=== PATIENT | male | born 1960 | race Caucasian/White ===

== ENCOUNTER 2018-09-05 00:58 | Emergency (ER) | payer OTHER ==
[~2018-09-05] VITALS: Ht 170.2 cm; Wt 59.0 kg
--- OUTSIDE RECORDS SUMMARY | 2018-09-05 01:02 | XMS REPORT | Continuity of Care Document ---
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 Chronic abdominal pain Problems Medical Problem Onset Date Status Abdominal pain Unknown Acute Tenesmus (rectal) Unknown Acute Constipation Unknown Chronic Nausea Unknown Acute Obstipation Unknown Acute Back pain Unknown Acute Anxiety about health Unknown Acute Chronic abdominal pain Unknown Chronic Left against medical advice Unknown Acute Retention of urine Unknown Acute Encounter for medical screening examination Unknown Acute Rectal pain Unknown Acute Hemorrhoid Unknown Acute Altered mental status Unknown Acute UTI (urinary tract infection) Unknown Bowel obstruction Unknown Acute Spina bifida Unknown Chronic Neuropathy Unknown Chronic Botello catheter in place on admission Unknown Chronic Anxiety Unknown Chronic Depression Unknown Chronic HTN (hypertension) Unknown Chronic Tobacco abuse Unknown Chronic Esophagitis Unknown Chronic Leukocytosis Unknown Chronic Leukocytosis (leucocytosis) Unknown Rectal bleeding Unknown Syncope Unknown Bradycardia Unknown Urinary retention Unknown Acute Ileus Unknown Past Problems Medical Problem Onset Date Status Chronic rectal pain Unknown Acute Prostatitis Unknown Acute History of chronic myeloid leukemia Unknown Acute Hypokalemia Unknown Acute Urinary retention Unknown Acute Hematuria Unknown Acute Dislodged Botello catheter Unknown Acute Chronic back pain Unknown Acute Left sided abdominal pain Unknown Acute Bacteria in urine Unknown Acute Therapeutic opioid-induced constipation (OIC) Unknown Acute Chronic pain Unknown Acute Acute constipation Unknown Acute Dehydration Unknown Acute Insomnia Unknown Acute Chronic constipation Unknown Acute Chronic rectal pain Unknown Acute Chronic rectal pain Unknown Acute Prostatitis Unknown Acute Chronic rectal pain Unknown Acute Chronic rectal pain Unknown Acute Chronic rectal pain Unknown Acute Medications Current Home Medications Medication Dose Units Route Directions Days Qty Instructions Start Date Acetaminophen/Hydrocodone Bitart (Keller 10/325) 1 Tab Tab 1 Tab Oral Every 4 Hours Alprazolam (Xanax) 1 Mg Tab 1 Mg Oral Three Times A Day as needed for Anxiety Amlodipine Besylate (Norvasc) 10 Mg Tab 10 Mg Oral Every Morning Benazepril Hcl (Lotensin) 20 Mg Tab 20 Mg Oral Daily Dicyclomine Hcl (Bentyl) 10 Mg Cap 10 Mg Oral Four Times Daily as needed for Pain 20 Capsule Take 1 capsule by mouth 4 times a day. 08/19/18 Docusate Sodium (Colace) 100 Mg Tablet 100 Mg Oral Twice A Day 7 Days 14 Tablet 06/18/17 Docusate Sodium (Colace) 100 Mg Cap 100 Mg Oral Twice A Day 10 Days 20 Capsule 06/28/18 Imatinib Mesylate (Gleevec) 400 Mg Tab 400 Mg Oral Daily Take with breakfast. Lactulose (Lactulose Liq,Constulose Liq, Enulose Liq) 10 Gm/15 Ml Syrp 10 Gm Oral Three Times A Day 7 Days 315 Milliliter 06/28/18 Ondansetron Hcl (Zofran Odt) 4 Mg Tab.rapdis 4 Mg Oral Every 4 Hours as needed for Nausea / Vomiting 5 Days 30 Tablet 01/15/18 Polyethylene Glycol 3350 (Miralax) 17 Gm Powd.pack 1 Pkg Oral Twice A Day 1 Bottle 06/29/17 Polyethylene Glycol 3350 (Miralax) 17 Gm Powd.pack 1 Pkg Oral Daily 30 Days 30 Packet 06/28/18 Zolpidem Tartrate (Ambien) 10 Mg Tablet 10 Mg Oral Bedtime as needed for Insomnia Past Home Medications Medication Directions Ordered Status Acetaminophen (Tylenol) 500 Mg Tab, 1000 Mg Oral Every 8 Hours 11/26/17 Discontinued Acetaminophen/Codeine Phosphate (Tylenol #3) 1 Tab Tab, 1 Tab Oral Every 6 Hours as needed for Pain 05/04/17 Discontinued Alprazolam (Xanax) 1 Mg Tab, 1 Mg Oral Three Times A Day as needed for Anxiety/Agitation Discontinued Cephalexin (Keflex) 500 Mg Cap, 500 Mg Oral Three Times A Day 08/07/18 Discontinued Cephalexin (Keflex) 500 Mg Cap, 500 Mg Oral Twice A Day 07/02/17 Discontinued Clindamycin Hcl (Cleocin) 300 Mg Cap, 300 Mg Oral Every 6 Hours 01/15/18 Discontinued Dicyclomine Hcl (Bentyl) 20 Mg Tab, 20 Mg Oral Four Times Daily 03/01/17 Discontinued Dicyclomine Hcl (Bentyl) 20 Mg Tab, 20 Mg Oral Four Times Daily 04/13/17 Discontinued Dicyclomine Hcl (Bentyl) 10 Mg Cap, 10 Mg Oral Four Times Daily 03/19/13 Discontinued Docusate Sodium (Colace) 100 Mg Cap, 100 Mg Oral Every 8 Hours as needed for Constipation 01/15/18 Discontinued Docusate Sodium (Colace) 100 Mg Tablet, 100 Mg Oral Three Times A Day 06/29/17 Discontinued Docusate Sodium (Colace) 100 Mg Cap, 100 Mg Oral Twice A Day 10/22/17 Discontinued Docusate Sodium (Colace) 100 Mg Cap, 100 Mg Oral Three Times A Day 04/13/17 Discontinued Docusate Sodium (Colace) 100 Mg Cap, 100 Mg Oral Three Times A Day 03/19/13 Discontinued Eszopiclone (Lunesta) 2 Mg Tablet, 2 Mg Oral Bedtime 01/19/18 Discontinued Hydrocortisone/Pramoxine (Analpram Hc 1% Cream) 28.4 Gm Cream.appl, 1 Applic Rectal Twice A Day Discontinued Hydroxyurea (Hydrea) 500 Mg Cap, 1000 Mg Oral Twice A Day Discontinued Hyoscyamine (Levsin) 0.125 Mg Subl, 0.25 Mg Sublingual Every 6 Hours as needed for Abdominal Cramps 01/15/18 Discontinued Lactulose (Lactulose Liq,Constulose Liq, Enulose Liq) 10 Gm/15 Ml Syrp, 20 Gm Oral Daily 10/22/17 Discontinued Lactulose (Lactulose Liq,Constulose Liq, Enulose Liq) 10 Gm/15 Ml Syrp, 10 Gm Oral Three Times A Day 11/17/17 Discontinued Lactulose (Lactulose Liq,Constulose Liq, Enulose Liq) 10 Gm/15 Ml Syrp, 10 Gm Oral Three Times A Day 04/21/18 Discontinued Levetiracetam (Keppra) 500 Mg Tab, 500 Mg Oral Twice A Day Discontinued Levofloxacin (Levaquin) 500 Mg Tab, 500 Mg Oral Daily Discontinued Levofloxacin (Levaquin) 500 Mg Tab, 500 Mg Oral Daily 08/11/17 Discontinued Levofloxacin (Levaquin) 750 Mg Tab, 750 Mg Oral Daily 04/29/18 Discontinued Levofloxacin (Levaquin) 750 Mg Tab, 750 Mg Oral Daily 01/15/18 Discontinued Magnesium Citrate (Magnesium Citrate Liq) 300 Ml Soln, 300 Ml Oral Once as needed for Constipation 01/15/18 Discontinued Mineral Oil (Fleet Oil Enema) 133 Ml Enem, 133 Ml Rectal Daily 07/18/17 Discontinued Mineral Oil (Fleet Oil Enema) 133 Ml Enem, 133 Ml Rectal Daily 10/22/17 Discontinued Miscellaneous Information (Home Med List- Unable To Obtain) Misc, 0 See Label Comments Xx For Order Sets Discontinued Polyethylene Glycol (Miralax (Bulk Bottle)) 1 Gm Powd, 17 Gm Oral Daily 10/24/15 Discontinued Polyethylene Glycol 3350 (Miralax) 17 Gm Powd.pack, 1 Pkg Oral Daily 01/29/18 Discontinued Polyethylene Glycol 3350 (Miralax) 17 Gm Powd.pack, 1 Pkg Oral Daily 10/22/17 Discontinued Polyethylene Glycol 3350 (Miralax) 17 Gm Powd.pack, 1 Pkg Oral Daily 04/15/17 Discontinued Polyethylene Glycol 3350 (Miralax) 17 Gm Powd.pack, 1 Pkg Oral Twice A Day 05/31/17 Discontinued Polyethylene Glycol/Electrolytes (Golytely Liq) 4,000 Ml Soln, 240 Ml Oral Once as needed for Constipation 11/10/17 Discontinued Polyethylene Glycol/Electrolytes (Golytely Liq) 4,000 Ml Soln, 240 Ml Oral Every 2 Hours 06/23/17 Discontinued Polyethylene Glycol/Electrolytes (Golytely Liq) 4,000 Ml Soln, 240 Ml Oral Once 11/03/17 Discontinued Psyllium Hydrophilic Mucilloid (Metamucil Original) Powd, 1 Gm Oral Daily Discontinued Sertraline Hcl (Zoloft) 100 Mg Tab, 100 Mg Oral Bedtime Discontinued Tramadol Hcl (Ultram) 50 Mg Tab, 50 Mg Oral Every 6 Hours 05/26/17 Discontinued Trazodone Hcl (Desyrel) 100 Mg Tab, 100 Mg Oral Bedtime Discontinued Trimethoprim/Sulfamethoxazole (Bactrim Ds, Septra Ds, Sulfatrim Ds) 1 Tab Tab, 1 Tab Oral Twice A Day 05/26/17 Discontinued Zolpidem Tartrate (Ambien) 10 Mg Tablet, 10 Mg Oral Bedtime as needed for Sle Discontinued Social History Social History Problem Response Recorded Date/Time Onset Date Status Hx Tobacco Use Y - 1 PPD 08/19/2018 7:01pm Not Applicable Not Applicable Smoking Status Start Date Stop Date Current Every Day Smoker Hospital Discharge Instructions No hospital discharge instruction information available. Plan of Care Discharge Date 08/19/18 8:37pm Disposition HOME, SELF-CARE 01 Condition at Discharge Stable Instructions/Education Provided Chronic Pain Prescriptions See Medication Section Referrals BEAU WALTERS DO Address: [address] [place], [place] [address] Note: JAELYN PEREZ MD Address: [facility] [address] [address] DELANO NDIAYE MD Address: [address] [address] DEMETRIO LYMAN DO Address: [address] [place] [id number] Additional Instructions/Education The urinalysis did not show any evidence of urinary tract infection The examination, your urine was noted to be clear yellow urine and there is no evidence of blood You have been recently seen at [facility] with a copy of your CT report You need to take this your primary care physician, and you may need to follow-up with a maintenance mechanic technician Names and contact numbers of several gastroenterologists have been given Functional Status Query Response Date Recorded Onset Within the Last 7 Days No Problem Identified August 19, 2018 7:01pm Allergies, Adverse Reactions, Alerts Allergen Type Severity Reaction Status Last Updated No Known Drug Allergies Allergy Unknown Active 04/29/18 Immunizations Query Response on File Recorded Date/Time HX of Pneumococcal Vaccine No 08/19/18 7:01pm HX of Influenza Vaccine Unknown 08/19/18 7:01pm Date Influenza Given 02/201708/19/18 7:01pm Tetanus Status 5 - 10 Years 08/19/18 7:01pm Hx Hepatitis B Vaccination Unknown 09/16/12 3:11am Vital Signs Acute Vital Signs Vital Response Date/Time Temperature (Fahrenheit) 98.3 degrees F (97.6 - 99.5) 08/19/2018 8:37pm Pulse Rate (adult) 60 bpm (60 - 100) 08/19/2018 7:02pm Pulse Rate 60 bpm 08/19/2018 8:37pm Respiratory Rate 20 breaths per minute (12 - 24) 08/19/2018 7:02pm Respiratory Rate 20 breaths per minute 08/19/2018 8:37pm Blood Pressure Systolic 128 mm Hg (100 - 140) 08/19/2018 7:02pm Blood Pressure Systolic 128 mm Hg 08/19/2018 8:37pm Blood Pressure Diastolic 83 mm Hg (60 - 90) 08/19/2018 7:02pm Blood Pressure Diastolic 83 mm Hg 08/19/2018 8:37pm Height 5 ft 7 in 08/19/2018 7:01pm Weight 130 lb 08/19/2018 7:01pm Body Mass Index 20.4 kg/m^2 08/19/2018 7:01pm Results Laboratory Results Test Name Result Units Flags Reference Collection Date/Time Result Date/Time Comments White Blood Count 8.8 10*3/uL 4.5-11.5 08/07/2018 7:38pm 08/07/2018 8:01pm Red Blood Count 4.31 10*6/uL L 4.4-6.2 08/07/2018 7:38pm 08/07/2018 8:01pm Hemoglobin 11.8 g/dL L 13.0-17.5 08/07/2018 7:38pm 08/07/2018 8:01pm Hematocrit 36.2 % L 39.0-52.5 08/07/2018 7:38pm 08/07/2018 8:01pm Mean Corpuscular Volume 84 fL 80-94 08/07/2018 7:38pm 08/07/2018 8:01pm Mean Corpuscular Hemoglobin 27.4 pg 27.0-33.0 08/07/2018 7:38pm 08/07/2018 8:01pm Mean Corpuscular Hemoglobin Concent 32.6 g/dL L 33.0-37.0 08/07/2018 7:38pm 08/07/2018 8:01pm Red Cell Distribution Width 17.8 % H 10.7-14.5 08/07/2018 7:38pm 08/07/2018 8:01pm Platelet Count 291 10*3/uL 150-450 08/07/2018 7:38pm 08/07/2018 8:01pm Mean Platelet Volume 9.5 fl 5.7-10.7 08/07/2018 7:38pm 08/07/2018 8:01pm Manual Differential ----- 08/07/2018 7:38pm 08/07/2018 8:01pm Neutrophils % (Manual) 70 % 42-75 08/07/2018 7:38pm 08/07/2018 8:27pm Lymphocytes % (Manual) 15 % L 21-51 08/07/2018 7:38pm 08/07/2018 8:27pm Monocytes % (Manual) 6 % 1-9 08/07/2018 7:38pm 08/07/2018 8:27pm Eosinophils % (Manual) 3 % 0-7 08/07/2018 7:38pm 08/07/2018 8:27pm Basophils % (Manual) 6 % H 0-2 08/07/2018 7:38pm 08/07/2018 8:27pm Platelet Estimate Adequate 08/07/2018 7:38pm 08/07/2018 8:27pm Anisocytosis 1+ 08/07/2018 7:38pm 08/07/2018 8:27pm Microcytosis 1+ 08/07/2018 7:38pm 08/07/2018 8:27pm Hypochromasia 1+ 08/07/2018 7:38pm 08/07/2018 8:27pm Urine Culture Indicated To follow A 08/07/2018 7:55pm 08/07/2018 8:20pm Sodium Level 133 mmol/L L 136-145 08/07/2018 7:38pm 08/07/2018 8:00pm Potassium Level 3.7 mmol/L 3.5-5.1 08/07/2018 7:38pm 08/07/2018 8:00pm Chloride Level 96 mmol/L L 98-107 08/07/2018 7:38pm 08/07/2018 8:00pm Carbon Dioxide Level 24 mmol/L 24-33 08/07/2018 7:38pm 08/07/2018 8:00pm Anion Gap 17 8-18 08/07/2018 7:38pm 08/07/2018 8:00pm Blood Urea Nitrogen 6 mg/dL 6-20 08/07/2018 7:38pm 08/07/2018 8:00pm Creatinine 0.6 mg/dL L 0.9-1.5 08/07/2018 7:38pm 08/07/2018 8:00pm Note: Acetaminophen and N-acetylcysteine can cause falsely low measurements of creatinine. Correlation with patient's medication history is recommended. Estimat Glomerular Filtration Rate 147 H 67-119 08/07/2018 7:38pm 08/07/2018 8:00pm Stages of Patients with Estimated GFR Known Kidney Disease (ml/min/1.73 sq.meters) Stage 1 - Kidney damage w/normal 90 mL/min or greater or increased GFR Stage 2 - Kidney disease w/mildly 60-89 mL/min decreased GFR Stage 3 - Moderately decreased GFR 30-59 mL/min Stage 4 - Severely decreased GFR 15-29 mL/min Stage 5 - Kidney failure 14 mL/min or less To estimate the GFR for Americans, multiply the result provided by 1.21. Glucose Level 89 mg/dL 60-100 08/07/2018 7:38pm 08/07/2018 8:00pm Calcium Level 9.1 mg/dL 9.1-10.9 08/07/2018 7:38pm 08/07/2018 8:00pm Total Bilirubin 0.8 mg/dL 0.0-1.0 08/07/2018 7:38pm 08/07/2018 8:00pm Aspartate Amino Transf (AST/SGOT) 17 U/L 0-40 08/07/2018 7:38pm 08/07/2018 8:00pm Alanine Aminotransferase (ALT/SGPT) 15 U/L 0-41 08/07/2018 7:38pm 08/07/2018 8:00pm Total Protein 7.4 g/dL 6.4-8.3 08/07/2018 7:38pm 08/07/2018 8:00pm Albumin 4.4 g/dL 3.5-5.0 08/07/2018 7:38pm 08/07/2018 8:00pm Alkaline Phosphatase 58 U/L 53-128 08/07/2018 7:38pm 08/07/2018 8:00pm Urine Source URINE 08/19/2018 7:45pm 08/19/2018 7:57pm Urine Color Colorless Yel-Jennifer * 08/19/2018 7:45pm 08/19/2018 8:01pm Urine Appearance Clear Clear * 08/19/2018 7:45pm 08/19/2018 8:01pm Urine pH 7.0 5.0-8.0 08/19/2018 7:45pm 08/19/2018 8:01pm Urine Specific [place] 1.005 1.005-1.030 08/19/2018 7:45pm 08/19/2018 8:01pm Urine Protein Negative mg/dL Negative * 08/19/2018 7:45pm 08/19/2018 8:01pm Urine Glucose (UA) Negative mg/dL Negative * 08/19/2018 7:45pm 08/19/2018 8:01pm Urine Ketones Negative mg/dL Negative * 08/19/2018 7:45pm 08/19/2018 8:01pm Urine Occult Blood Trace H Negative * 08/19/2018 7:45pm 08/19/2018 8:01pm Urine Nitrite Negative Negative 08/19/2018 7:45pm 08/19/2018 8:01pm Urine Bilirubin Negative mg/dL Negative 08/19/2018 7:45pm 08/19/2018 8:01pm Urine Urobilinogen Negative mg/dL 0.0-1.0 08/19/2018 7:45pm 08/19/2018 8:01pm Urine Leukocyte Esterase Negative Kary/uL Negative 08/19/2018 7:45pm 08/19/2018 8:01pm Microscopic Urinalysis (T) ----- 08/19/2018 7:45pm 08/19/2018 8:01pm Urine RBC 3-10 /HPF H 0-2 08/19/2018 7:45pm 08/19/2018 8:03pm Urine WBC 0-5 /HPF 0-5 08/19/2018 7:45pm 08/19/2018 8:03pm Urine Epithelial Cells None Seen /HPF Few 08/19/2018 7:45pm 08/19/2018 8:03pm Urine Crystals None Seen /HPF None * 08/19/2018 7:45pm 08/19/2018 8:03pm Urine Bacteria Few /HPF A None 08/19/2018 7:45pm 08/19/2018 8:03pm Urine Casts Present /LPF A None * 08/19/2018 7:45pm 08/19/2018 8:03pm Urine Hyaline Casts 0-1 /LPF 0-1 08/19/2018 7:45pm 08/19/2018 8:03pm Urine Yeast None Seen /HPF None 08/19/2018 7:45pm 08/19/2018 8:03pm Urinalysis Comment * * 08/19/2018 7:45pm 08/19/2018 8:01pm Ref Range=* Clinical evaluation required. Microbiology Results Procedure Source Organism/Result Collection Date/Time Result Date/Time Result Status Urine Culture Urine Stenotrophomonas maltophilia 08/07/2018 7:55pm 08/10/2018 7:18am Final Procedures Procedure Status Date Provider(s) ROUTINE VENIPUNCTURE Completed 08/07/18 INSERT TEMP BLADDER CATH Completed 08/07/18 SOM ADAMS DO X-RAY EXAM ABDOMEN 1 VIEW Completed 08/07/18 COMPREHEN METABOLIC PANEL Completed 08/07/18 URINALYSIS AUTO W/O SCOPE Completed 08/07/18 COMPLETE CBC W/AUTO DIFF WBC Completed 08/07/18 CULTURE AEROBIC IDENTIFY Completed 08/07/18 URINE CULTURE/COLONY COUNT Completed 08/07/18 MICROBE SUSCEPTIBLE MELANIE Completed 08/07/18 EMERGENCY DEPT VISIT Completed 08/07/18 X-ray of abdomen, single view Completed 08/07/18 ELLEN FRANCIS APN Encounters Encounter Location Arrival/Admit Date Discharge/Depart Date Attending Provider Departed Emergency Room [facility] 08/19/18 7:19pm 08/19/18 8:37pm SOM ADAMS DO Departed Emergency Room [facility] 08/07/18 7:15pm 08/07/18 9:28pm SOM ADAMS DO Recent Diagnosis
--- OUTSIDE RECORDS SUMMARY | 2018-09-05 01:02 | XMS REPORT | Continuity of Care Document ---
Author Author [facility] Organization [facility] Address Unknown Phone Unavailable Care Team Providers Care Supervisor Beam Department Name Role Phone Beau Walters DO PCP Insurance Providers Guarantor OrlandoMikhail Address [address] [place] [address] Email N Payer [employer] [facility] Policy Number [id number] Subscriber's Name Mikhail Lyons Relationship Self / Same As Patient Group Number [id number] Group Name MEDICAID Effective Date 11 Advance Directives Directive Response Recorded Date/Time Does the Patient have an Advance Directive? 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 Plan of Care Discharge Date 08/27/18 11:23am Disposition HOME, SELF-CARE 01 Condition at Discharge Stable Prescriptions See Medication Section Referrals BEAU WALTERS DO Address: [id number] [place] [address] Note: KELLY MARTÍNEZ MD Address: [address] [place] [address] [address] [place] [address] Additional Instructions/Education You were seen in the emergency department for clogged up Botello catheter. We are glad that you are able to pass urine without the catheter now. Please come back to see us for any new or worsening symptoms. Given your need for a Botello catheter for almost a month, I still recommend that you see and follow up with urology. 1. Thank you for allowing us to provide emergent medical care to you or your family member. We consider it a privilege to have served you during your illness or injury. 2. The examination and treatment that you have received has been on an emergency basis only and is not intended as an effort to provide complete medical care. It is impossible to recognize and treat all elements of an illness or injury in a single ER visit. 3. If you have received a prescription, please fill it TODAY and follow the instructions carefully. If you need a 24 hour pharmacy, the one closest available is [address], [place] [address]. 4. Follow up immediately with your regular doctor (within the next 48 hours). Please follow up with any specialists we may have discussed and provided you information or referrals on. Also, there may be some results we have found which are non-emergent but need to be followed up. When you see your primary doctor, have them call and obtain a full copy of the results from our Emergency Department. [facility] phone # [phone]. Please obtain a copy of the results immediately to follow up with your PCP. Ask for medical records. This must be done immediately within 24-48 hours. This is important for continuity of care and if not done, may lead to further issues in your medical care. 5. If you do NOT have a primary care doctor, please call and make an appointment with one of the following options: Sonya Find a Physician Line: [place] [address] [place] [id number] . [address] [address] [address]. [facility] [address] Jim[address] Higgins [facility] [address]. They may provide you with an alternate address for followup. Please make appointment immediately. Failure to do so could lead to issues in your medical care. This is important for continuity of care. 6. Return to the immediately ER for any new, worsening, or concerning symptoms. We are open 24 hours a day and you may return any time. We are happy to see you again to make sure everything is okay. 7. As part of your discharge instructions, we are including the following list of resources to help you obtain follow up treatment. 1. SON[facility] Find a Physician Referral Line.................................................[phone] 2. [place] [address] [place] [address] ....[phone] .. 4. [facility] [address] [place], [place] ...[phone] 5. [facility].......................[phone] 6. [facility] [place] [place], [place]..............[phone] 7. [facility] [place] [address] ....[phone] 8. [facility] [address], [place] .....[phone] 9. [facility], [address],[place], [place] [phone] 10. [facility] [place], [place] .................................[phone] 11. [facility] ([facility]), ............[phone] [address] [place], [place] 12. [facility] ................................................[phone] 13. [facility] ......................................................[phone] 14. Intake and Crisis/[facility] ..............[phone] [address] [facility] 15. [facility], [address] [place] [address] .................[phone] Substance Abuse [facility] ([facility]) [address] [place], [place] [phone] PRIVATE/PUBLIC SERVICES *Assists with Medication (if the client is an established patient) [facility]: [facility] ........................[phone] [facility]: *[employer] ...........................................[phone] *[facility] [place] ...........................[phone] *[facility] [place] ........................[phone] [facility] Dept. ................................[phone] [facility] ...................................[phone] [facility] Clinic ......................................[phone] [facility]: *[facility] (Open M,W,F 9:00am-12:00pm) ..........[phone] *[facility] (Open M,W,F 10:00am-2:00pm) ..........[phone] [facility] ......................................[phone] [facility] ........................................[phone] *[facility]Pct.1&2) [phone] *[facility]Pct.1&2) ..[phone] [facility] .........[phone] [facility] .......[phone] [facility]...... [phone] [facility] ...................................[phone] [facility]: *[facility] (Assist time 1 year) ......................[phone] *[facility] (Assist time 1 year) ............[phone] *JAVID Peralta (only [address] zip code) .........................[phone] *[facility] .......................[phone] [facility] .................................[phone] [facility] .....................................[phone] [facility] ........................[phone] [facility] ......................................[phone] [facility] (Referrals Only) ..........[phone] [facility]: *[facility] .................................[phone] *[facility] ..................................[phone] [facility] ..............[phone] [facility]: [facility] ..............................................[phone] [facility] .................................[phone] [facility] .............................................[phone] [facility] .................................[phone] [facility]: *[facility] ...................................[phone] *[facility] (pct 1&2) [phone] [facility] .......................................[phone] [facility]: *[facility] ............................[phone] *[facility] .....................................[phone] *[facility] ..........................[phone] *[facility] ....................................[phone] [facility] .......................................[phone] [facility]: [facility] .......................................[phone] [facility] ........................................[phone] ADDITIONAL SUGGESTIONS FOR MEDICATION ASSISTANCE: The Medicine Program INTERNET: http://www.Vizerra.Wikirin [address] email: help@[place] [place] [phone] Phone: Helps people apply for enrollment in one or more of the many patient assistance programs available through the iPling. There is a $5.00 processing fee which is refundable if there is no program available. If the patient is approved the medications are sent to a physician's office to be dispensed. The patient should inquire at their physicians office before enrolling in this program. VOL[employer]ERS IN HEALTH CARE: INTERNET: http://www.volunteersinhealthcare.org Web site that provides information and eligibility on medication assistance programs through pharmaceutical companies. The web site is information only--the patient along with their physician can pursue eligibility with the applicable pharmaceutical company. Consider talking to you physician about office sample or comparable medication which may be less costly. If on Medicaid, consider talking with you physician about writing your prescription for a 90-day supply. Medicaid will allow 3 prescriptions per month for a 90 day supply. Up to 9 medicaitons could be alternately filled without a lapse in coverage. If on Medicare and currently being prescribed medication for respiratoy treatment administered through a nebulizer, Medicare Part B will cover medication. Consider using a pharmacy that will flie Medicare for the medication. Also, on your smart phone, there is an application called WeOwe. This rakesh assists with finding the cheapest prescription in the area. Functional Status Query Response Date Recorded Onset Within the Last 7 Days No Problem Identified August 27, 2018 8:20am Allergies, Adverse Reactions, Alerts Allergen Type Severity Reaction Status Last Updated No Known Drug Allergies Allergy Unknown Active 04/29/18 Immunizations Query Response on File Recorded Date/Time HX of Pneumococcal Vaccine No 08/27/18 8:20am HX of Influenza Vaccine Unknown 08/27/18 8:20am Date Influenza Given 02/201708/27/18 8:20am Tetanus Status 5 - 10 Years 08/27/18 8:20am Hx Hepatitis B Vaccination Unknown 09/16/12 3:11am Vital Signs Acute Vital Signs Vital Response Date/Time Temperature (Fahrenheit) 98.2 degrees F (97.6 - 99.5) 08/27/2018 11:01am Pulse Rate (adult) 60 bpm (60 - 100) 08/27/2018 11:00am Pulse Rate 60 bpm 08/27/2018 11:01am Respiratory Rate 17 breaths per minute (12 - 24) 08/27/2018 11:00am Respiratory Rate 17 breaths per minute 08/27/2018 11:01am Blood Pressure Systolic 147 mm Hg (100 - 140) 08/27/2018 11:00am Blood Pressure Systolic 147 mm Hg 08/27/2018 11:01am Blood Pressure Diastolic 87 mm Hg (60 - 90) 08/27/2018 11:00am Blood Pressure Diastolic 87 mm Hg 08/27/2018 11:01am Height 5 ft 7 in 08/27/2018 8:10am Weight 140 lb 08/27/2018 8:10am Body Mass Index 21.9 kg/m^2 08/27/2018 8:10am Results Laboratory Results Test Name Result Units [...] To follow A 08/07/2018 7:55pm 08/07/2018 8:20pm Total Bilirubin 0.8 mg/dL 0.0-1.0 08/07/2018 7:38pm 08/07/2018 8:00pm Aspartate Amino Transf (AST/SGOT) 17 U/L 0-40 08/07/2018 7:38pm 08/07/2018 8:00pm Alanine Aminotransferase (ALT/SGPT) 15 U/L 0-41 08/07/2018 7:38pm 08/07/2018 8:00pm Total Protein 7.4 g/dL 6.4-8.3 08/07/2018 7:38pm 08/07/2018 8:00pm Albumin 4.4 g/dL 3.5-5.0 08/07/2018 7:38pm 08/07/2018 8:00pm Alkaline Phosphatase 58 U/L 53-128 08/07/2018 7:38pm 08/07/2018 8:00pm Urine RBC 3-10 /HPF H 0-2 08/19/2018 [...] Seen /HPF None 08/19/2018 7:45pm 08/19/2018 8:03pm Urine Source URINE 08/27/2018 10:11am 08/27/2018 10:18am Urine Color Lt Yellow Yel-Jennifer * 08/27/2018 10:11am 08/27/2018 10:20am Urine Appearance Clear Clear * 08/27/2018 10:11am 08/27/2018 10:20am Urine pH 7.0 5.0-8.0 08/27/2018 10:11am 08/27/2018 10:20am Urine Specific [place] 1.009 1.005-1.030 08/27/2018 10:11am 08/27/2018 10:20am Urine Protein Negative mg/dL Negative * 08/27/2018 10:11am 08/27/2018 10:20am Urine Glucose (UA) Negative mg/dL Negative * 08/27/2018 10:11am 08/27/2018 10:20am Urine Ketones Negative mg/dL Negative * 08/27/2018 10:11am 08/27/2018 10:20am Urine Occult Blood Negative Negative * 08/27/2018 10:11am 08/27/2018 10:20am Urine Nitrite Negative Negative 08/27/2018 10:11am 08/27/2018 10:20am Urine Bilirubin Negative mg/dL Negative 08/27/2018 10:11am 08/27/2018 10:20am Urine Urobilinogen Negative mg/dL 0.0-1.0 08/27/2018 10:11am 08/27/2018 10:20am Urine Leukocyte Esterase Negative Kary/uL Negative 08/27/2018 10:11am 08/27/2018 10:20am Microscopic Urinalysis (T) Not Ind 08/27/2018 10:11am 08/27/2018 10:20am Urinalysis Comment * * 08/27/2018 10:11am 08/27/2018 10:20am Ref Range=* Clinical evaluation required. Sodium Level 134 mmol/L L 136-145 08/27/2018 9:02am 08/27/2018 9:27am Potassium Level 3.8 mmol/L 3.5-5.1 08/27/2018 9:02am 08/27/2018 9:27am Chloride Level 97 mmol/L L 98-107 08/27/2018 9:02am 08/27/2018 9:27am Carbon Dioxide Level 30 mmol/L 24-33 08/27/2018 9:02am 08/27/2018 9:27am Anion Gap 11 8-18 08/27/2018 9:02am 08/27/2018 9:27am Blood Urea Nitrogen 4 mg/dL L 6-20 08/27/2018 9:02am 08/27/2018 9:27am Creatinine 0.7 mg/dL L 0.9-1.5 08/27/2018 9:02am 08/27/2018 9:27am Note: Acetaminophen and N-acetylcysteine can cause falsely low measurements of creatinine. Correlation with patient's medication history is recommended. Estimat Glomerular Filtration Rate 123 H 67-119 08/27/2018 9:02am 08/27/2018 9:27am Stages of Patients with Estimated GFR Known [...] the result provided by 1.21. Glucose Level 90 mg/dL 60-100 08/27/2018 9:02am 08/27/2018 9:27am Calcium Level 8.1 mg/dL L 9.1-10.9 08/27/2018 9:02am 08/27/2018 9:27am Bedside Sodium 134 mmol/L L 136-145 08/27/2018 8:47am 08/27/2018 8:52am Bedside Potassium 4.2 mmol/L 3.5-5.1 08/27/2018 8:47am 08/27/2018 8:52am Bedside Chloride 94 mmol/L L 100-112 08/27/2018 8:47am 08/27/2018 8:52am Bedside Total CO2 30.0 mmol/L 24.0-33.0 08/27/2018 8:47am 08/27/2018 8:52am Bedside Blood Urea Nitrogen < 3 mg/dL L 6-20 08/27/2018 8:47am 08/27/2018 8:52am Bedside Creatinine 0.7 mg/dL L 0.9-1.5 08/27/2018 8:47am 08/27/2018 8:52am Bedside Glucose 87 mg/dL 60-100 08/27/2018 8:47am 08/27/2018 8:52am Bedside Whole Blood Ionized Calcium 1.13 mmol/L 1.12-1.32 08/27/2018 8:47am 08/27/2018 8:52am Bedside Anion Gap 15 8-18 08/27/2018 8:47am 08/27/2018 8:52am Estimat Glomerular Filtration Rate 123 H 67-119 08/27/2018 8:47am 08/27/2018 8:52am Stages of Patients with Estimated GFR Known [...] Americans, multiply the result provided by 1.21. Bedside Hemoglobin 9.9 g/dL L 13.0-17.5 08/27/2018 8:47am 08/27/2018 8:52am Bedside Hematocrit 29.0 % L 40.0-53.0 08/27/2018 8:47am 08/27/2018 8:52am Microbiology Results Procedure Source Organism/Result Collection Date/Time [...] Completed 08/07/18 EMERGENCY DEPT VISIT Completed 08/07/18 URINALYSIS AUTO W/O SCOPE Completed 08/19/18 EMERGENCY DEPT VISIT Completed 08/19/18 X-ray of abdomen, single view Completed 08/07/18 ELLEN FRANCIS APN Encounters Encounter Location Arrival/Admit Date Discharge/Depart Date Attending Provider Registered Emergency Room [facility] 08/27/18 8:17am TRIPP MANCUSO MD Departed Emergency Room [facility] 08/19/18 7:19pm 08/19/18 8:37pm SOM ADAMS DO Departed Emergency Room [facility] 08/07/18 7:15pm 08/07/18 9:28pm SOM ADAMS DO Recent Diagnosis
--- OUTSIDE RECORDS SUMMARY | 2018-09-05 01:02 | XMS REPORT | Clinical Summary ---
Author Author [facility] Organization [facility] Address Unknown Phone Unavailable Care Team Providers Care Solar Field Service Technician Name Role Phone System, Provider Not In MD PCP Unavailable Allergies No Known Allergies Medications End Date Status Medication Sig Dispensed Refills Start Date Active benazepril (LOTENSIN) 20 Take 20 mg by 0 MG tablet mouth every morning. Active amLODIPine (NORVASC) 10 Take 10 mg by 0 mg tablet mouth every morning. Active imatinib (GLEEVEC) 400 MG Take 400 mg 0 chemo tablet by mouth every morning. Pt own meds Active mirtazapine (REMERON) 30 Take 30 mg by 0 MG tablet mouth nightly. Active ALPRAZolam (XANAX) 1 MG Take 1 mg by 0 tablet mouth 3 (three) times a day as needed for anxiety. Active sodium phosphates (ENEMA) Insert 133 mL 6 Bottle 0 19-7 gram/118 mL enema (1 Bottle 9 total) into the rectum once as needed (constipation ) for up to 1 dose. 10/05/2017 Discontinued ALPRAZolam (XANAX) 1 MG Take 1 mg by 0 tablet mouth 3 (three) times a day as needed for anxiety. 10/05/2017 Discontinued oxyCODone (OxyCONTIN) 20 Take 20 mg by 0 MG 12 hr tablet mouth every 12 (twelve) hours. 12/11/2017 Discontinued mirtazapine (REMERON Take 30 mg by 0 LUIS A-TAB) 30 MG mouth disintegrating tablet nightly. 10/05/2017 Discontinued zolpidem (AMBIEN) 10 mg Take 10 mg by 0 tablet mouth nightly as needed for sleep. 09/09/2017 Discontinued lactulose 20 gram/30 mL Take 15 mL 450 mL 0 solution (10 g total) 8 by mouth daily as needed (Constipation ). 09/09/2017 Discontinued metroNIDAZOLE (FLAGYL) Take 1 tablet 20 tablet 0 500 MG tablet (500 mg 8 total) by mouth 2 (two) times a day for 10 days. 09/09/2017 Discontinued ciprofloxacin (CIPRO) 500 Take 1 tablet 14 tablet 0 09/01/201 MG tablet (500 mg 8 total) by mouth 2 (two) times a day for 7 days. 09/09/2017 Discontinued metroNIDAZOLE (FLAGYL) Take 1 tablet 21 tablet 0 500 MG tablet (500 mg 8 total) by mouth 3 (three) times a day for 7 days. 09/09/2017 Discontinued acetaminophen-codeine Take 1-2 15 tablet 0 (TYLENOL WITH CODEINE #3) tablets by 8 300-30 mg per tablet mouth every 6 (six) hours as needed for moderate pain for up to 10 days. 09/13/2017 metroNIDAZOLE (FLAGYL) Take 1 tablet 10 tablet 0 500 MG tablet (500 mg 8 total) by mouth 3 (three) times a day for 4 days. 10/10/2017 tamsulosin (FLOMAX) 0.4 Take 1 30 capsule 1 mg capsule,extended capsule (0.4 8 release 24hr mg total) by mouth daily for 30 days. 09/20/2017 docusate (COLACE) 50 mg/5 Take 5 mL (50 50 mL 0 mL liquid mg total) by 8 mouth daily for 10 days. 10/05/2017 Discontinued lactulose 20 gram/30 mL Take 15 mL 450 mL 0 solution (10 g total) 8 by mouth daily as needed (Constipation ) for up to 30 days. 10/05/2017 Discontinued magnesium hydroxide 400 Take 30 mL by 1 Bottle 1 mg/5 mL suspension mouth 2 (two) 8 times a day as needed (constipation ) for up to 30 days. 10/05/2017 Discontinued polyethylene glycol Take 17 g by 10 packet 1 (MIRALAX) 17 gram packet mouth daily 8 as needed for constipation for up to 30 days. 09/19/2017 acetaminophen-codeine Take 1 tablet 20 tablet 0 (TYLENOL WITH CODEINE #3) by mouth 8 300-30 mg per tablet every 6 (six) hours as needed for moderate pain for up to 10 days. 09/12/2017 ciprofloxacin (CIPRO) 500 Take 1 tablet 7 tablet 0 MG tablet (500 mg 8 total) by mouth 2 (two) times a day for 3 days. 09/25/2017 Discontinued hydrocortisone 1 % Apply 28 g 0 ointment topically 2 8 (two) times a day for 30 days. Don't use more than 5 days. 09/29/2017 Discontinued ciprofloxacin (CIPRO) 500 Take 1 tablet 14 tablet 0 MG tablet (500 mg 8 total) by mouth 2 (two) times a day for 7 days. 09/29/2017 Discontinued metroNIDAZOLE (FLAGYL) Take 1 tablet 21 tablet 0 500 MG tablet (500 mg 8 total) by mouth 3 (three) times a day for 7 days. 10/08/2017 metroNIDAZOLE (FLAGYL) Take 1 tablet 18 tablet 0 500 MG tablet (500 mg 8 total) by mouth 2 (two) times a day for 9 days. 10/13/2017 Discontinued sennosides-docusate Take 1 tablet 60 tablet 0 sodium (SENOKOT-S) 8.6-50 by mouth 2 8 mg per tablet (two) times a day for 30 days. 09/29/2017 Discontinued HYDROcodone-acetaminophen Take 1 tablet 40 tablet 0 (NORCO) 5-325 mg per by mouth 8 tablet every 6 (six) hours as needed for moderate pain for up to 10 days. Max Daily Amount: 4 tablets 10/08/2017 ciprofloxacin (CIPRO) 500 Take 1.5 18 tablet 0 MG tablet tablets (750 8 mg total) by mouth 2 (two) times a day for 9 days. 09/29/2017 Discontinued ondansetron (ZOFRAN) 4 MG Take 1 tablet 20 tablet 0 tablet (4 mg total) 8 by mouth every 8 (eight) hours as needed for nausea or vomiting for up to 30 days. 10/29/2017 ondansetron (ZOFRAN) 4 MG Take 1 tablet 20 tablet 0 tablet (4 mg total) 8 by mouth every 8 (eight) hours as needed for nausea or vomiting for up to 30 days. 10/05/2017 Discontinued acetaminophen-codeine Take 1 tablet 48 tablet 0 (TYLENOL WITH CODEINE #3) by mouth 8 300-30 mg per tablet every 6 (six) hours as needed for moderate pain for up to 12 days. 10/31/2017 dicyclomine (BENTYL) 10 Take 1 90 capsule 0 MG capsule capsule (10 8 mg total) by mouth 3 (three) times a day for 30 days. 10/12/2017 oxyCODone (OxyCONTIN) 20 Take 1 tablet 10 tablet 0 mg tablet,oral (20 mg total) 8 only,ext.rel.12 hr ER by mouth tablet every 12 (twelve) hours for 7 days. Max Daily Amount: 40 mg 11/12/2017 polyethylene glycol Take 17 g by 30 packet 0 (MIRALAX) 17 gram packet mouth daily 8 for 30 days. 11/12/2017 sennosides-docusate Take 1 tablet 30 tablet 0 sodium (SENOKOT-S) 8.6-50 by mouth 8 mg per tablet daily for 30 days. 12/01/2017 Discontinued oxybutynin (DITROPAN) 5 Take 1 tablet 90 tablet 0 MG tablet (5 mg total) 8 by mouth 3 (three) times a day for 30 days. 12/07/2017 Discontinued lactulose (CHRONULAC) 10 Take 30 mL 2700 mL 0 gram/15 mL solution (20 g total) 8 by mouth 3 (three) times a day for 30 days. 12/09/2017 ciprofloxacin (CIPRO) 500 Take 1 tablet 28 tablet 0 MG tablet (500 mg 8 total) by mouth 2 (two) times a day for 14 days. 12/07/2017 Discontinued metroNIDAZOLE (FLAGYL) Take 1 tablet 30 tablet 0 500 MG tablet (500 mg 8 total) by mouth 3 (three) times a day for 10 days. 01/29/2018 Discontinued ALPRAZolam (XANAX) 2 MG Take 1 mg by 0 tablet mouth every evening. 12/11/2017 Discontinued hydromorPHONE (DILAUDID) Take 1 tablet 10 tablet 0 2 MG tablet (2 mg total) 8 by mouth every 6 (six) hours as needed for severe pain (score 7-10) for up to 7 days. Max Daily Amount: 8 mg 12/20/2017 Discontinued sennosides-docusate Take 1 tablet 30 tablet 0 sodium (SENOKOT-S) 8.6-50 by mouth 2 8 mg per tablet (two) times a day as needed for constipation for up to 30 days. 12/11/2017 Discontinued oxybutynin (DITROPAN) 5 Take 1 tablet 90 tablet 0 MG tablet (5 mg total) 8 by mouth 3 (three) times a day for 30 days. 12/11/2017 Discontinued hydromorPHONE (DILAUDID) Take 1 tablet 0 2 MG tablet (2 mg total) 8 by mouth every 6 (six) hours as needed for moderate pain (score 4-6) for up to 10 days. Max Daily Amount: 8 mg 01/29/2018 Discontinued morPHINE (MSIR) 30 MG Take 30 mg by 0 tablet mouth 3 (three) times a day as needed for severe pain. 01/29/2018 Discontinued tamsulosin (FLOMAX) 0.4 Take 0.4 mg 0 mg capsule by mouth daily. 12/18/2017 sulfamethoxazole-trimetho Take 1 tablet 14 tablet 0 prim (BACTRIM DS) 800-160 by mouth 2 8 mg per tablet (two) times a day for 7 days. smx-tmp DS (BACTRIM) 800-160 mg tabs (1tab q12 D10) 12/15/2017 Discontinued sulfamethoxazole-trimetho Take 1 tablet 14 tablet 0 prim (BACTRIM DS) 800-160 by mouth 2 8 mg per tablet (two) times a day for 7 days. smx-tmp DS (BACTRIM) 800-160 mg tabs (1tab q12 D10) 12/28/2017 Discontinued sulfamethoxazole-trimetho Take 1 tablet 20 tablet 0 prim (BACTRIM DS) 800-160 by mouth 2 8 mg per tablet (two) times a day for 10 days. smx-tmp DS (BACTRIM) 800-160 mg tabs (1tab q12 D10) 01/19/2018 docusate sodium (COLACE) Take 1 60 capsule 0 100 MG capsule capsule (100 8 mg total) by mouth every 12 (twelve) hours for 30 days. 01/19/2018 sennosides-docusate Take 1 tablet 30 tablet 0 sodium (SENOKOT-S) 8.6-50 by mouth 8 mg per tablet daily for 30 days. 01/04/2018 ciprofloxacin (CIPRO) 500 Take 1 tablet 14 tablet 0 MG tablet (500 mg 8 total) by mouth 2 (two) times a day for 7 days. 01/17/2018 Discontinued polyethylene glycol Take 17 g by 30 packet 0 (MIRALAX) 17 gram packet mouth daily 8 for 30 days. 01/14/2018 glycerin, adult, Insert 1 24 0 suppository rectal suppository suppository 8 suppository into the rectum 2 (two) times a day as needed (constipation ) for up to 7 days. 01/09/2018 bisacodyl (DULCOLAX, Take 1 tablet 30 tablet 0 BISACODYL,) 5 mg EC (5 mg total) 8 tablet by mouth daily as needed for constipation for up to 2 days. 01/19/2018 dicyclomine (BENTYL) 20 Take 1 tablet 10 tablet 0 mg tablet (20 mg total) 8 by mouth daily for 10 days. 02/16/2018 polyethylene glycol Take 17 g by 30 packet 0 (MIRALAX) 17 gram packet mouth daily 8 for 30 days. 01/29/2018 Discontinued polyethylene glycol Take 17 g by 30 packet 0 (MIRALAX) 17 gram packet mouth daily 8 for 30 days. 02/04/2018 levoFLOXacin (LEVAQUIN) Take 1 tablet 5 tablet 0 500 MG tablet (500 mg 8 total) by mouth daily for 5 days. 03/04/2018 Discontinued tamsulosin (FLOMAX) 0.4 Take 1 30 capsule 0 mg capsule capsule (0.4 8 mg total) by mouth daily for 30 days. 03/04/2018 Discontinued acetaminophen-codeine Take 1-2 15 tablet 0 (TYLENOL WITH CODEINE #3) tablets by 8 300-30 mg per tablet mouth every 6 (six) hours as needed for moderate pain for up to 15 days. 03/04/2018 Discontinued ciprofloxacin (CIPRO) 500 Take 1 tablet 14 tablet 0 MG tablet (500 mg 8 total) by mouth 2 (two) times a day for 7 days. 03/04/2018 Discontinued oxyCODone (OxyCONTIN) 20 Take 20 mg by 0 MG 12 hr tablet mouth every 12 (twelve) hours. 04/04/2018 tamsulosin (FLOMAX) 0.4 Take 1 30 capsule 0 mg capsule capsule (0.4 8 mg total) by mouth daily for 30 days. 03/18/2018 lactulose (CEPHULAC) 10 Take 2 40 packet 1 gram packet packets (20 g 8 total) by mouth 2 (two) times a day as needed (constipation ) for up to 14 days. 04/03/2018 polyethylene glycol Take 17 g by 30 packet 0 (MIRALAX) 17 gram packet mouth daily 8 for 30 days. 03/09/2018 traMADol-acetaminophen Take 1 tablet 20 tablet 0 (ULTRACET) 37.5-325 mg by mouth 8 per tablet every 8 (eight) hours as needed for moderate pain for up to 5 days. 04/14/2018 metoclopramide (REGLAN) 5 Take 1 tablet 16 tablet 0 MG tablet (5 mg total) 8 by mouth 3 (three) times a day as needed (nausea or vomiting) for up to 5 days. 04/24/2018 glycerin, adult, Insert 1 10 each 0 suppository rectal suppository 8 suppository into the rectum once as needed (constipation ) for up to 5 days. 04/26/2018 metroNIDAZOLE (FLAGYL) Take 1 tablet 21 tablet 0 500 MG tablet (500 mg 8 total) by mouth 3 (three) times a day for 7 days. 05/21/2018 magnesium hydroxide Take 30 mL by 118 mL 0 (magnesium hydroxide) 400 mouth nightly 8 mg/5 mL suspension as needed (constipation ) for up to 30 days. 04/21/2018 milk and molasses enema Insert 100 mL 100 mL 0 into the 8 rectum once for 1 dose. 05/25/2018 sucralfate (CARAFATE) 1 Take 1 tablet 120 tablet 0 gram tablet (1 g total) 8 by mouth 4 (four) times a day for 30 days. 05/25/2018 dicyclomine (BENTYL) 20 Take 1 tablet 60 tablet 0 mg tablet (20 mg total) 8 by mouth 2 (two) times a day for 30 days. 05/27/2018 hydrocortisone-pramoxine Insert 1 10 g 0 (PROCTOFOAM HC) 1-1 % applicator 8 rectal foam into the rectum 2 (two) times a day for 30 days. 05/27/2018 sennosides-docusate Take 1 tablet 30 tablet 0 sodium (SENOKOT-S) 8.6-50 by mouth 8 mg per tablet daily for 30 days. 05/30/2018 simethicone (GAS-X) 80 MG Chew 1 tablet 20 tablet 0 chewable tablet (80 mg total) 8 every 6 (six) hours as needed for flatulence for up to 30 days. 06/13/2018 ciprofloxacin (CIPRO) 500 Take 1 tablet 14 tablet 0 MG tablet (500 mg 9 total) by mouth 2 (two) times a day for 7 days. 07/06/2018 dicyclomine (BENTYL) 20 Take 1 tablet 60 tablet 0 mg tablet (20 mg total) 9 by mouth 2 (two) times a day for 30 days. 06/20/2018 sucralfate (CARAFATE) 1 Take 1 tablet 42 tablet 0 gram tablet (1 g total) 9 by mouth 3 (three) times a day for 14 days. 06/24/2018 ciprofloxacin (CIPRO) 500 Take 1 tablet 14 tablet 0 MG tablet (500 mg 9 total) by mouth 2 (two) times a day for 7 days. 06/24/2018 metroNIDAZOLE (FLAGYL) Take 1 tablet 21 tablet 0 500 MG tablet (500 mg 9 total) by mouth 3 (three) times a day for 7 days. 07/12/2018 lactulose 10 gram/15 mL Take 15 mL 300 mL 0 (15 mL) solution (10 g total) 9 by mouth daily as needed (constipaiton ) for up to 15 days. 07/27/2018 famotidine (PEPCID) 20 MG Take 1 tablet 60 tablet 0 tablet (20 mg total) 9 by mouth 2 (two) times a day for 30 days. 07/02/2018 polyethylene glycol Take 4,000 mL 4000 mL 0 (GOLYTELY) 236-22.74-6.74 by mouth once 9 -5.86 gram solution for 1 dose. 08/15/2018 polyethylene glycol Take 17 g by 30 packet 0 (MIRALAX) 17 gram packet mouth daily 9 for 30 days. Status Hospital, Clinic, or Ordered Dose Route Frequency Start End Date Other Facility Date Administered Medication Discontinued cefTRIAXone (ROCEPHIN) 1 g IV once 12/13/19 injection 1 g 18 8 Active Problems Problem Noted Date Acute pancreatitis 06/26/2018 [facility] 05/24/2018 Urinary retention 12/14/2017 Urinary tract infection associated with indwelling urethral catheter 12/12/2017 Malnutrition 12/12/2017 Benign prostatic hyperplasia with lower urinary tract symptoms 12/04/2017 Systemic infection 12/03/2017 Sepsis 12/01/2017 Anasarca 12/01/2017 Leukocytosis 12/01/2017 Chronic pain syndrome 10/04/2017 Chronic bilateral low back pain without sciatica 10/04/2017 Colitis 09/25/2017 Abdominal pain 09/04/2017 Essential hypertension 09/04/2017 Drug-induced constipation 09/04/2017 CML (chronic myelocytic leukemia) 09/04/2017 Nausea and vomiting 09/04/2017 Generalized abdominal pain 09/03/2017 Syncope 08/28/2017 Encounters Care Team Description Date Type Specialty Estefania Gavlan DO [facility] (Primary Dx); Urinary retention 09/02/2018 Emergency Emergency Medicine 09/02/2018 Travel Marisol Muro MD Rectal pain (Primary Dx) 07/18/2018 Emergency Emergency Medicine Lavon Ferrari MD Rectal pain (Primary Dx) 07/16/2018 Emergency Emergency Medicine 07/16/2018 Travel Estefania Galvan DO Rectal spasm (Primary Dx) 07/02/2018 Emergency Emergency Medicine Alex Carrasco MD Joglekar, Swati, MD Yerramadha, Muralidhar Reddy, MD Acute pancreatitis, unspecified complication status, unspecified pancreatitis type (Primary Dx) 06/25/2018 Emergency General Internal Medicine - 06/27/2018 Lavon Ferrari MD Bavare, Arusha Amod, MD Colitis (Primary Dx); Enteritis; Urinary tract infection without hematuria, site unspecified 06/17/2018 Emergency General Internal Medicine Real Cantrell MD Constipation, unspecified constipation type (Primary Dx); Gross hematuria 06/09/2018 Emergency Emergency Medicine Alex Andrews MD Urinary tract infection in male (Primary Dx); Abdominal spasms 06/06/2018 Emergency Emergency Medicine - 2018 06/06/2018 Travel Estefania Galvan DO [facility] (Primary Dx); Urinary retention 05/24/2018 Emergency Emergency Medicine - 05/25/2018 Yash Da Silva, [facility] (Primary Dx) 05/07/2018 Emergency Emergency Medicine Alex Carrasco MD Norinsky, Alexander B., [facility] (Primary Dx) 05/05/2018 Emergency Emergency Medicine Terry Molina Jr., MD Abdominal pain, unspecified abdominal location (Primary Dx) 04/30/2018 Emergency Emergency Medicine Yash Da Silva, DO [facility] (Primary Dx) 04/27/2018 Emergency Emergency Medicine Alex Andrews MD Constipation, unspecified constipation type (Primary Dx); Colitis; Abdominal pain, unspecified abdominal location 04/25/2018 Emergency Emergency Medicine Yunior Mireles MD Constipation, unspecified constipation type (Primary Dx) 04/21/2018 Emergency Emergency Medicine Estefania Galvan DO Colitis (Primary Dx); Constipation, unspecified constipation type 04/19/2018 Emergency Emergency Medicine Tunde Krishnan MD Rectal pain (Primary Dx); [facility] (rectal); Acute generalized abdominal pain 04/12/2018 Emergency Emergency Medicine Liu Gamboa MD Generalized abdominal pain (Primary Dx) 04/09/2018 Emergency Emergency Medicine Alex Andrews MD Generalized abdominal pain (Primary Dx) 04/05/2018 Emergency Emergency Medicine Alex Carrasco MD Abdominal pain, unspecified abdominal location (Primary Dx) 03/21/2018 Emergency Emergency Medicine Gerardo Ochoa MD Joglekar, Swati, MD Li, Xiao Hong, MD Abdominal pain, unspecified abdominal location (Primary Dx); Generalized abdominal pain 03/02/2018 Emergency General Internal Medicine - 03/04/2018 Yunior Mireles MD Gastroenteritis (Primary Dx) 02/23/2018 Emergency Emergency Medicine - 02/24/2018 Nathaniel Jose MD Abdominal pain, unspecified abdominal location (Primary Dx); Constipation, unspecified constipation type 02/13/2018 Emergency Emergency Medicine Tunde Krishnan MD Abouelseoud, Tanseem Hamad Mohamed A, MD Sepsis, due to unspecified organism (Primary Dx); Acute UTI; Acute prostatitis 01/29/2018 [facility] General Surgery - Encounter 01/30/2018 Alex Andrews MD Chronic abdominal pain (Primary Dx); Constipation, unspecified constipation type 01/26/2018 Emergency Emergency Medicine Lavon Ferrari MD Constipation, unspecified constipation type (Primary Dx) 01/17/2018 Emergency Emergency Medicine Emanuel Jesus DO Constipation, unspecified constipation type (Primary Dx) 01/09/2018 Emergency Emergency Medicine Ezra Feldman Jr., MD Constipation, unspecified constipation type (Primary Dx); Presence of indwelling Botello catheter; Abdominal cramping 01/07/2018 Emergency Emergency Medicine Justin Alves MD Rectal pain, chronic (Primary Dx) 01/03/2018 Emergency Emergency Medicine - 01/04/2018 Alex Andrews MD Constipation, unspecified constipation type (Primary Dx); Urinary tract infection in male 12/28/2017 Emergency Emergency Medicine Real Cantrell MD Therapeutic opioid-induced constipation (OIC) (Primary Dx) 12/23/2017 Emergency Emergency Medicine - 12/24/2017 Alex Carrasco MD Constipation due to opioid therapy (Primary Dx); Abdominal pain, unspecified abdominal location; Anxiety about health 12/19/2017 Emergency Emergency Medicine - 12/20/2017 Justin Alves MD Urinary retention (Primary Dx) 12/15/2017 Emergency Emergency Medicine Yunior Mireles MD Bavare, Arusha Amod, MD Urinary tract infection associated with indwelling urethral catheter, initial encounter (Primary Dx); Dehydration; Rectal pain 12/12/2017 Emergency General Internal Medicine - 12/14/2017 Yunior Mireles MD Generalized weakness (Primary Dx); Blurred vision; Acute cystitis without hematuria 12/11/2017 Emergency Emergency Medicine Lavon Ferrari MD Urinary retention (Primary Dx) 12/10/2017 Emergency Emergency Medicine Mir Henry MD 12/03/2017 Anesthesia General Surgery Event Jackson Cloud MD Cystoscopy, With Turp 12/03/2017 Surgery General Surgery Alex Carrasco MD Bavare, Arusha Amod, MD Li, Xiao Hong, MD Sepsis, due to unspecified organism (Primary Dx); Abdominal pain, unspecified abdominal location; Anasarca; Leukocytosis, unspecified type; Elevated lactic acid level; Benign prostatic hyperplasia with urinary obstruction; Benign prostatic hyperplasia with urinary frequency 12/01/2017 [facility] General Internal Medicine - Encounter 12/07/2017 Tunde Greer II MATERIAL SPREADERAlex Sun MD Colitis (Primary Dx) 11/25/2017 Emergency Emergency Medicine Estefania Galvan DO Urinary urgency (Primary Dx) 11/21/2017 Emergency Emergency Medicine Nathaniel Jose MD Abdominal pain, unspecified abdominal location (Primary Dx); Constipation, unspecified constipation type 11/18/2017 Emergency Emergency Medicine 10/18/2017 Emergency Emergency Medicine Yash Bronson MD Drug-induced constipation (Primary Dx) 10/13/2017 Emergency Emergency Medicine Gerardo Ochoa MD Abdominal pain, unspecified abdominal location (Primary Dx); Constipation, unspecified constipation type 10/09/2017 Emergency Emergency Medicine Lavon Ferrari MD Joglekar, Swati, MD Li, Xiao Hong, MD Colitis (Primary Dx); Dehydration; Chronic pain syndrome 10/04/2017 Emergency General Internal Medicine - 10/05/2017 Raquel Zarate MA 10/01/2017 Telephone Gastroenterology Raquel Zarate MA 09/29/2017 Telephone Gastroenterology Delphine Cassidy MD COLONOSCOPY 09/28/2017 Surgery Gastroenterology Carlos Buck MD 09/28/2017 Anesthesia Gastroenterology Event Alex Carrasco MD Bavare, Arusha Amod, MD Colitis (Primary Dx); Sepsis, due to unspecified organism 09/25/2017 Hospital General Surgery - Encounter 09/29/2017 Marisol Muro MD Colitis (Primary Dx) 09/17/2017 Emergency Emergency Medicine Nathaniel Jose MD Generalized abdominal pain (Primary Dx) 09/09/2017 Emergency Emergency Medicine Alex Andrews MD Joglekar, Swati, MD Morris, David, DO Bavare, Arusha Amod, MD Generalized abdominal pain (Primary Dx); Intractable pain; Drug-induced constipation 09/03/2017 [facility] General Internal Medicine - Encounter 09/09/2017 after 09/04/2017 Family History Medical History Relation Name Comments Diabetes Father Hypertension Father Relation Name Status Comments Father Social History Date Tobacco Use Types Packs/Day Years Used Current Some Day Smoker Cigarettes 1 Smokeless Tobacco: Never Used Alcohol Use Drinks/Week oz/Week Comments No Sex Assigned at Date Recorded Not on file Industry Job Start Date Occupation Not on file Not on file Not on file Travel End Travel History Travel Start No recent travel history available. Last Filed Vital Signs Time Taken Vital Sign Reading 09/02/2018 10:54 AM CDT Blood Pressure 154/74 09/02/2018 10:54 AM CDT Pulse 57 09/02/2018 10:54 AM CDT Temperature 36.6 C (97.9 F) 09/02/2018 10:54 AM CDT Respiratory Rate 16 09/02/2018 10:54 AM CDT Oxygen Saturation 100% - Inhaled Oxygen - Concentration 09/02/2018 9:05 AM CDT Weight 63.5 kg (140 lb) 09/02/2018 9:05 AM CDT Height 170.2 cm (5' 7") 09/02/2018 9:05 AM CDT Body Mass Index 21.93 Plan of Treatment Health Maintenance Due Date Last Done Comments SHINGLES VACCINES (#1) 2010 INFLUENZA VACCINE 12/09/2018 02/08/2017 COLON CANCER SCREENING 06/06/2028 06/06/2018, 01/29/2018 Procedures Comments Procedure Name Priority Date/Time Associated Diagnosis URINALYSIS SCREEN AND STAT 09/02/2018 MICROSCOPY, WITH REFLEX 10:26 AM CDT TO CULTURE URINE CULTURE STAT 09/02/2018 10:26 AM CDT XR ABDOMEN 2 VW AP W STAT 09/02/2018 UPRIGHT AND/OR DECUBITUS 10:06 AM CDT GRAM STAIN STAT 07/18/2018 4:06 AM CDT URINE CULTURE STAT 07/18/2018 4:06 AM CDT URINALYSIS SCREEN AND STAT 07/18/2018 MICROSCOPY, WITH REFLEX 3:43 AM CDT TO CULTURE ESTIMATED GFR STAT 07/18/2018 3:35 AM CDT HEPATIC FUNCTION PANEL STAT 07/18/2018 3:35 AM CDT LIPASE LEVEL STAT 07/18/2018 3:35 AM CDT BASIC METABOLIC PANEL STAT 07/18/2018 3:35 AM CDT HC COMPLETE BLD COUNT STAT 07/18/2018 W/AUTO DIFF 3:35 AM CDT URINALYSIS SCREEN AND STAT 07/16/2018 MICROSCOPY, WITH REFLEX 4:50 AM DELIVERY ANALYST TO CULTURE BASIC METABOLIC PANEL Routine 06/27/2018 8:31 AM DELIVERY ANALYST ESTIMATED GFR Routine 06/27/2018 8:31 AM DELIVERY ANALYST LIPASE LEVEL Routine 06/27/2018 8:31 AM DELIVERY ANALYST PROTHROMBIN TIME WITH INR Routine 06/27/2018 8:31 AM DELIVERY ANALYST HC COMPLETE BLD COUNT Routine 06/27/2018 W/AUTO DIFF 8:31 AM DELIVERY ANALYST XR ABDOMEN 1 VW PORTABLE STAT 06/27/2018 7:01 AM DELIVERY ANALYST POC GLUCOSE Routine 06/26/2018 3:32 PM DELIVERY ANALYST MAGNESIUM LEVEL Routine 06/26/2018 2:39 PM DELIVERY ANALYST ESTIMATED GFR STAT 06/26/2018 2:39 PM DELIVERY ANALYST LIPASE LEVEL STAT 06/26/2018 2:39 PM DELIVERY ANALYST BASIC METABOLIC PANEL STAT 06/26/2018 2:39 PM DELIVERY ANALYST POC GLUCOSE Routine 06/26/2018 11:02 AM DELIVERY ANALYST LACTIC ACID LEVEL Timed 06/26/2018 10:14 AM DELIVERY ANALYST LACTIC ACID LEVEL, SEPSIS Timed 06/26/2018 - NOW AND REPEAT 2X EVERY 5:18 AM DELIVERY ANALYST 3 HOURS LACTIC ACID LEVEL, SEPSIS Timed 06/26/2018 - NOW AND REPEAT 2X EVERY 3:06 AM DELIVERY ANALYST 3 HOURS ESTIMATED GFR STAT 06/25/2018 11:30 PM DELIVERY ANALYST LIPASE LEVEL STAT 06/25/2018 11:30 PM DELIVERY ANALYST LACTIC ACID LEVEL, SEPSIS STAT 06/25/2018 - NOW AND REPEAT 2X EVERY 11:30 PM DELIVERY ANALYST 3 HOURS HEPATIC FUNCTION PANEL STAT 06/25/2018 11:30 PM DELIVERY ANALYST BASIC METABOLIC PANEL STAT 06/25/2018 11:30 PM DELIVERY ANALYST HC COMPLETE BLD COUNT STAT 06/25/2018 W/AUTO DIFF 11:30 PM DELIVERY ANALYST ESTIMATED GFR Timed 06/17/2018 2:24 PM DELIVERY ANALYST BASIC METABOLIC PANEL Timed 06/17/2018 2:24 PM DELIVERY ANALYST HC COMPLETE BLD COUNT Timed 06/17/2018 W/AUTO DIFF 2:24 PM DELIVERY ANALYST BLOOD CULTURE, AEROBIC & Routine 06/17/2018 ANAEROBIC 5:52 AM DELIVERY ANALYST BLOOD CULTURE, AEROBIC & Routine 06/17/2018 ANAEROBIC 5:[address] ABDOMEN PELVIS W STAT 06/17/2018 CONTRAST 5:17 AM DELIVERY ANALYST GRAM STAIN STAT 06/17/2018 4:09 AM DELIVERY ANALYST URINE CULTURE STAT 06/17/2018 4:09 AM DELIVERY ANALYST ESTIMATED GFR STAT 06/17/2018 3:36 AM DELIVERY ANALYST LIPASE LEVEL STAT 06/17/2018 3:36 AM DELIVERY ANALYST HC COMPLETE BLD COUNT STAT 06/17/2018 W/AUTO DIFF 3:36 AM DELIVERY ANALYST COMPREHENSIVE METABOLIC STAT 06/17/2018 PANEL 3:36 AM DELIVERY ANALYST XR ABDOMEN 2 VW AP W STAT 06/17/2018 UPRIGHT AND/OR DECUBITUS 3:30 AM DELIVERY ANALYST URINALYSIS SCREEN AND STAT 06/17/2018 MICROSCOPY, WITH REFLEX 3:23 AM DELIVERY ANALYST TO CULTURE GRAM STAIN STAT 06/09/2018 9:53 PM DELIVERY ANALYST URINE CULTURE STAT 06/09/2018 9:53 PM DELIVERY ANALYST ESTIMATED GFR STAT 06/09/2018 9:45 PM DELIVERY ANALYST LIPASE LEVEL STAT 06/09/2018 9:45 PM DELIVERY ANALYST COMPREHENSIVE METABOLIC STAT 06/09/2018 PANEL 9:45 PM DELIVERY ANALYST HC COMPLETE BLD COUNT STAT 06/09/2018 W/AUTO DIFF 9:45 PM DELIVERY ANALYST XR ABDOMEN ACUTE INC STAT 06/09/2018 CHEST 9:42 PM DELIVERY ANALYST URINALYSIS SCREEN AND STAT 06/09/2018 MICROSCOPY, WITH REFLEX 9:06 PM DELIVERY ANALYST TO CULTURE CT ABDOMEN PELVIS W STAT 06/06/2018 CONTRAST 8:53 PM DELIVERY ANALYST GRAM STAIN STAT 06/06/2018 8:18 PM DELIVERY ANALYST URINE CULTURE STAT 06/06/2018 8:18 PM DELIVERY ANALYST OCCULT BLOOD, STOOL Routine 06/06/2018 7:52 PM DELIVERY ANALYST ESTIMATED GFR STAT 06/06/2018 7:50 PM DELIVERY ANALYST LIPASE LEVEL STAT 06/06/2018 7:50 PM DELIVERY ANALYST HEPATIC FUNCTION PANEL STAT 06/06/2018 7:50 PM DELIVERY ANALYST BASIC METABOLIC PANEL STAT 06/06/2018 7:50 PM DELIVERY ANALYST HC COMPLETE BLD COUNT STAT 06/06/2018 W/AUTO DIFF 7:50 PM DELIVERY ANALYST URINALYSIS SCREEN AND STAT 06/06/2018 MICROSCOPY, WITH REFLEX 7:36 PM DELIVERY ANALYST TO CULTURE GRAM STAIN STAT 05/25/2018 1:15 AM DELIVERY ANALYST URINE CULTURE STAT 05/25/2018 1:15 AM DELIVERY ANALYST URINALYSIS SCREEN AND STAT 05/25/2018 MICROSCOPY, WITH REFLEX 12:58 AM DELIVERY ANALYST TO CULTURE XR ABDOMEN ACUTE INC STAT 05/24/2018 CHEST 9:13 PM DELIVERY ANALYST ESTIMATED GFR STAT 05/24/2018 7:20 PM DELIVERY ANALYST LIPASE LEVEL STAT 05/24/2018 7:20 PM DELIVERY ANALYST COMPREHENSIVE METABOLIC STAT 05/24/2018 PANEL 7:20 PM DELIVERY ANALYST HC COMPLETE BLD COUNT STAT 05/24/2018 W/AUTO DIFF 7:20 PM DELIVERY ANALYST URINALYSIS SCREEN AND STAT 04/30/2018 MICROSCOPY, WITH REFLEX 8:52 PM DELIVERY ANALYST TO CULTURE GRAM STAIN STAT 04/30/2018 8:52 PM DELIVERY ANALYST URINE CULTURE STAT 04/30/2018 8:[address] ABDOMEN PELVIS W STAT 04/30/2018 CONTRAST 8:47 PM DELIVERY ANALYST ESTIMATED GFR STAT 04/30/2018 4:47 PM DELIVERY ANALYST LIPASE LEVEL STAT 04/30/2018 4:47 PM DELIVERY ANALYST COMPREHENSIVE METABOLIC STAT 04/30/2018 PANEL 4:47 PM DELIVERY ANALYST HC COMPLETE BLD COUNT STAT 04/30/2018 W/AUTO DIFF 4:47 PM DELIVERY ANALYST XR ABDOMEN ACUTE INC STAT 04/27/2018 CHEST 7:28 AM DELIVERY ANALYST ESTIMATED GFR STAT 04/27/2018 7:02 AM DELIVERY ANALYST BASIC METABOLIC PANEL STAT 04/27/2018 7:02 AM DELIVERY ANALYST HC COMPLETE BLD COUNT STAT 04/27/2018 W/AUTO DIFF 7:02 AM DELIVERY ANALYST LACTIC ACID LEVEL, SEPSIS Timed 04/25/2018 - NOW AND REPEAT 2X EVERY 10:17 AM DELIVERY ANALYST [address] ABDOMEN PELVIS W STAT 04/25/2018 CONTRAST 9:50 AM DELIVERY ANALYST ESTIMATED GFR STAT 04/25/2018 7:26 AM DELIVERY ANALYST LACTIC ACID LEVEL, SEPSIS STAT 04/25/2018 - NOW AND REPEAT 2X EVERY 7:26 AM DELIVERY ANALYST 3 HOURS LIPASE LEVEL STAT 04/25/2018 7:26 AM DELIVERY ANALYST HEPATIC FUNCTION PANEL STAT 04/25/2018 7:26 AM DELIVERY ANALYST BASIC METABOLIC PANEL STAT 04/25/2018 7:26 AM DELIVERY ANALYST HC COMPLETE BLD COUNT STAT 04/25/2018 W/AUTO DIFF 7:[address] ABDOMEN PELVIS W STAT 04/19/2018 CONTRAST 5:[address] HEAD WO CONTRAST STAT 04/19/2018 5:35 AM DELIVERY ANALYST URINALYSIS SCREEN AND Routine 04/19/2018 MICROSCOPY, WITH REFLEX 4:40 AM DELIVERY ANALYST TO CULTURE URINE CULTURE Routine 04/19/2018 4:40 AM DELIVERY ANALYST ESTIMATED GFR STAT 04/19/2018 4:18 AM DELIVERY ANALYST B NATRIURETIC PEPTIDE STAT 04/19/2018 4:18 AM DELIVERY ANALYST TROPONIN Timed 04/19/2018 4:18 AM DELIVERY ANALYST LACTIC ACID LEVEL, SEPSIS STAT 04/19/2018 - NOW AND REPEAT 2X EVERY 4:18 AM DELIVERY ANALYST 3 HOURS LIPASE LEVEL STAT 04/19/2018 4:18 AM DELIVERY ANALYST COMPREHENSIVE METABOLIC STAT 04/19/2018 PANEL 4:18 AM DELIVERY ANALYST HC COMPLETE BLD COUNT STAT 04/19/2018 W/AUTO DIFF 4:18 AM DELIVERY ANALYST ECG 12-LEAD STAT 04/19/2018 4:[address] ABDOMEN PELVIS WO STAT 04/12/2018 CONTRAST 9:46 AM DELIVERY ANALYST ESTIMATED GFR STAT 04/12/2018 9:44 AM DELIVERY ANALYST LIPASE LEVEL STAT 04/12/2018 9:44 AM DELIVERY ANALYST COMPREHENSIVE METABOLIC STAT 04/12/2018 PANEL 9:44 AM DELIVERY ANALYST HC COMPLETE BLD COUNT STAT 04/12/2018 W/AUTO DIFF 9:[address] ABDOMEN PELVIS WO STAT 04/09/2018 CONTRAST 4:17 AM DELIVERY ANALYST ESTIMATED GFR STAT 04/09/2018 2:32 AM DELIVERY ANALYST LIPASE LEVEL STAT 04/09/2018 2:32 AM DELIVERY ANALYST COMPREHENSIVE METABOLIC STAT 04/09/2018 PANEL 2:32 AM DELIVERY ANALYST HC COMPLETE BLD COUNT STAT 04/09/2018 W/AUTO DIFF 2:32 AM DELIVERY ANALYST URINALYSIS SCREEN AND STAT 04/09/2018 MICROSCOPY, WITH REFLEX 1:57 AM DELIVERY ANALYST TO CULTURE URINE CULTURE STAT 04/09/2018 1:57 AM DELIVERY ANALYST URINALYSIS SCREEN AND Routine 04/05/2018 MICROSCOPY, WITH REFLEX 9:29 PM DELIVERY ANALYST TO CULTURE URINE CULTURE Routine 04/05/2018 9:[address] ABDOMEN PELVIS WO STAT 04/05/2018 CONTRAST 7:44 PM DELIVERY ANALYST ESTIMATED GFR STAT 04/05/2018 6:36 PM DELIVERY ANALYST LIPASE LEVEL STAT 04/05/2018 6:36 PM DELIVERY ANALYST HEPATIC FUNCTION PANEL STAT 04/05/2018 6:36 PM DELIVERY ANALYST BASIC METABOLIC PANEL STAT 04/05/2018 6:36 PM DELIVERY ANALYST HC COMPLETE BLD COUNT STAT 04/05/2018 W/AUTO DIFF 6:[address] ABDOMEN PELVIS W STAT 03/21/2018 CONTRAST 7:28 AM DELIVERY ANALYST URINALYSIS SCREEN AND STAT 03/21/2018 MICROSCOPY, WITH REFLEX 5:39 AM DELIVERY ANALYST TO CULTURE URINE CULTURE STAT 03/21/2018 5:39 AM DELIVERY ANALYST ESTIMATED GFR STAT 03/21/2018 5:25 AM DELIVERY ANALYST LACTIC ACID LEVEL, SEPSIS STAT 03/21/2018 - NOW AND REPEAT 2X EVERY 5:25 AM DELIVERY ANALYST 3 HOURS LIPASE LEVEL STAT 03/21/2018 5:25 AM DELIVERY ANALYST COMPREHENSIVE METABOLIC STAT 03/21/2018 PANEL 5:25 AM DELIVERY ANALYST PARTIAL THROMBOPLASTIN STAT 03/21/2018 TIME (PTT) 5:25 AM DELIVERY ANALYST PROTHROMBIN TIME WITH INR STAT 03/21/2018 5:25 AM DELIVERY ANALYST HC COMPLETE BLD COUNT STAT 03/21/2018 W/AUTO DIFF 5:25 AM DELIVERY ANALYST ESTIMATED GFR Routine 03/04/2018 6:40 AM CDT COMPREHENSIVE METABOLIC Routine 03/04/2018 PANEL 6:40 AM CDT HC COMPLETE BLD COUNT Routine 03/04/2018 W/AUTO DIFF 6:[address] ANGIOGRAM ABDOMEN STAT 03/02/2018 PELVIS W AND OR WO 9:48 PM CDT CONTRAST LACTIC ACID LEVEL, SEPSIS Timed 03/02/2018 - NOW AND REPEAT 2X EVERY 8:45 PM CDT 3 HOURS BLOOD CULTURE, AEROBIC & Routine 03/02/2018 ANAEROBIC 8:45 PM CDT ESTIMATED GFR STAT 03/02/2018 7:50 PM CDT LACTIC ACID LEVEL, SEPSIS STAT 03/02/2018 - NOW AND REPEAT 2X EVERY 7:50 PM CDT 3 HOURS LIPASE LEVEL STAT 03/02/2018 7:50 PM CDT COMPREHENSIVE METABOLIC STAT 03/02/2018 PANEL 7:50 PM CDT HC COMPLETE BLD COUNT STAT 03/02/2018 W/AUTO DIFF 7:50 PM CDT BLOOD CULTURE, AEROBIC & Routine 03/02/2018 ANAEROBIC 7:50 PM CDT URINALYSIS SCREEN AND STAT 03/02/2018 MICROSCOPY, WITH REFLEX 6:25 PM CDT TO CULTURE URINE CULTURE STAT 03/02/2018 6:[address] ABDOMEN PELVIS W STAT 02/24/2018 CONTRAST 12:16 AM CDT LIPASE LEVEL STAT 02/23/2018 9:40 PM CDT ESTIMATED GFR Routine 02/23/2018 9:40 PM CDT COMPREHENSIVE METABOLIC Routine 02/23/2018 PANEL 9:40 PM CDT HC COMPLETE BLD COUNT Routine 02/23/2018 W/AUTO DIFF 9:[address] ABDOMEN PELVIS WO STAT 02/13/2018 CONTRAST 10:10 PM CDT ESTIMATED GFR STAT 02/13/2018 9:34 PM CDT LIPASE LEVEL STAT 02/13/2018 9:34 PM CDT COMPREHENSIVE METABOLIC STAT 02/13/2018 PANEL 9:34 PM CDT HC COMPLETE BLD COUNT STAT 02/13/2018 W/AUTO DIFF 9:34 PM CDT XR ABDOMEN 2 VW AP W STAT 02/13/2018 UPRIGHT AND/OR DECUBITUS 8:09 PM CDT ESTIMATED GFR Routine 01/30/2018 5:11 AM CDT HC COMPLETE BLD COUNT Routine 01/30/2018 W/AUTO DIFF 5:11 AM CDT HEMOGLOBIN A1C Routine 01/30/2018 5:11 AM CDT LIPID PANEL Routine 01/30/2018 5:11 AM CDT BASIC METABOLIC PANEL Routine 01/30/2018 5:11 AM CDT LACTIC ACID LEVEL Timed 01/29/2018 6:56 PM CDT CONSULT TO SEPSIS Routine 01/29/2018 Sepsis, due to RESPONSE TEAM 2:56 PM CDT unspecified organism LACTIC ACID LEVEL, SEPSIS Timed 01/29/2018 - NOW AND REPEAT 2X EVERY 1:48 PM CDT 3 HOURS LACTIC ACID LEVEL, SEPSIS Timed 01/29/2018 - NOW AND REPEAT 2X EVERY 10:30 AM CDT [address] ABDOMEN PELVIS W STAT 01/29/2018 CONTRAST 9:42 AM CDT OCCULT BLOOD, STOOL Routine 01/29/2018 8:33 AM CDT LACTIC ACID LEVEL, SEPSIS Timed 01/29/2018 - NOW AND REPEAT 2X EVERY 7:57 AM CDT 3 HOURS BLOOD CULTURE, AEROBIC & Routine 01/29/2018 ANAEROBIC 7:57 AM CDT BLOOD CULTURE, AEROBIC & Routine 01/29/2018 ANAEROBIC 7:50 AM CDT URINALYSIS SCREEN AND STAT 01/29/2018 MICROSCOPY, WITH REFLEX 6:41 AM CDT TO CULTURE GRAM STAIN STAT 01/29/2018 6:41 AM CDT URINE CULTURE STAT 01/29/2018 6:41 AM CDT ESTIMATED GFR STAT 01/29/2018 6:29 AM CDT LIPASE LEVEL STAT 01/29/2018 6:29 AM CDT COMPREHENSIVE METABOLIC STAT 01/29/2018 PANEL 6:29 AM CDT PROTHROMBIN TIME WITH INR STAT 01/29/2018 6:29 AM CDT HC COMPLETE BLD COUNT STAT 01/29/2018 W/AUTO DIFF 6:29 AM CDT ECG 12-LEAD STAT 01/29/2018 6:19 AM CDT ECG ED PRELIMINARY Routine 01/29/2018 INTERPRETATION 6:00 AM CDT [place] CRITICAL CARE, E/M Routine 01/29/2018 30-74 MINUTES 6:[address] ABDOMEN PELVIS WO STAT 01/26/2018 CONTRAST 1:22 AM CDT CHG US, ABDOMEN LIMITED Routine 01/26/2018 12:21 AM CDT ESTIMATED GFR STAT 01/25/2018 8:14 PM CDT LIPASE LEVEL STAT 01/25/2018 8:14 PM CDT COMPREHENSIVE METABOLIC STAT 01/25/2018 PANEL 8:14 PM CDT HC COMPLETE BLD COUNT STAT 01/25/2018 W/AUTO DIFF 8:14 PM CDT URINALYSIS SCREEN AND STAT 01/07/2018 MICROSCOPY, WITH REFLEX 11:46 AM CDT TO CULTURE URINE CULTURE STAT 01/07/2018 11:46 AM CDT XR ABDOMEN 1 VW STAT 01/07/2018 10:49 AM CDT ZZESTIMATED GFR STAT 01/07/2018 10:23 AM CDT HC COMPLETE BLD COUNT STAT 01/07/2018 W/AUTO DIFF 10:23 AM CDT MAGNESIUM LEVEL STAT 01/07/2018 10:23 AM CDT COMPREHENSIVE METABOLIC STAT 01/07/2018 PANEL 10:23 AM CDT URINALYSIS SCREEN AND Routine 01/04/2018 MICROSCOPY, WITH REFLEX 12:43 AM CDT TO CULTURE GRAM STAIN Routine 01/04/2018 12:43 AM CDT URINE CULTURE Routine 01/04/2018 12:43 AM CDT XR ABDOMEN 1 VW STAT 01/04/2018 12:[address] ABDOMEN PELVIS W STAT 12/28/2017 CONTRAST 8:01 AM CDT URINALYSIS SCREEN AND Routine 12/28/2017 MICROSCOPY, WITH REFLEX 7:10 AM CDT TO CULTURE GRAM STAIN Routine 12/28/2017 7:10 AM CDT URINE CULTURE Routine 12/28/2017 7:10 AM CDT ZZESTIMATED GFR STAT 12/28/2017 6:25 AM CDT LIPASE LEVEL STAT 12/28/2017 6:25 AM CDT HEPATIC FUNCTION PANEL STAT 12/28/2017 6:25 AM CDT BASIC METABOLIC PANEL STAT 12/28/2017 6:25 AM CDT HC COMPLETE BLD COUNT STAT 12/28/2017 W/AUTO DIFF 6:25 AM CDT URINALYSIS SCREEN AND STAT 12/24/2017 MICROSCOPY, WITH REFLEX 12:24 AM CDT TO CULTURE GRAM STAIN STAT 12/24/2017 12:24 AM CDT URINE CULTURE STAT 12/24/2017 12:24 AM CDT XR ABDOMEN ACUTE INC STAT 12/23/2017 CHEST 11:37 PM CDT ZZESTIMATED GFR STAT 12/23/2017 11:34 PM CDT LIPASE LEVEL STAT 12/23/2017 11:34 PM CDT COMPREHENSIVE METABOLIC STAT 12/23/2017 PANEL 11:34 PM CDT HC COMPLETE BLD COUNT STAT 12/23/2017 W/AUTO DIFF 11:[address] ABDOMEN PELVIS W STAT 12/20/2017 CONTRAST 2:44 AM CDT ZZESTIMATED GFR STAT 12/20/2017 12:55 AM CDT LIPASE LEVEL STAT 12/20/2017 12:55 AM CDT COMPREHENSIVE METABOLIC STAT 12/20/2017 PANEL 12:55 AM CDT HC COMPLETE BLD COUNT STAT 12/20/2017 W/AUTO DIFF 12:55 AM CDT URINALYSIS SCREEN AND STAT 12/20/2017 MICROSCOPY, WITH REFLEX 12:30 AM CDT TO CULTURE URINE CULTURE STAT 12/20/2017 12:30 AM CDT ZZESTIMATED GFR Routine 12/13/2017 4:35 AM CDT BASIC METABOLIC PANEL Routine 12/13/2017 4:35 AM CDT HC COMPLETE BLD COUNT Routine 12/13/2017 W/AUTO DIFF 4:35 AM CDT ZZESTIMATED GFR STAT 12/12/2017 12:50 PM CDT COMPREHENSIVE METABOLIC STAT 12/12/2017 PANEL 12:50 PM CDT HC COMPLETE BLD COUNT STAT 12/12/2017 W/AUTO DIFF 12:50 PM CDT URINALYSIS SCREEN AND STAT 12/12/2017 MICROSCOPY, WITH REFLEX 12:31 PM CDT TO CULTURE GRAM STAIN STAT 12/12/2017 12:31 PM CDT URINE CULTURE STAT 12/12/2017 12:[address] ABDOMEN PELVIS W STAT 12/11/2017 CONTRAST 3:[address] HEAD WO CONTRAST STAT 12/11/2017 2:41 PM CDT URINALYSIS SCREEN AND Routine 12/11/2017 MICROSCOPY, WITH REFLEX 12:51 PM CDT TO CULTURE GRAM STAIN Routine 12/11/2017 12:45 PM CDT URINE CULTURE Routine 12/11/2017 12:45 PM CDT ZZESTIMATED GFR STAT 12/11/2017 12:05 PM CDT HC COMPLETE BLD COUNT STAT 12/11/2017 W/AUTO DIFF 12:05 PM CDT COMPREHENSIVE METABOLIC STAT 12/11/2017 PANEL 12:05 PM CDT POC GLUCOSE Routine 12/11/2017 11:20 AM CDT ZZESTIMATED GFR Routine 12/07/2017 5:12 AM CDT BASIC METABOLIC PANEL Routine 12/07/2017 5:12 AM CDT HC COMPLETE BLD COUNT Routine 12/07/2017 W/AUTO DIFF 5:12 AM CDT HC COMPLETE BLD COUNT Routine 12/06/2017 W/AUTO DIFF 7:17 AM CDT SURGICAL PATHOLOGY Routine 12/03/2017 REQUEST 2:14 PM CDT WI AN ELECTIVE Routine 12/03/2017 SUPRAGLOTTIC AIRWAY 12:50 PM CDT Procedure Note - Jodie Herrera, MACHINE PRECISION ETCHER - 12/03/2017 12:50 PM CDT Airway Date/Time: 12/03/2017 12:43 PM Performed by: JODIE HERRERA Authorized by: MIR HENRY Location: OR Urgency: Elective Difficult Airway: No Resident/C RNA/AA: JODIE HERRERA Preoxygena bharat with 100% O2: Yes C-spine Precaution s Maintained Throughout : Yes Final Airway Type: Supraglott ic airway Final LMA: Unique LMA Size: 4 Number of Attempts at Approach: 1 PROSTATE SPECIFIC ANTIGEN STAT 12/02/2017 6:37 AM CDT ZZESTIMATED GFR Routine 12/02/2017 6:37 AM CDT BASIC METABOLIC PANEL Routine 12/02/2017 6:37 AM CDT HC COMPLETE BLD COUNT Routine 12/02/2017 W/AUTO DIFF 6:37 AM CDT MRI ABDOMEN W WO CONTRAST STAT 12/01/2017 8:46 PM CDT HC COMPLETE BLD COUNT STAT 12/01/2017 W/AUTO DIFF 2:00 PM CDT BLOOD CULTURE, AEROBIC & Routine 12/01/2017 ANAEROBIC 5:29 AM CDT LACTIC ACID LEVEL, SEPSIS Timed 12/01/2017 - NOW AND REPEAT 2X EVERY 5:20 AM CDT 3 HOURS BLOOD CULTURE, AEROBIC & Routine 12/01/2017 ANAEROBIC 5:20 AM CDT URINALYSIS SCREEN AND Routine 12/01/2017 MICROSCOPY, WITH REFLEX 5:10 [address]T TO CULTURE [address] ABDOMEN PELVIS W STAT 12/01/2017 CONTRAST 4:03 AM CDT WI CRITICAL CARE, E/M Routine 12/01/2017 30-74 MINUTES 2:55 AM CDT ZZESTIMATED GFR STAT 12/01/2017 2:08 AM CDT LACTIC ACID LEVEL, SEPSIS STAT 12/01/2017 - NOW AND REPEAT 2X EVERY 2:08 AM CDT 3 HOURS LIPASE LEVEL STAT 12/01/2017 2:08 AM CDT COMPREHENSIVE METABOLIC STAT 12/01/2017 PANEL 2:08 AM CDT HC COMPLETE BLD COUNT STAT 12/01/2017 W/AUTO DIFF 2:08 AM CDT URINALYSIS SCREEN AND STAT 11/25/2017 MICROSCOPY, WITH REFLEX 5:38 AM CDT TO CULTURE GRAM STAIN STAT 11/25/2017 5:38 AM CDT URINE CULTURE STAT 11/25/2017 5:[address] ABDOMEN PELVIS W STAT 11/25/2017 CONTRAST 5:13 AM CDT ZZESTIMATED GFR STAT 11/25/2017 3:44 AM CDT COMPREHENSIVE METABOLIC STAT 11/25/2017 PANEL 3:44 AM CDT HC COMPLETE BLD COUNT STAT 11/25/2017 W/AUTO DIFF 3:44 AM CDT URINALYSIS SCREEN AND Routine 11/21/2017 MICROSCOPY, WITH REFLEX 6:20 AM CDT TO CULTURE URINE CULTURE Routine 11/21/2017 6:[address] ABDOMEN PELVIS WO STAT 11/18/2017 CONTRAST 1:41 AM CDT ZZESTIMATED GFR STAT 11/18/2017 1:40 AM CDT LIPASE LEVEL STAT 11/18/2017 1:40 AM CDT COMPREHENSIVE METABOLIC STAT 11/18/2017 PANEL 1:40 AM CDT HC COMPLETE BLD COUNT STAT 11/18/2017 W/AUTO DIFF 1:40 AM CDT URINALYSIS SCREEN AND STAT 11/18/2017 MICROSCOPY, WITH REFLEX 1:10 AM CDT TO CULTURE ZZESTIMATED GFR STAT 10/13/2017 1:57 PM CDT HC COMPLETE BLD COUNT STAT 10/13/2017 W/AUTO DIFF 1:57 PM CDT BASIC METABOLIC PANEL STAT 10/13/2017 1:[address] ABDOMEN PELVIS WO STAT 10/13/2017 CONTRAST 1:27 PM CDT ECG 12-LEAD STAT 10/13/2017 1:05 PM CDT XR ABDOMEN 1 VW STAT 10/13/2017 12:[address] ABDOMEN PELVIS W STAT 10/09/2017 CONTRAST 5:09 AM CDT URINALYSIS SCREEN AND STAT 10/09/2017 MICROSCOPY, WITH REFLEX 3:05 AM CDT TO CULTURE URINE CULTURE STAT 10/09/2017 3:05 AM CDT ZZESTIMATED GFR STAT 10/09/2017 1:39 AM CDT LIPASE LEVEL STAT 10/09/2017 1:39 AM CDT COMPREHENSIVE METABOLIC STAT 10/09/2017 PANEL 1:39 AM CDT HC COMPLETE BLD COUNT STAT 10/09/2017 W/AUTO DIFF 1:39 AM CDT HC COMPLETE BLD COUNT Routine 10/05/2017 W/AUTO DIFF 4:26 AM CDT XR LUMBAR SPINE 2 OR 3 VW Routine 10/04/2017 3:[address] ABDOMEN PELVIS W STAT 10/04/2017 CONTRAST 6:27 AM CDT URINALYSIS SCREEN AND STAT 10/04/2017 MICROSCOPY, WITH REFLEX 5:43 AM CDT TO CULTURE URINE CULTURE STAT 10/04/2017 5:30 AM CDT ZZESTIMATED GFR STAT 10/04/2017 4:30 AM CDT LIPASE LEVEL STAT 10/04/2017 4:30 AM CDT HEPATIC FUNCTION PANEL STAT 10/04/2017 4:30 AM CDT LACTIC ACID LEVEL, SEPSIS STAT 10/04/2017 - NOW AND REPEAT 2X EVERY 4:30 AM CDT 3 HOURS BASIC METABOLIC PANEL STAT 10/04/2017 4:30 AM CDT HC COMPLETE BLD COUNT STAT 10/04/2017 W/AUTO DIFF 4:30 AM CDT XR ABDOMEN 1 VW PORTABLE STAT 09/29/2017 10:01 AM CDT ZZESTIMATED GFR Routine 09/29/2017 4:48 AM CDT BASIC METABOLIC PANEL Routine 09/29/2017 4:48 AM CDT HC COMPLETE BLD COUNT Routine 09/29/2017 W/AUTO DIFF 4:48 AM CDT SURGICAL PATHOLOGY Routine 09/28/2017 REQUEST 12:57 PM CDT COLONOSCOPY 09/28/2017 Colitis 12:30 PM CDT ZZESTIMATED GFR Routine 09/28/2017 7:19 AM CDT HC COMPLETE BLD COUNT Routine 09/28/2017 W/AUTO DIFF 7:19 AM CDT BASIC METABOLIC PANEL Routine 09/28/2017 7:19 AM CDT ZZESTIMATED GFR Routine 09/27/2017 5:17 AM CDT PHOSPHORUS LEVEL Routine 09/27/2017 5:17 AM CDT MAGNESIUM LEVEL Routine 09/27/2017 5:17 AM CDT HC COMPLETE BLD COUNT Routine 09/27/2017 W/AUTO DIFF 5:17 AM CDT BASIC METABOLIC PANEL Routine 09/27/2017 5:17 AM CDT ZZESTIMATED GFR Routine 09/26/2017 5:13 AM CDT HC COMPLETE BLD COUNT Routine 09/26/2017 W/AUTO DIFF 5:13 AM CDT BASIC METABOLIC PANEL Routine 09/26/2017 5:13 AM CDT BLOOD CULTURE, AEROBIC & Routine 09/25/2017 ANAEROBIC 6:18 AM CDT BLOOD CULTURE, AEROBIC & Routine 09/25/2017 ANAEROBIC 6:[address] ABDOMEN PELVIS W STAT 09/25/2017 CONTRAST 3:47 AM CDT URINALYSIS SCREEN AND STAT 09/25/2017 MICROSCOPY, WITH REFLEX 3:12 AM CDT TO CULTURE URINE CULTURE STAT 09/25/2017 3:10 AM CDT WI CRITICAL CARE, E/M Routine 09/25/2017 30-74 MINUTES 1:23 AM CDT ZZESTIMATED GFR STAT 09/24/2017 10:52 PM CDT LIPASE LEVEL STAT 09/24/2017 10:52 PM CDT COMPREHENSIVE METABOLIC STAT 09/24/2017 PANEL 10:52 PM CDT HC COMPLETE BLD COUNT STAT 09/24/2017 W/AUTO DIFF 10:[address] ABDOMEN PELVIS W STAT 09/17/2017 CONTRAST 2:20 AM CDT URINALYSIS SCREEN AND STAT 09/17/2017 MICROSCOPY, WITH REFLEX 2:00 AM CDT TO CULTURE URINE CULTURE STAT 09/17/2017 2:00 AM CDT MANUAL DIFFERENTIAL STAT 09/17/2017 1:20 AM CDT ZZESTIMATED GFR STAT 09/17/2017 1:20 AM CDT LIPASE LEVEL STAT 09/17/2017 1:20 AM CDT COMPREHENSIVE METABOLIC STAT 09/17/2017 PANEL 1:20 AM CDT CBC WITH PLATELET AND STAT 09/17/2017 DIFFERENTIAL 1:20 AM CDT MANUAL DIFFERENTIAL Routine 09/09/2017 6:21 AM CDT ZZESTIMATED GFR Routine 09/09/2017 6:21 AM CDT BASIC METABOLIC PANEL Routine 09/09/2017 6:21 AM CDT CBC WITH PLATELET AND Routine 09/09/2017 DIFFERENTIAL 6:21 AM CDT FL UGI W AIR HD BA AND Routine 09/08/2017 SMALL BOWEL 2:54 PM CDT LDH Routine 09/08/2017 4:26 AM CDT MANUAL DIFFERENTIAL Timed 09/08/2017 4:26 AM CDT ZZESTIMATED GFR Timed 09/08/2017 4:26 AM CDT BASIC METABOLIC PANEL Timed 09/08/2017 4:26 AM CDT CBC WITH PLATELET AND Timed 09/08/2017 DIFFERENTIAL 4:26 AM CDT POC GLUCOSE Routine 09/07/2017 3:27 PM CDT NM HEPATOBILIARY W PHARM STAT 09/07/2017 1:45 PM CDT ZZESTIMATED GFR Routine 09/07/2017 5:06 AM CDT BASIC METABOLIC PANEL Routine 09/07/2017 5:06 AM CDT HC COMPLETE BLD COUNT Routine 09/07/2017 W/AUTO DIFF 5:[address] ABDOMEN PELVIS WO STAT 09/06/2017 CONTRAST 11:08 PM CDT XR ABDOMEN 1 VW PORTABLE STAT 09/06/2017 8:11 PM CDT XR CHEST 1 VW PORTABLE Routine 09/06/2017 11:33 AM CDT MANUAL DIFFERENTIAL Routine 09/06/2017 6:21 AM CDT ZZESTIMATED GFR Routine 09/06/2017 6:21 AM CDT BASIC METABOLIC PANEL Routine 09/06/2017 6:21 AM CDT CBC WITH PLATELET AND Routine 09/06/2017 DIFFERENTIAL 6:21 AM CDT XR ABDOMEN 1 VW PORTABLE Routine 09/05/2017 5:11 PM CDT VANCOMYCIN LEVEL, TROUGH Timed 09/05/2017 12:20 PM CDT MANUAL DIFFERENTIAL Routine 09/05/2017 6:58 AM CDT ZZESTIMATED GFR Routine 09/05/2017 6:58 AM CDT BASIC METABOLIC PANEL Routine 09/05/2017 6:58 AM CDT CBC WITH PLATELET AND Routine 09/05/2017 DIFFERENTIAL 6:58 AM CDT BLOOD CULTURE, AEROBIC & Routine 09/04/2017 ANAEROBIC 12:30 AM CDT BLOOD CULTURE, AEROBIC & Routine 09/04/2017 ANAEROBIC 12:30 AM CDT after 09/04/2017 Results * Urinalysis screen and microscopy, with reflex to culture (09/02/2018 10:26 AM CDT) Only the most recent of 29 results within the time period is included. Specimen site Catheterized [facility] Color, UA Straw [facility] Appearance, UA Clear [facility] Specific gravity, UA 1.005 1.001 - 1.035 [facility] pH, UA 7.0 5.0 - 8.5 [facility] Protein, UA Negative Negative [facility] Glucose, UA Negative Negative [facility] Ketones, UA Negative Negative [facility] Bilirubin, UA Negative Negative [facility] Blood, UA Negative Negative [facility] Nitrite, UA Negative Negative [facility] Urobilinogen, UA Negative <2.0 [facility] Leukocyte esterase, UA Negative Negative [facility] Epithelial cells, UA Few /HPF [facility] WBC, UA 1 0 - 1 /HPF [facility] RBC, UA 1 0 - 5 /HPF [facility] Bacteria, UA None seen None seen [facility] Yeast, UA None seen [facility] Yeast with pseudohyphae, None seen [facility] Specimen Urine Performing Organization Address City/State/Zipcode Phone Number [facility] [place] [address] PATHOLOGY AND GENOMIC MEDICINE [place] [id number] [place], [place] [id number] [place] [address] * Urine culture (09/02/2018 10:26 AM CDT) Only the most recent of 26 results within the time period is included. Urine culture SEE COMMENTComment: [facility] Bacteriuria screen negative. [facility] Specimen Urine Performing Organization Address City/State/Zipcode Phone Number [facility] [address] [place] [phone] PATHOLOGY AND GENOMIC MEDICINE [facility] [address] * XR Abdomen 2 Vw Ap W Upright And/Or Decubitus (09/02/2018 10:06 AM CDT) Only the most recent of 3 results within the time period is included. Narrative Performed At EXAMINATION:XR ABDOMEN 2 VW AP W UPRIGHT AND OR DECUBITUS [facility] CLINICAL HISTORY:constipation COMPARISON:KUB from 06/27/2018 IMPRESSION: No dilated gas filled loops of large or small bowel are noted. No intraperitoneal free air or free fluid. Nonspecific gas-filled loops of small bowel are seen to overlie the left-sided the abdomen which are not particularly dilated. A minimal amount of stool is seen within the colon. Degenerative changes are seen within the lower lumbar spine. The lung bases are clear. [facility]-[id number] Procedure Note Hm Interface, Radiology Results Incoming - 09/02/2018 10:14 AM CDT EXAMINATION: XR ABDOMEN 2 VW AP W UPRIGHT AND OR DECUBITUS CLINICAL HISTORY: constipation COMPARISON: KUB from 06/27/2018 IMPRESSION: No dilated gas filled loops of large or small bowel are noted. No intraperitoneal free air or free fluid. Nonspecific gas-filled loops of small bowel are seen to overlie the left-sided the abdomen which are not particularly dilated. A minimal amount of stool is seen within the colon. Degenerative changes are seen within the lower lumbar spine. The lung bases are clear. [facility]-[id number] Performing Organization Address City/State/Zipcode Phone Number [facility] [address] [place] [address] * Gram stain (07/18/2018 4:06 AM CDT) Only the most recent of 13 results within the time period is included. Gram stain result No WBC's or organisms seen. [facility] Comment: [facility] Specimen Information Specimen Source: Urine Specimen Site: Clean catch Specimen Urine Performing Organization Address City/State/Zipcode Phone Number [facility] [address] [place] [address] PATHOLOGY AND GENOMIC MEDICINE [facility] [address] * Estimated GFR (07/18/2018 3:35 AM CDT) Only the most recent of 24 results within the time period is included. Estimated GFR >=90 mL/min/1.73 m2 [facility] Comment: [facility] CatergoryUnitsInte rpretation G1 >=90 Normal or high G2 60-89Mildly decreased L0t59-16 Mildly to moderately decreased U3b09-93 Moderately to severely decreased G4 15-29Severely decreased G5 <15Kidney failure The eGFR was calculated using the Chronic Kidney Disease Epidemiology Collaboration (CKD-EPI) equation. Interpretation is based on recommendations of the National Kidney Foundation-Kidney Disease Outcomes Quality Initiative (NKF-KDOQI) published in 2014. Specimen Plasma specimen Performing Organization Address City/State/Zipcode Phone Number [facility] [address] [place] [phone] PATHOLOGY AND GENOMIC MEDICINE [facility] [address] * CBC with platelet and differential (07/18/2018 3:35 AM CDT) Only the most recent of 52 results within the time period is included. WBC 9.4 4.2 - 11.0 k/uL [facility] RBC 4.41 4.04 - 5.86 m/uL [facility] HGB 12.1 (L) 13.0 - 17.3 g/dL [facility] HCT 36.5 34.0 - 45.0 % [facility] MCV 82.8 80.0 - 98.0 fL [facility] MCH 27.4 27.0 - 34.0 pg [facility] MCHC 33.2 31.5 - 36.5 g/dL [facility] RDW - SD 55.8 (H) 37.0 - 51.0 fL [facility] MPV 10.4 7.4 - 10.4 fL [facility] Platelet count 265 150 - 400 k/uL [facility] Nucleated RBC 0.00 /100 WBC [facility] Neutrophils 86.7 (H) 36.0 - 66.0 % [facility] Lymphocytes 6.1 (L) 24.0 - 44.0 % [facility] Monocytes 4.8 0.0 - 6.0 % [facility] Eosinophils 0.1 0.0 - 6.0 % [facility] Basophils 2.0 (H) 0.0 - 1.2 % [facility] Immature granulocytes 0.3 0.0 - 1.0 % [facility] Specimen Blood Performing Organization Address [facility] [place] [address] PATHOLOGY AND [facility] MEDICINE [address] * Lipase level (07/18/2018 3:35 AM CDT) Only the most recent of 29 results within the time period is included. Lipase 15 13 - 60 U/L [facility] Specimen Plasma specimen Performing Organization Address [facility] [place] [address] PATHOLOGY AND [facility]IC[facility] [address] * Hepatic function panel (07/18/2018 3:35 AM CDT) Only the most recent of 7 results within the time period is included. Albumin 4.9 3.5 - 5.0 g/dL [facility] Total bilirubin 1.0 0.2 - 1.2 mg/dL [facility] Bilirubin direct <0.2 0.0 - 0.4 mg/dL [facility] Alkaline phosphatase 58 0 - 129 U/L [facility] Protein 8.3 6.3 - 8.3 g/dL [facility] ALT 28 5 - 50 U/L [facility] AST 29 10 - 50 U/L [facility] Specimen Plasma specimen Performing Organization Address City/[facility] Phone Number [facility] [address] [place] [address] PATHOLOGY AND [facility] MEDICINE [place] [phone] [facility] [address] * Basic metabolic panel (07/18/2018 3:35 AM CDT) Only the most recent of 25 results within the time period is included. Sodium 133 (L) 135 - 150 mEq/L [facility] Potassium 3.9 3.5 - 5.0 mEq/L [facility] Chloride 94 (L) 98 - 112 mEq/L [facility] CO2 24 24 - 31 mmol/L [facility] Anion gap 15@ANIO 7 - 15 mEq/L [facility] BUN 4 (L) 7 - 18 mg/dL [facility] Creatinine 0.70 0.70 - 1.20 mg/dL [facility] Glucose 108 (H) 65 - 100 mg/dL [facility] Calcium 9.1 8.3 - 10.2 mg/dL [facility] Specimen Plasma specimen Performing Organization Address City/[facility] Phone Number [facility] [address] [place] [phone] PATHOLOGY AND GENOMIC MEDICINE [address] * Prothrombin time with INR (06/27/2018 8:31 AM DELIVERY ANALYST) Only the most recent of 3 results within the time period is included. Prothrombin time 14.3 11.5 - 14.5 sec [facility] INR 1.14 [facility] Comment: [facility] For patients on anticoagulant therapy, reference ranges below: Indication: INR Value Treatment of Venous Thrombosis, 2.0-3.0 pulmonary emboli, or prophylaxis of a venous thrombosis, or systemic emboli. High dose, high risk patients 3.0-4.5 with mechanical valves. NOTE:INR values over 3.0 are sometimes associated with gastrointestinal hemorrhage, especially values over 4.0. Specimen Blood Performing Organization Address City/State/Zipcode Phone Number [facility] [address] [place] [address] PATHOLOGY AND GENOMIC MEDICINE [facility] [address] * XR Abdomen 1 Vw Portable (06/27/2018 7:01 AM DELIVERY ANALYST) Only the most recent of 4 results within the time period is included. Narrative Performed At EXAMINATION:XR ABDOMEN 1 VW PORTABLE [facility] CLINICAL HISTORY:constipation COMPARISON:June 17, 2018 FINDINGS: Scattered air throughout colon to the level of the rectum. No obstruction or gross free air evident. No abnormal calcifications. Mild changes in the lumbar spine and hips Lung bases clear IMPRESSION: Nonobstructive bowel gas pattern. Mild degenerative changes lumbar spine and hips [id number] Procedure Note Hm Interface, Radiology Results Incoming - 06/27/2018 7:11 AM DELIVERY ANALYST EXAMINATION: XR ABDOMEN 1 VW PORTABLE CLINICAL HISTORY: constipation COMPARISON: June 17, 2018 FINDINGS: Scattered air throughout colon to the level of the rectum. No obstruction or gross free air evident. No abnormal calcifications. Mild changes in the lumbar spine and hips Lung bases clear IMPRESSION: Nonobstructive bowel gas pattern. Mild degenerative changes lumbar spine and hips [id number] Performing Organization Address City/[facility]/Zipcode Phone Number [facility] [address] [place] [address] * POC glucose (06/26/2018 3:32 PM DELIVERY ANALYST) Only the most recent of 4 results within the time period is included. POC glucose 101 (H) 65 - 100 mg/dL [facility] Comment: [facility] Meter ID: [id number] [employer]cutter [employer]led Glass: Shivani Frank Performing Organization Address City/State/Zipcode Phone Number [facility] [address] [place] [address] PATHOLOGY AND GENOMIC MEDICINE [facility] [address] * Magnesium level (06/26/2018 2:39 PM DELIVERY ANALYST) Only the most recent of 3 results within the time period is included. Magnesium 1.80 1.60 - 2.60 mg/dL [facility] Specimen Plasma specimen Performing Organization Address City/[facility]/Zipcode Phone Number [facility] [address] [place] [phone] PATHOLOGY AND GENOMIC MEDICINE [facility] [address] * Lactic acid level (06/26/2018 10:14 AM DELIVERY ANALYST) Only the most recent of 2 results within the time period is included. Lactic acid 0.6 0.5 - 2.2 mmol/L [facility] Specimen Blood Performing Organization Address City/[facility]/Zipcode Phone Number [facility] [address] [place] [phone] PATHOLOGY AND GENOMIC MEDICINE [address] * Lactic acid level, SEPSIS - Now and repeat 2x every 3 hours (06/26/2018 5:18 AM DELIVERY ANALYST) Only the most recent of 15 results within the time period is included. Lactic acid 1.3 0.5 - 2.2 mmol/L [facility] Specimen Blood Performing Organization Address [facility] Phone Number [place] [phone] PATHOLOGY AND GENOMIC MEDICINE [address] * Blood culture, aerobic & anaerobic (06/17/2018 5:52 AM DELIVERY ANALYST) Only the most recent of 12 results within the time period is included. Blood culture isolate No growth after 5 days of [facility] incubation. HOSPITAL Comment: Specimen Information Specimen Source: Blood Specimen Site: LEFT HAND Specimen Blood Performing Organization Address City/[facility]/Zipcode Phone Number [facility] [place] [place] [address] PATHOLOGY AND GENOMIC MEDICINE [address] * CT Abdomen Pelvis W Contrast (06/17/2018 5:17 AM DELIVERY ANALYST) Only the most recent of 17 results within the time period is included. Narrative Performed At EXAMINATION:CT ABDOMEN PELVIS W CONTRAST [facility] CLINICAL HISTORY:Abd painunspecified TECHNIQUE: Multiple axial images of the abdomen and pelvis were obtained following intravenous administration of iodinated contrast. Sagittal and coronal computerized reformatted images were also obtained. CT imaging was performed with iterative reconstruction technique and/or automated exposure control to reduce radiation dose. COMPARISON:06/06/2018 IMPRESSION: Liver, gallbladder, spleen, pancreas, adrenal glands are normal. Kidneys, ureters are normal. Bladder is decompressed with Botello catheter in the lumen. Small ascites. No free intraperitoneal air. Atherosclerotic vascular calcifications are seen. A few diverticula are seen without diverticulitis. Air-fluid levels are seen throughout nondilated loops of large bowel and small bowel. In addition, some mild wall thickening of the distal sigmoid colon is seen, and these findings suggest colitis/enteritis. The appendix is normal. No gastrointestinal tract obstruction. No acute osseous abnormalities. Postoperative appearance of the lower lumbar spine. There is 1.2 cm anterolisthesis of L5 on S1. CONCLUSION: Findings are most suggestive of colitis/enteritis. [facility]-[id number] Procedure Note [facility], Radiology Results Incoming - 06/17/2018 5:28 AM DELIVERY ANALYST EXAMINATION: CT ABDOMEN PELVIS W CONTRAST CLINICAL HISTORY: Abd pain unspecified TECHNIQUE: Multiple axial images of the abdomen and pelvis were obtained following intravenous administration of iodinated contrast. Sagittal and coronal computerized reformatted images were also obtained. CT imaging was performed with iterative reconstruction technique and/or automated exposure control to reduce radiation dose. COMPARISON: 06/06/2018 IMPRESSION: Liver, gallbladder, spleen, pancreas, adrenal glands are normal. Kidneys, ureters are normal. Bladder is decompressed with Botello catheter in the lumen. Small ascites. No free intraperitoneal air. Atherosclerotic vascular calcifications are seen. A few diverticula are seen without diverticulitis. Air-fluid levels are seen throughout nondilated loops of large bowel and small bowel. In addition, some mild wall thickening of the distal sigmoid colon is seen, and these findings suggest colitis/enteritis. The appendix is normal. No gastrointestinal tract obstruction. No acute osseous abnormalities. Postoperative appearance of the lower lumbar spine. There is 1.2 cm anterolisthesis of L5 on S1. CONCLUSION: Findings are most suggestive of colitis/enteritis. [facility]-[id number] Performing Organization Address City/State/Zipcode Phone Number [facility] [address] [place] [address] * Comprehensive metabolic panel (06/17/2018 3:36 AM DELIVERY ANALYST) Only the most recent of 25 results within the time period is included. Sodium 133 (L) 135 - 150 mEq/L [facility] Potassium 3.8 3.5 - 5.0 mEq/L [facility] Chloride 94 (L) 98 - 112 mEq/L [facility] CO2 26 24 - 31 mmol/L [facility] Anion gap 13@ANIO 7 - 15 mEq/L [facility] BUN 4 (L) 7 - 18 mg/dL [facility] Creatinine 0.70 0.70 - 1.20 mg/dL [facility] Glucose 100 65 - 100 mg/dL [facility] Calcium 9.2 8.3 - 10.2 mg/dL [facility] Protein 7.8 6.3 - 8.3 g/dL [facility] Albumin 4.3 3.5 - 5.0 g/dL [facility] A/G ratio 1.2 0.7 - 3.8 [facility] Alkaline phosphatase 51 0 - 129 U/L [facility] AST 26 10 - 50 U/L [facility] ALT 30 5 - 50 U/L [facility] Total bilirubin 0.8 0.2 - 1.2 mg/dL [facility] Specimen Plasma specimen Performing Organization Address City/State/Zipcode Phone Number [facility] [address] [place] [address] PATHOLOGY AND GENOMIC MEDICINE [facility] [address] * XR Abdomen Acute Inc Chest (06/09/2018 9:42 PM DELIVERY ANALYST) Only the most recent of 4 results within the time period is included. Narrative Performed At Examination:XR ABDOMEN ACUTE INC CHEST [facility] Clinical History: Abd paingastroenteritis or colitis suspected, Abd painunspecified, Shortness of breath Comparison: None. Technique: Single frontal view of the chest and 2 views of the abdomen are obtained. Findings: On the chest film, the lungs are free of infiltrate. The heart size normal. No pleural effusion is seen. On the abdominal films, the bowel gas pattern is nonspecific with moderate fecal material throughout the colon. No free air is seen. No bowel dilatation is seen. Impression: Nonspecific but nonobstructive bowel gas pattern with moderate fecal material throughout the colon. [facility]-[id number] Procedure Note Hm Interface, Radiology Results Incoming - 06/09/2018 9:56 PM DELIVERY ANALYST Examination: XR ABDOMEN ACUTE INC CHEST Clinical History: Abd pain gastroenteritis or colitis suspected, Abd pain unspecified, Shortness of breath Comparison: None. Technique: Single frontal view of the chest and 2 views of the abdomen are obtained. Findings: On the chest film, the lungs are free of infiltrate. The heart size normal. No pleural effusion is seen. On the abdominal films, the bowel gas pattern is nonspecific with moderate fecal material throughout the colon. No free air is seen. No bowel dilatation is seen. Impression: Nonspecific but nonobstructive bowel gas pattern with moderate fecal material throughout the colon. [facility]-[id number] Performing Organization Address City/State/Zipcode Phone Number [facility] [address] [place] [address] * Occult blood, stool (06/06/2018 7:52 PM DELIVERY ANALYST) Only the most recent of 2 results within the time period is included. Occult blood, stool Negative for occult blood. [facility] Comment: [facility] Specimen Information Specimen Source: Stool Specimen Site: Nonpreserved Specimen Stool - Nonpreserved Performing Organization Address City/State/Zipcode Phone Number [facility] [place] [address] [place] [address] PATHOLOGY AND GENOMIC MEDICINE [place] [address] [address] [place] [phone] [place] [address] * CT Head Wo Contrast (04/19/2018 5:35 AM DELIVERY ANALYST) Only the most recent of 2 results within the time period is included. Narrative Performed At EXAMINATION: CT HEAD WO CONTRAST [facility] CLINICAL HISTORY: dizzy COMPARISON:12/11/2017 TECHNIQUE: Noncontrast enhanced images of the brain were obtained from the skull base to the vertex. Both soft tissue and bone reconstruction algorithms were performed. CT imaging was performed with iterative reconstruction technique and/or automated exposure control to reduce radiation dose. IMPRESSION: No intracranial hemorrhage, mass, mass effect, or herniation. Age-related volume loss is seen as characterized by prominence of cerebral sulci and ventricular systems. Periventricular and subcortical white matter hypodensities are seen, compatible with sequelae of chronic small vessel ischemic disease. No acute osseous abnormalities. Minimal mucosal thickening of left maxillary sinus. Partial opacification of some ethmoid air cells. CONCLUSION: No acute intracranial abnormality. Chronic age-related changes and sequelae of chronic small vessel ischemic disease. [id number] Procedure Note Interface, Radiology Results Incoming - 04/19/2018 5:43 AM DELIVERY ANALYST EXAMINATION: CT HEAD WO CONTRAST CLINICAL HISTORY: dizzy COMPARISON: 12/11/2017 TECHNIQUE: Noncontrast enhanced images of the brain were obtained from the skull base to the vertex. Both soft tissue and bone reconstruction algorithms were performed. CT imaging was performed with iterative reconstruction technique and/or automated exposure control to reduce radiation dose. IMPRESSION: No intracranial hemorrhage, mass, mass effect, or herniation. Age-related volume loss is seen as characterized by prominence of cerebral sulci and ventricular systems. Periventricular and subcortical white matter hypodensities are seen, compatible with sequelae of chronic small vessel ischemic disease. No acute osseous abnormalities. Minimal mucosal thickening of left maxillary sinus. Partial opacification of some ethmoid air cells. CONCLUSION: No acute intracranial abnormality. Chronic age-related changes and sequelae of chronic small vessel ischemic disease. [id number] Performing Organization Address City/State/Zipcode Phone Number [facility] [address] [place] [address] * Troponin (04/19/2018 4:18 AM DELIVERY ANALYST) Troponin <0.30 0.00 - 0.30 ng/mL [facility] Comment: [facility] 0.11 - 1.49 ng/mlMay indicate increased risk of acute coronary syndrome. >=1.5 ng/ml Consistent with acute myocardial infarction. The diagnostic value of a single normal or non-diagnostic result is questionable.Serial samples at 2-6 hour intervals are required to rule out acute myocardial injury. Specimen Plasma specimen Performing Organization Address City/State/Zipcode Phone Number [facility] [address] [place] [address] PATHOLOGY AND GENOMIC MEDICINE [place] [phone] [address] [place], [place] [phone] [place] [address] * B natriuretic peptide (04/19/2018 4:18 AM DELIVERY ANALYST) BNP 48 0 - 100 pg/mL [facility] Specimen Blood Performing Organization Address City/State/Zipcode Phone Number [facility] DEPARTMENT OF [address] [place] [address] PATHOLOGY AND GENOMIC MEDICINE [facility] [address] [place], [place] [phone] [address] * ECG 12 lead (04/19/2018 4:09 AM DELIVERY ANALYST) Only the most recent of 3 results within the time period is included. Ventricular rate 50 [facility] Atrial rate 50 [facility] WI interval 170 [facility] QRSD interval 102 [facility] QT interval 416 [facility] QTC interval 379 [facility] P axis 1 54 [facility] QRS axis 1 42 [facility] T wave axis 56 [facility] EKG impression Sinus bradycardia-Otherwise [facility] normal ECG-In automated comparison with ECG of 29-JAN-2018 06:19,-Vent. rate has decreased BY 40 BPM-QT has shortened- Narrative Performed At Performing Organization Address City/State/Zipcode Phone Number [facility] [address] [place] [address] * CT Abdomen Pelvis Wo Contrast (04/12/2018 9:46 AM DELIVERY ANALYST) Only the most recent of 8 results within the time period is included. Narrative Performed At EXAMINATION:CT ABDOMEN PELVIS WO CONTRAST [facility] CLINICAL HISTORY:57 years Male abd painconstipation. r o SBO or impaction TECHNIQUE:Multiple axial images of the abdomen and pelvis were obtained without intravenous administration of iodinated contrast. Sagittal and coronal computerized reformatted images were also obtained. The lack of intravenous contrast reduces the sensitivity of detecting solid organ disease. CT imaging was performed with iterative reconstruction techniques and/or automated exposure control to reduce radiation dose. COMPARISON:04/09/2018 IMPRESSION: LUNG BASES: The lung bases are free of acute disease. ABDOMEN: Liver: The liver is normal. No focal mass. Gallbladder/Biliary: The gallbladder is normal. There is no evidence of intra or extrahepatic biliary ductal dilatation. Spleen: The spleen is not enlarged. Pancreas: The pancreas is unremarkable. Adrenal Glands: The adrenal glands are unremarkable. Kidneys: The kidneys are unremarkable. No mass, hydronephrosis or calculi. Vascular: The abdominal aorta is minimally atherosclerotic without evidence of aneurysm. Nodes: No enlarged retroperitoneal or mesenteric lymphadenopathy. Bowel: There are a few scattered diverticula in the sigmoid colon. There is no evidence of acute diverticulitis. The appendix is unremarkable. There is a small hiatal hernia. There is no evidence of intestinal obstruction. Ascites/fluid collections: No ascites or fluid collections. PELVIS: A benign prostatic calcification is noted. The urinary bladder is unremarkable. There is no evidence of pelvic mass, fluid collection, or pelvic lymphadenopathy. MUSCULOSKELETAL: There are degenerative changes at the lumbosacral junction. There are no suspicious bony abnormalities. SUMMARY: 1.No acute abdominal or pelvic abnormality. 2.Small hiatal hernia. 3.Sigmoid diverticulosis without evidence of diverticulitis. [facility]-[id number] Procedure Note Interface, Radiology Results Incoming - 04/12/2018 10:00 AM DELIVERY ANALYST EXAMINATION: CT ABDOMEN PELVIS WO CONTRAST CLINICAL HISTORY:57 years Male abd pain constipation. r o SBO or impaction TECHNIQUE: Multiple axial images of the abdomen and pelvis were obtained without intravenous administration of iodinated contrast. Sagittal and coronal computerized reformatted images were also obtained. The lack of intravenous contrast reduces the sensitivity of detecting solid organ disease. CT imaging was performed with iterative reconstruction techniques and/or automated exposure control to reduce radiation dose. COMPARISON: 04/09/2018 IMPRESSION: LUNG BASES: The lung bases are free of acute disease. ABDOMEN: Liver: The liver is normal. No focal mass. Gallbladder/Biliary: The gallbladder is normal. There is no evidence of intra or extrahepatic biliary ductal dilatation. Spleen: The spleen is not enlarged. Pancreas: The pancreas is unremarkable. Adrenal Glands: The adrenal glands are unremarkable. Kidneys: The kidneys are unremarkable. No mass, hydronephrosis or calculi. Vascular: The abdominal aorta is minimally atherosclerotic without evidence of aneurysm. Nodes: No enlarged retroperitoneal or mesenteric lymphadenopathy. Bowel: There are a few scattered diverticula in the sigmoid colon. There is no evidence of acute diverticulitis. The appendix is unremarkable. There is a small hiatal hernia. There is no evidence of intestinal obstruction. Ascites/fluid collections: No ascites or fluid collections. PELVIS: A benign prostatic calcification is noted. The urinary bladder is unremarkable. There is no evidence of pelvic mass, fluid collection, or pelvic lymphadenopathy. MUSCULOSKELETAL: There are degenerative changes at the lumbosacral junction. There are no suspicious bony abnormalities. SUMMARY: 1. No acute abdominal or pelvic abnormality. 2. Small hiatal hernia. 3. Sigmoid diverticulosis without evidence of diverticulitis. [facility]-[id number] Performing Organization Address City/[facility]/Zipcode Phone Number [facility] [address] [place] [address] * Partial thromboplastin time, activated (03/21/2018 5:25 AM DELIVERY ANALYST) PTT 28.6 23.0 - 36.0 sec FORDS RESTORATIONIST Comment: [facility] PTT therapeutic range for unfractionated heparin is 61.0-112.0 seconds which corresponds to Anti-Xa 0.3-0.7 U/ml. Note:Change in Panic Value The PTT Panic Value is changing from 110 sec. to 100 sec. due to new instrumentation and reagents. Correlation studies have been performed to validate this result. Specimen Blood Performing Organization Address City/[facility] Phone Number [facility] DEPARTMENT OF [address] [place] [address] PATHOLOGY AND GENOMIC MEDICINE [id number] [place] [address] * CTA Abdomen Pelvis W And Or Wo Contrast (03/02/2018 9:48 PM CDT) Narrative Performed At EXAMINATION:CT ANGIOGRAM ABDOMEN PELVIS W AND OR WO CONTRAST [facility] CLINICAL HISTORY:severe abd pain TECHNIQUE: Multiple CT angiographic images of the abdomen and pelvis were obtained during intravenous administration of contrast. Multiple computerized reformatted images as well as 3-D volume rendered images were also obtained. COMPARISON:02/24/2018 abdomen/pelvis CT. FINDINGS: CTA: The aorta is normal in caliber in its entirety. There is no evidence of acute aortic pathology. Specifically, no dissection, penetrating ulcer, or intramural hematoma. There is minimal aortic atherosclerosis. The origins of the celiac trunk, SMA, and renal arteries are normal in appearance without stenosis. Visible portions of these arteries and their branches are normal. There is minimal calcific atherosclerosis of the iliac branches bilaterally, without flow-limiting stenosis. Abdomen/pelvis: Visible portions of the lower lungs are normal. The lower heart appears normal. The hepatobiliary system is unremarkable. The kidneys, spleen, adrenal glands, and pancreas, are normal in appearance. The gastrointestinal tract is normal in caliber. The appendix is normal. The prostate is slightly enlarged but otherwise unremarkable. Other structures of the abdomen and pelvis are unremarkable. Soft tissue/bones: No acute soft tissue or bony abnormality. There is surgical fusion of L5-S1 which is associated with chronic anterolisthesis of L5 on S1. There is fusion of the posterior elements at these levels. Linear tracts through the posterior elements related to previously removed surgical hardware. IMPRESSION: No acute arterial abnormalities. Minimal calcific atherosclerosis as detailed above. No acute abnormality in the abdomen and pelvis. [facility]-[id number] Procedure Note Interface, Radiology Results Incoming - 03/02/2018 10:06 PM CDT EXAMINATION: CT ANGIOGRAM ABDOMEN PELVIS W AND OR WO CONTRAST CLINICAL HISTORY: severe abd pain TECHNIQUE: Multiple CT angiographic images of the abdomen and pelvis were obtained during intravenous administration of contrast. Multiple computerized reformatted images as well as 3-D volume rendered images were also obtained. COMPARISON: 02/24/2018 abdomen/pelvis CT. FINDINGS: CTA: The aorta is normal in caliber in its entirety. There is no evidence of acute aortic pathology. Specifically, no dissection, penetrating ulcer, or intramural hematoma. There is minimal aortic atherosclerosis. The origins of the celiac trunk, SMA, and renal arteries are normal in appearance without stenosis. Visible portions of these arteries and their branches are normal. There is minimal calcific atherosclerosis of the iliac branches bilaterally, without flow-limiting stenosis. Abdomen/pelvis: Visible portions of the lower lungs are normal. The lower heart appears normal. The hepatobiliary system is unremarkable. The kidneys, spleen, adrenal glands, and pancreas, are normal in appearance. The gastrointestinal tract is normal in caliber. The appendix is normal. The prostate is slightly enlarged but otherwise unremarkable. Other structures of the abdomen and pelvis are unremarkable. Soft tissue/bones: No acute soft tissue or bony abnormality. There is surgical fusion of L5-S1 which is associated with chronic anterolisthesis of L5 on S1. There is fusion of the posterior elements at these levels. Linear tracts through the posterior elements related to previously removed surgical hardware. IMPRESSION: No acute arterial abnormalities. Minimal calcific atherosclerosis as detailed above. No acute abnormality in the abdomen and pelvis. [facility]-[id number] Performing Organization Address City/State/Zipcode Phone Number YANI[facility] [address] [facility] [place] [address] * Hemoglobin A1c (01/30/2018 5:11 AM CDT) Hemoglobin A1C 4.8 4.0 - 6.0 % [facility] OF Comment: PATHOLOGY AND GENOMIC MEDICINE Less than 6% - Goal of therapy for Type II Diabetes Less than 7%-Goal of therapy for Type I Diabetes Less than 8%-Accepta ble control for Type I or Type II Diabetes Greater than 8%-Unacceptabl e control; action indicated. ([id number]) Specimen Blood Performing Organization Address City/State/Zipcode Phone Number [facility] DE[facility]MENT OF [address] [place] [address] PATHOLOGY AND GENOMIC MEDICINE * Lipid panel (01/30/2018 5:11 AM CDT) Cholesterol 77 0 - 199 mg/dL [facility] PATHOLOGY AND GENOMIC MEDICINE Triglycerides 49 0 - 149 mg/dL [facility] PATHOLOGY AND GENOMIC MEDICINE HDL cholesterol 46 40 - 9,999 mg/dL [facility] OF PATHOLOGY AND GENOMIC MEDICINE LDL cholesterol 30Comment: Result obtained by 0 - 99 mg/dL [facility] direct LDL measurement PATHOLOGY AND [facility] MEDICINE Lipid panel See below [facility] OF interpretation Comment: PATHOLOGY AND Total Cholesterol GENOMIC MEDICINE (mg/dL) LDL Cholesterol (mg/dL) <200 Desirable <100 Optimal 200-239Borderline -[id number] 29Near or above optimal >=240High 130-159Borderline- high 160-189High >=190Very high HDL Cholesterol (mg/dL) Triglycerides (mg/dL) <40Low <150 Normal >=60 High 150-199Borderline- high 200-499High >=500Very high Risk Catergories that modify LDL goals. Risk Catergories LDL goal (mg/dL) CHD and CHD risk equivalent <100 (10-year risk >20%) Multiple (2+) risk factors <130 (10-year risk=<20%) 0-1 risk factors <160 (<10-year risk) Defining levels of lipids in metabolic syndrome Triglycerides >=150 mg/dL HDL Cholesterol Men <40 mg/dL Women <50 mg/dL Non-HDL cholesterol is a second target for therapy in persons with high triglycerides (>=200 mg/dL) Specimen Plasma specimen Performing Organization Address City/State/Zipcode Phone Number [place] [id number] [place] [address] PATHOLOGY AND GENOMIC MEDICINE * Consult to Sepsis Response Team (01/29/2018 2:56 PM CDT) Narrative Performed At MAURO Landry 01/29/20183:55 PM Lab reporting lactic acid level 2.[address] for sepsis Source:UTI IVF bolus:1.5 liters and D5 1/2NS at 75cc/hr BC x2, results pending Lactic acid level: 0.7/0.6/2.7 - will trend Antibiiotics: Rocephin CT abd.:negative Sepsis Clinical Assessment Performed by: JOHNY MCCALLUM Authorized by: JOHNY MCCALLUM Sepsis Clinical Assessment General Assessment Information Current sepsis score:1 On comfort care?: No If score does not worsen, snooze alerts until:01/30/2018 03:00 CDT SIRS Criteria WBC > 12 K/mcL due to acute condition Organ Dysfunction Lactate > 2.0 mmol/L due to acute condition Sepsis Assessment Clinical suspicion of infection? Yes Time of suspicion of infection:01/29/2018 2:57 PM Clinical suspicion of sepsis?: Yes Sepsis staging:Sepsis Sepsis protocol started?Yes Where did the protocol start?:ED Started Suspected Type/Source of Infection Suspected Type of Infection: Bacterial Suspected Source of Infection: UTI Focus Exam Sepsis focus exam performed at 01/29/2018 3:00 PM Cardiopulmonary Exam Heart: Regular rate & rhythm Left Lung: Clear Right Lung: Clear Capillary Refill Capillary refill rate: Brisk, < 3 s Peripheral Pulses Left dorsalis pedis:Normal Right dorsalis pedis:Normal Left posterial tibial: Normal Right posterial tibial:Normal Left radial:Normal Right radial:Normal Skin Exam Skin exam: Skin color normal Sepsis Related Vitals Heart rate: 71 Temperature: 97.4 F Respiratory rate: 17 Blood pressure: 138/79 Altered mental status: WBC (k/uL) Date Value 01/29/2018 15.7 (H)01/25/2018 9.9 Weight-Based Fluid Bolus Calculation The recommended weight-based bolus volume: 2,382 mL (actual weight) Please refer to the MAR for actual med/fluid administrations. 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 Interpretation: Interpretation: normal Rate: ECG rate:90 ECG rate assessment: normal Rhythm: Rhythm: sinus rhythm Ectopy: Ectopy: none QRS: QRS axis:Normal Conduction: Conduction: normal ST segments: ST segments:Normal T waves: T waves: normal * CRITICAL CARE (01/29/2018 6:00 AM CDT) Narrative Performed At Tunde Krishnan MD 01/30/2018 10:06 AM Critical Care Performed by: TUNDE KRISHNAN Authorized by: TUNDE KRISHNAN Critical care provider statement: Critical care time (minutes):35 Critical care time was exclusive of:Separately billable procedures and treating other patients and teaching time Critical care was necessary to treat or prevent imminent or life-threatening deterioration of the following conditions:Sepsis Critical care was time spent personally by me on the following activities:Development of treatment plan with patient or surrogate, discussions with consultants, evaluation of patient's response to treatment, examination of patient, obtaining history from patient or surrogate, ordering and performing treatments and interventions, ordering and review of laboratory studies, ordering and review of radiographic studies, pulse oximetry, re-evaluation of patient's condition and review of old charts * FAST ULTRASOUND (01/26/2018 12:21 AM CDT) Narrative Performed At Alex Andrews MD 01/26/20182:12 AM FAST Ultrasound Performed by: ALEX ANDREWS Authorized by: ALEX ANDREWS Procedure details: Technique:Abdominal Abdominal findings: Bladder:Visualized (no obvious distended bladder appreciated.) * XR Abdomen 1 Vw (01/07/2018 10:49 AM CDT) Only the most recent of 3 results within the time period is included. Narrative Performed At EXAMINATION:XR ABDOMEN 1 VW HM [facility] CLINICAL HISTORY:constipation COMPARISON:None. FINDINGS: The bowel gas pattern is nonspecific. No significant retained fecal debris is seen. The lung bases are clear. 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 IMPRESSION: Unremarkable abdominal radiograph with no radiographic evidence of significant constipation. [id number] Procedure Note Hm Interface, Radiology Results Incoming - 01/07/2018 10:56 AM CDT EXAMINATION: XR ABDOMEN 1 VW CLINICAL HISTORY: constipation COMPARISON: None. FINDINGS: The bowel gas pattern is nonspecific. No significant retained fecal debris is seen. The lung bases are clear. 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 IMPRESSION: Unremarkable abdominal radiograph with no radiographic evidence of significant constipation. [facility]-[id number] Performing Organization Address City/[facility] Phone Number [facility] [address] [place] [address] * Estimated GFR (01/07/2018 10:23 AM CDT) Only the most recent of 26 results within the time period is included. GFR Non Af Amer >90 mL/min/1.73 m2 [facility] OF PATHOLOGY AND GENOMIC MEDICINE GFR Af Amer >90 mL/min/1.73 m2 [facility] OF Comment: PATHOLOGY AND Chronic kidney disease: <60 GENOMIC MEDICINE mL/min/1.73m2 Kidney failure: <15 mL/min/1.73m2 The estimated GFR is calculated from the IDMS-traceable Modification of Diet in Renal Disease Equation. The accuracy of the calculation is poor when the creatinine is normal. Calculated values >90 mL/min/1.73m2 are not reported. This equation has not been validated in children (<18 years), women, the elderly (>70 years), or ethnic groups other than Caucasians and Americans. Specimen Plasma specimen Performing Organization Address City/State/[facility] Hospitalcode Phone Number [facility] [address] [place] [address]. [place] [address] PATHOLOGY AND GENOMIC MEDICINE * Surgical pathology request (12/03/2017 2:14 PM CDT) Only the most recent of 2 results within the time period is included. [facility] PATHOLOGY AND GENOMIC MEDICINE Surgical pathology report See link below for PDF Lab [facility] OF Report PATHOLOGY AND GENOMIC MEDICINE Result status This is Final Report to [facility] OF [id number] PATHOLOGY AND GENOMIC MEDICINE Performing Organization Address City/State/Zipcode Phone Number [facility] OF [address] [place] [address] PATHOLOGY AND GENOMIC MEDICINE * Prostate specific antigen (12/02/2017 6:37 AM CDT) PSA 0.5 0.0 - 4.0 ng/mL [facility] DEPARTMENT OF Comment: PATHOLOGY AND The JOSE 8000 PSA immunoassay [facility] [employer] was used. Results obtained with different assay methods or kits should not be used interchangeably and may be different. Specimen Plasma specimen Performing Organization Address City/State/Zipcode Phone Number [facility] DEPARTMENT OF [address] [place] [address] PATHOLOGY AND GENOMIC MEDICINE * MRI Abdomen W Wo Contrast (12/01/2017 8:46 PM CDT) Narrative Performed At [facility] EXAMINATION:MRI ABDOMEN W WO CONTRAST CLINICAL HISTORY:Soft tissue swellinginfection suspectedabdomen xray donenext study TECHNIQUE: Multiplanar multisequence MR images of the abdomen were obtained pre- and post dynamic intravenous administration of 6 cc Gadolinium.MRCP images were obtained with 3-D reconstructions on the acquisition scanner under concurrent supervision. COMPARISON:CT abdomen pelvis 12/01/2017 FINDINGS: Regional abdomen soft tissue is unremarkable. There is no evidence of inflammation or abscess. The liver, spleen, pancreas, adrenal glands, kidneys and gallbladder is normal in appearance. The image portion of GI tract is unremarkable. The lung bases are unremarkable. No abdominal ascites seen. There is no evidence of pathologic lymphadenopathy. Postsurgical changes of laminectomy at L5-S1 level is again noted. IMPRESSION: Unremarkable MRI abdomen exam with no evidence of abdominal wall infection or abscess. [id number] Procedure Note Interface, Radiology Results Incoming - 12/01/2017 9:09 PM CDT EXAMINATION: MRI ABDOMEN W WO CONTRAST CLINICAL HISTORY: Soft tissue swelling infection suspected abdomen xray done next study TECHNIQUE: Multiplanar multisequence MR images of the abdomen were obtained pre- and post dynamic intravenous administration of 6 cc Gadolinium. MRCP images were obtained with 3-D reconstructions on the acquisition scanner under concurrent supervision. COMPARISON: CT abdomen pelvis 12/01/2017 FINDINGS: Regional abdomen soft tissue is unremarkable. There is no evidence of inflammation or abscess. The liver, spleen, pancreas, adrenal glands, kidneys and gallbladder is normal in appearance. The image portion of GI tract is unremarkable. The lung bases are unremarkable. No abdominal ascites seen. There is no evidence of pathologic lymphadenopathy. Postsurgical changes of laminectomy at L5-S1 level is again noted. IMPRESSION: Unremarkable MRI abdomen exam with no evidence of abdominal wall infection or abscess. [id number] Performing Organization Address City/State/Zipcode Phone Number [facility] [address] [place] [address] * CRITICAL CARE (12/01/2017 2:55 AM CDT) Narrative Performed At Alex Carrasco MD 12/01/20178:49 PM Critical Care Performed by: ALEX CARRASCO Authorized by: ALEX CARRASCO Critical care provider statement: Critical care time (minutes):35 Critical care time was exclusive of:Separately billable procedures and treating other patients Critical care was necessary to treat or prevent imminent or life-threatening deterioration of the following conditions:Sepsis (sirs with lactate) Critical care was time spent personally by me on the following activities:Blood draw for specimens, ordering and performing treatments and interventions, ordering and review of laboratory studies, development of treatment plan with patient or surrogate, discussions with consultants, ordering and review of radiographic studies, pulse oximetry, discussions with primary provider, re-evaluation of patient's condition, examination of patient, evaluation of patient's response to treatment and review of old charts Doug 'yes' if you are taking over critical care for this patient from another provider.: no * XR Lumbar Spine 2 Or 3 Vw (10/04/2017 3:49 PM CDT) Narrative Performed At EXAMINATION: XR LUMBAR SPINE 2 OR 3 VW [facility] CLINICAL HISTORY: BACK 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 Chronic appearing grade 1/2 anterolisthesis of L5 on S1 which appears chronically fused on the CT abdomen and pelvis obtained on 10/04/2017. Status post decompressive L5 laminectomy. Marked bilateral facet hypertrophy at L4-L5 and L5-S1. Mild intervertebral disc space narrowing of the remaining lumbar levels with mild anterior osteophyte formation at L3-L4. Vertebral body heights appear maintained. [id number] Procedure Note Hm Interface, Radiology Results Incoming - 10/04/2017 4:02 PM CDT EXAMINATION: XR LUMBAR SPINE 2 OR 3 VW CLINICAL HISTORY: BACK PAIN 6 WKS DESPITE CONSERVATIVE [place] COMPARISON: CT abdomen and pelvis 10/04/2017 IMPRESSION: No evidence of fracture or acute abnormality. Chronic appearing grade 1/2 anterolisthesis of L5 on S1 which appears chronically fused on the CT abdomen and pelvis obtained on 10/04/2017. Status post decompressive L5 laminectomy. Marked bilateral facet hypertrophy at L4-L5 and L5-S1. Mild intervertebral disc space narrowing of the remaining lumbar levels with mild anterior osteophyte formation at L3-L4. Vertebral body heights appear maintained. [id number] Performing Organization Address City/[facility]/Zipcode Phone Number [facility] [address] [place] [address] * Phosphorus level (09/27/2017 5:17 AM CDT) Phosphorus 4.5 2.5 - 4.5 mg/dL [facility] OF PATHOLOGY AND GENOMIC MEDICINE Specimen Plasma specimen Performing Organization Address City/[facility] Phone Number [address] [address] PATHOLOGY AND GENOMIC MEDICINE * CRITICAL CARE (09/25/2017 1:23 AM CDT) Narrative Performed At Alex Carrsaco MD 09/26/20175:52 PM Critical Care Performed by: ALEX CARRASCO Authorized by: ALEX CARRASCO Critical care provider statement: Critical care time (minutes):33 Critical care time was exclusive of:Separately billable procedures and treating other patients Critical care was necessary to treat or prevent imminent or life-threatening deterioration of the following conditions:Sepsis (sirs with source) Critical care was time spent personally by me on the following activities:Blood draw for specimens, ordering and performing treatments and interventions, ordering and review of laboratory studies, development of treatment plan with patient or surrogate, ordering and review of radiographic studies, pulse oximetry, discussions with primary provider, evaluation of patient's response to treatment, discussions with consultants, re-evaluation of patient's condition, review of old charts, examination of patient and obtaining history from patient or surrogate Doug 'yes' if you are taking over critical care for this patient from another provider.: no * Manual differential (09/17/2017 1:20 AM CDT) Only the most recent of 5 results within the time period is included. Manual differential PERFORMED [facility] OF PATHOLOGY AND GENOMIC MEDICINE Neutrophils 75.0 (H) 36.0 - 66.0 % [facility] OF PATHOLOGY AND GENOMIC MEDICINE Lymphocytes 18.0 (L) 24.0 - 44.0 % [facility] OF PATHOLOGY AND GENOMIC MEDICINE Monocytes 4.0 0.0 - 6.0 % [facility] OF PATHOLOGY AND GENOMIC MEDICINE Eosinophils 0.0 0.0 - 6.0 % [facility] OF PATHOLOGY AND GENOMIC MEDICINE Basophils 1.0 0.0 - 1.2 % [facility] OF PATHOLOGY AND GENOMIC MEDICINE Metamyelocytes 0 0 - 1 % [facility] OF PATHOLOGY AND GENOMIC MEDICINE Myelocytes 2 (H) 0 - 1 % [facility] OF PATHOLOGY AND GENOMIC MEDICINE Promyelocytes 0 0 - 1 % [facility] OF PATHOLOGY AND GENOMIC MEDICINE Platelet slide review Thuy adequate [facility] PATHOLOGY AND GENOMIC MEDICINE Performing Organization Address City/State/Zipcode Phone Number [facility] [address] [place] [address] PATHOLOGY AND GENOMIC MEDICINE * FL UGI w Air HD BA and Small Bowel (09/08/2017 2:54 PM CDT) Narrative Performed At EXAMINATION:FL UGI W AIR HD BA AND SMALL BOWEL [facility] CLINICAL HISTORY:rule out gastric outlet and small bowel obstruction COMPARISON:CT abdomen 09/06/2017 TECHNIQUE:UPPER GI SERIES AND SMALL BOWEL FOLLOW-THROUGH was performed with dilute Gastrografin (2 parts Gastrografin, one part water).. FLUOROSCOPIC TIME:1.1 minutes. 55 images. 232.68 milliGreys. DAP 94.144 IMPRESSION: 1.Esophagus: The hypopharynx and piriform sinuses are normal. Esophagus was distensible. The mucosa and motility were within normal limits. There is no evidence of stricture. 2.Gastroesophageal junction:No evidence of hiatal hernia. No reflux. No signs of gastric outlet obstruction. 3.Stomach:Normally distensible and demonstrates normal contours and mucosal pattern. 4.Duodenum:Bulb and sweep are normal. The duodenal-jejunal junction is in the normal expected position. 5.Small bowel follow-through:Small bowel loops are normal in caliber and distribution. Spot compression views of the terminal ileum are normal. Transit time was normal. [id number] Procedure Note Hm Interface, Radiology Results Incoming - 09/08/2017 3:31 PM CDT EXAMINATION: FL UGI W AIR HD BA AND SMALL BOWEL CLINICAL HISTORY: rule out gastric outlet and small bowel obstruction COMPARISON: CT abdomen 09/06/2017 TECHNIQUE: UPPER GI SERIES AND SMALL BOWEL FOLLOW-THROUGH was performed with dilute Gastrografin (2 parts Gastrografin, one part water).. FLUOROSCOPIC TIME: 1.1 minutes. 55 images. 232.68 milliGreys. DAP 94.144 IMPRESSION: 1. Esophagus: The hypopharynx and piriform sinuses are normal. Esophagus was distensible. The mucosa and motility were within normal limits. There is no evidence of stricture. 2. Gastroesophageal junction: No evidence of hiatal hernia. No reflux. No signs of gastric outlet obstruction. 3. Stomach: Normally distensible and demonstrates normal contours and mucosal pattern. 4. Duodenum: Bulb and sweep are normal. The duodenal-jejunal junction is in the normal expected position. 5. Small bowel follow-through: Small bowel loops are normal in caliber and distribution. Spot compression views of the terminal ileum are normal. Transit time was normal. [id number] Performing Organization Address City/[facility]/Zipcode Phone Number [facility] [address] [place] [address] * LDH (09/08/2017 4:26 AM CDT) LDH 288 (H) 81 - 234 U/L [facility] OF PATHOLOGY AND GENOMIC MEDICINE Specimen Plasma specimen Performing Organization Address City/[facility]/Zipcode Phone Number [facility] OF [address] [place] [address] PATHOLOGY AND GENOMIC MEDICINE * DC Hepatobiliary W Pharm (HIDA Scan w Pharm) (09/07/2017 1:45 PM CDT) Narrative Performed At PROCEDURE:DC HEPATOBILIARY W PHARM (HIDA SCAN W PHARM) [facility] INDICATION: Abdominal pain. TECHNIQUE: The patient was injected with 4 mCi of Tc-99m Choletec and planar dynamic images of the abdomen were acquired for one hour. The patient was then injected with a standard dose of IV CCK and a gallbladder ejection fraction was calculated. FINDINGS: Tracer is seen within the gallbladder and small bowel by one hour.After CCK infusion, there is normal contraction of the gallbladder.No reflux.Gallbladder ejection fraction is 72%.Normal is greater than 30%. IMPRESSION: 1.Normal study. [facility]-[id number] Procedure Note Interface, Radiology Results Incoming - 09/07/2017 1:57 PM CDT PROCEDURE: NM HEPATOBILIARY W PHARM (HIDA SCAN W PHARM) INDICATION: Abdominal pain. TECHNIQUE: The patient was injected with 4 mCi of Tc-99m Choletec and planar dynamic images of the abdomen were acquired for one hour. The patient was then injected with a standard dose of IV CCK and a gallbladder ejection fraction was calculated. FINDINGS: Tracer is seen within the gallbladder and small bowel by one hour. After CCK infusion, there is normal contraction of the gallbladder. No reflux. Gallbladder ejection fraction is 72%. Normal is greater than 30%. IMPRESSION: 1. Normal study. [facility]-[id number] Performing Organization Address [facility] Phone Number [facility] [address] [place] [address] * XR Chest 1 Vw Portable (09/06/2017 11:33 AM CDT) Narrative Performed At EXAMINATION:XR CHEST 1 VW PORTABLE RADIANT CLINICAL HISTORY:fever COMPARISON:None. IMPRESSION: The lungs are clear. The heart is not enlarged. The bony structures are within normal limits. [facility]-[id number] Procedure Note Interface, Radiology Results Incoming - 09/06/2017 11:46 AM CDT EXAMINATION: XR CHEST 1 VW PORTABLE CLINICAL HISTORY: fever COMPARISON: None. IMPRESSION: The lungs are clear. The heart is not enlarged. The bony structures are within normal limits. [facility]-[id number] Performing Organization Address [facility] Hospital[facility] Phone Number [facility] [address] [place] [address] * Vancomycin level, trough (09/05/2017 12:20 PM CDT) Vancomycin, trough 4.9 (L) 10.0 - 20.0 ug/mL [facility] OF Comment: PATHOLOGY AND Therapeutic Ranges: GENOMIC MEDICINE Peak30.0 - 40.0 ug/mL Zwkjnb36.0 - 20.0 ug/mL Specimen Blood Performing Organization Address City/State/Zipcode Phone Number [facility] [address] [place] [address] PATHOLOGY AND GENOMIC MEDICINE after 09/04/2017 Insurance Payer Benefit Subscriber ID Type Phone Address Plan / Group UHC MEDICAID [employer] xxxxxxxxx HMO COMM STAR+ SHAYE Advance Directives Patient has advance care planning documents, and code status on file. For more i nformation, please contact: [facility] [address] [place] [address] Date Inactivated Comments Code Status Date Activated 01/30/2018 8:53 PM Full Code 01/29/2018 11:06 AM Code Status decision reached by: Patient 10/05/2017 5:25 PM Full Code 10/04/2017 5:53 AM Code Status decision reached by: Patient 08/29/2017 8:17 PM Full Code 08/28/2017 2:44 AM Code Status decision reached by: Patient Code Status decision reached by: Patient
--- OUTSIDE RECORDS SUMMARY | 2018-09-05 01:03 | XMS REPORT | Continuity of Care Document ---
Author Author [facility] Organization [facility] Address [address] [facility] [place] [address] ;ext= Care Team Providers Care Installation Engineer Name Role Phone SUZANNA, CLEMENT Admphys Unavailable SUZANNA, CLEMENT Attphys Unavailable Hospital Admission Diagnosis Code Admission Diagnosis Date Abdominal pain Social History Element Description Code Description Smoking Status Code System Start Date End Date Smoking Status [id number] Current some day smoker SNOMED-CT Problems * No data in the system Medications SNOMED CT Description [id number] Drug Treatment Unknown Allergies * No Known Allergies Results Laboratory Results Order: STAT LAB CBC W AUTO DIFF Specimen Source: BLOOD Body Site: [facility] Test Result Flag Range Unit Date 1Leukocytes^^corrected for nucleated erythrocytes:NCnc:Pt:Bld:Qn:Automated count 9.38 4.80-10.80 10^3/ul 07/14/2018 15:12 789-8 1Erythrocytes:NCnc:Pt:Bld:Qn:Automated count 3.71 L 4.70-6.10 10^6/ul 07/14/2018 15:12 718-7 1Hemoglobin:MCnc:Pt:Bld:Qn 10.1 L 14.0-18.0 gm/dl 07/14/2018 15:12 4544-3 1Hematocrit:VFr:Pt:Bld:Qn:Automated count 31 L 42.0-50.0 % 07/14/2018 15:12 787-2 1Erythrocyte mean corpuscular volume:EntVol:Pt:RBC:Qn:Automated count 83.6 80.0-94.0 fL 07/14/2018 15:12 785-6 1Erythrocyte mean corpuscular hemoglobin:EntMass:Pt:RBC:Qn:Automated count 27.2 27.0-31.0 pg 07/14/2018 15:12 786-4 1Erythrocyte mean corpuscular hemoglobin concentration:MCnc:Pt:RBC:Qn:Automated count 32.6 L 33.0-37.0 gm/dl 07/14/2018 15:12 777-3 1Platelets:NCnc:Pt:Bld:Qn:Automated count 221 130-400 10^3/ul 07/14/2018 15:12 788-0 1Erythrocyte distribution width:Ratio:Pt:RBC:Qn:Automated count 18.4 H 11.5-14.5 % 07/14/2018 15:12 45199-8 1Platelet mean volume:EntVol:Pt:Bld:Qn:Automated count 9.8 A 7.4-10.4 fL 07/14/2018 15:12 770-8 1Neutrophils/100 leukocytes:NFr:Pt:Bld:Qn:Automated count 70.3 42.0-75.0 % 07/14/2018 15:12 736-9 1Lymphocytes/100 leukocytes:NFr:Pt:Bld:Qn:Automated count 12.5 L 13.0-42.0 % 07/14/2018 15:12 5905-5 1Monocytes/100 leukocytes:NFr:Pt:Bld:Qn:Automated count 6.9 4.0-14.0 % 07/14/2018 15:12 713-8 1Eosinophils/100 leukocytes:NFr:Pt:Bld:Qn:Automated count 7.1 H 1.0-3.0 % 07/14/2018 15:12 706-2 1Basophils/100 leukocytes:NFr:Pt:Bld:Qn:Automated count 3.1 H 1.0-3.0 % 07/14/2018 15:12 1IG% 0.1 0.0-0.4 % 07/14/2018 15:12 1Neutrophils 82 H 42-75 10^3/ul 07/14/2018 15:12 Note: No previous value was reported. A value of 82 was entered by [email or web address] on 07/14/2018 16:34 1Lymphocytes 7 L 13-42 % 07/14/2018 15:12 Note: No previous value was reported. A value of 7 was entered by [employer] on 07/14/2018 16:34 1Monocytes 2 L 4-14 % 07/14/2018 15:12 Note: No previous value was reported. A value of 2 was entered by [employer] on 07/14/2018 16:34 1Eosinophils 5 H 1-3 % 07/14/2018 15:12 Note: No previous value was reported. A value of 5 was entered by [employer] on 07/14/2018 16:34 1Basophils 4 H 0-1 % 07/14/2018 15:12 Note: No previous value was reported. A value of 4 was entered by [employer] on 07/14/2018 16:34 1RBC Morphology Anisocytosis Hypochromic Microcytic 07/14/2018 15:12 Note: No previous value was reported. A value of Anisocytosis Hypochromic Microcytic was entered by [employer] on 07/14/2018 16:34 * Performing Lab Footnotes:* [address] [place] [address] - [id number] - [address] [place] [address] [place] - MD: DIRECTOR GARY JERONIMO Order: STAT LAB CHEM 8 Specimen Source: BLOOD Body Site: LOINC Test Result Flag Range Unit Date 1Sodium 134 L 138-146 mmol/l 07/14/2018 15:12 1Potassium 4.4 3.5-4.9 mmol/l 07/14/2018 15:12 1Chloride 95 L 98-109 mmol/l 07/14/2018 15:12 1IONIZED CALCIUM 1.13 07/14/2018 15:12 1CO2 30 H 24-29 mmol/l 07/14/2018 15:12 1Glucose 100 70-105 mg/dl 07/14/2018 15:12 1BUN 11 6-17 mg/dl 07/14/2018 15:12 1Creatinine 0.7 0.6-1.3 mg/dl 07/14/2018 15:12 * Performing Lab Footnotes:* [address] [place] [address] [id number] - [address] [facility] [address] [place] [address] [facility] - MD: DIRECTOR GARY JERONIMO Order: UA URINALYSIS WITH MICROSCOPY Specimen Source: URINE SPECIMENS Body Site: [facility] Test Result Flag Range Unit Date 5778-6 1Color:Type:Pt:Urine:Nom YELLOW 07/14/2018 15:10 5767-9 1Appearance:Aper:Pt:Urine:Nom CLEAR 07/14/2018 15:10 2349-9 1Glucose:ACnc:Pt:Urine:Ord NEGATIVE NEGATIVE 07/14/2018 15:10 5770-3 1Bilirubin:ACnc:Pt:Urine:Ord:Test strip NEGATIVE NEGATIVE 07/14/2018 15:10 2514-8 1Ketones:ACnc:Pt:Urine:Ord:Test strip NEGATIVE NEGATIVE 07/14/2018 15:10 5811-5 1Specific gravity:Rden:Pt:Urine:Qn:Test strip 1.010 A 1.005-1.030 07/14/2018 15:10 5794-3 1Hemoglobin:ACnc:Pt:Urine:Ord:Test strip NEGATIVE NEGATIVE 07/14/2018 15:10 5803-2 1pH:LsCnc:Pt:Urine:Qn:Test strip 7.5 A 4.5-8.0 07/14/2018 15:10 90450-0 1Protein:ACnc:Pt:Urine:Ord:Test strip NEGATIVE NEGATIVE 07/14/2018 15:10 5818-0 1Urobilinogen:ACnc:Pt:Urine:Ord:Test strip 0.2 0.2 07/14/2018 15:10 5802-4 1Nitrite:ACnc:Pt:Urine:Ord:Test strip NEGATIVE NEGATIVE 07/14/2018 15:10 5799-2 1Leukocyte esterase:ACnc:Pt:Urine:Ord:Test strip NEGATIVE NEGATIVE 07/14/2018 15:10 5821-4 1Leukocytes:Naric:Pt:Urine sed:Qn:Microscopy.light.HPF 0-5 0-5 07/14/2018 15:10 83228-5 1Erythrocytes:Naric:Pt:Urine sed:Qn:Microscopy.light.HPF 0-5 0-5 07/14/2018 15:10 92506-4 1Epithelial cells.squamous:Naric:Pt:Urine sed:Qn:Microscopy.light.HPF 0-10 0-10 07/14/2018 15:10 5769-5 1Bacteria:Naric:Pt:Urine sed:Qn:Microscopy.light.HPF Trace None Seen,Trace 07/14/2018 15:10 * Performing Lab Footnotes:* [address] [place] [address] - [id number] - [address] [place] [address] [place] - MD: DIRECTOR GARY JERONIMO Radiology Results Order: [id number] CT ABDOMEN/PELVIS W/O CONTRAST* Exam Completion Date:07/14/2018 15:01 Procedure: CT ABDOMEN/PELVIS W/O CONTRAST Order date: 07/14/2018 3:01 PMOr dering Provider: ROBERT GUARDADOWUClinical Indication: Abdominal pain and rectal plane. History of leukemia.Comparison: NoneTechnique: Multiple axial helical CT images of the abdomen and pelvis wereobtained without IV contrast. Coronal and sagittal reformatted images were alsoobtained.This exam was performed according to the our departmental dose-optimizationprogram which includes automated exposu re control, adjustment of the mA and/orkV according to patient size and/or use o f iterative reconstruction techniques.Findings:Lung bases are clear and the hear t apex within normal limits. No inferiormediastinal abnormality. Inferior osseou s structures of the thorax areunremarkable.The solid abdominal viscera are unrem arkable. Stomach, small and large bowelare within normal limits.No peritoneal o r retroperitoneal masses or adenopathy. No free fluid orpneumoperitoneum.Appendi x not visualized. No inflammatory change in in the right lower quadrant.Urinary bladder decompressed by the Carey catheter. No pelvic masses oradenopathy seen. Perirectal fat planes are preserved.Osseous structures of the abdomen and pelvis are nonacute. Extensivepostoperative changes seen within the lower lumbar spine without acute osseousabnormality. Surgical changes of decompressive laminectomy at L4-L5 withanterolisthesis of L4 on L5 . However, there is fusion across the facet jointsand disc space.Impression:1. Nonacute CT of the abdomen and pelvis.2 . Other chronic incidental findings as above.This final report was electronicall y signed by Dr Lupillo Solis MD 07/14/20186:27 PMDictated By: LUPILLO SOLIS R.D ate: 07/14/2018 18:27 Vital Signs Vitals Value Date Pulse Rate 53 (beats)/min 07/14/2018 Respiratory Rate 17 (breaths)/min 07/14/2018 BP Systolic 136 mmHg 07/14/2018 BP Diastolic 79 mmHg 07/14/2018 O2% BldC Oximetry 100 % 07/14/2018 Body Temperature 98.1 F 07/14/2018 Weight Measured 136.24 lbs 07/14/2018 Advance Directives Patient does NOT have Living Will Directive Type Effective Date Hot Box Spotter Notes Supporting Document Name Address Phone No Directive Type specified 07/14/2018 15:04 Not Specified Not Specified Not Specified None No Family History * No Data Reported Plan of Care * No data in the system Procedures Code Code System Procedure Name Target Site Date of Procedure CT ABDOMEN/PELVIS W/O CONTRAST 07/14/2018 18:33 Encounters Date Code Diagnosis Status (ICD10) - R109 UNSPECIFIED ABDOMINAL PAIN Active Immunizations * No data in the system Functional Status * No data in the system Hospital Discharge Instructions * Discharge Instructions 2* No Data* pt recently moved to the area -- encouraged to establish PCP -- verbalizes understanding --- sent home with intact carey catheter that he came into ED with -- * Discharge Diagnosis* abdominal pain - * Important Information* Consult your physician or return to the Emergency Department immediately if worse, if not better as expected, or if any problems arise. * Follow Up Care* Yes * Important Information* Please understand that you have received care only on an emergency basis. If your condition does not improve, you should call your personal physician for follow-up care. If you do not have a physician, you may call the referred physician listed. * If you have questions about your care or these discharge instructions, you may call the Emergency Department. Please take your discharge paperwork with you to any follow-up appointments. * Follow Up Care* Patient To Schedule * Follow-Up With:* Primary Care Physician * Activity Level* As tolerated, unrestricted * Diet* Regular * Patient Teaching* Patient education provided * Change in Care * Pain Control * Activities
--- OUTSIDE RECORDS SUMMARY | 2018-09-05 01:03 | XMS REPORT | Continuity of Care Document ---
Author Author [facility] Organization [facility] Address Unknown Phone Unavailable Care Team Providers Care Double End Tenon Operator Name Role Phone Beau Grace DO PCP Insurance Providers Guarantor Robi Lyons Address [address] [place] [address] [facility] Policy Number [id number] Subscriber's Name Robi Lyons Relationship Self / Same As Patient Group Number [id number] Group Name MEDICAID Effective Date 11 Advance Directives Directive Response Recorded Date/Time Does the Patient have an Advance Directive? No 08/07/18 7:10pm Chief Complaint and Reason for Visit Chief Complaint Altered Mental Status Reason for Visit [id number] Abdominal pain Problems Medical Problem Onset Date Status [...] Days Qty Instructions Start Date Acetaminophen/Hydrocodone Bitart ([place] 10/325) 1 Tab Tab 1 Tab Oral Every 4 Hours Alprazolam (Xanax) 1 Mg Tab 1 Mg Oral Three Times A Day as needed for Anxiety Amlodipine Besylate (Norvasc) 10 Mg Tab 10 Mg Oral Every Morning Benazepril Hcl (Lotensin) 20 Mg Tab 20 Mg Oral Daily Cephalexin (Keflex) 500 Mg Cap 500 Mg Oral Three Times A Day 7 Days 21 Capsule 08/07/18 Docusate Sodium (Colace) 100 Mg Tablet 100 [...] Hx Tobacco Use Y - 1 PPD 08/07/2018 7:10pm Not Applicable Not Applicable Smoking Status Start Date Stop Date Current Every Day Smoker Hospital Discharge Instructions No hospital discharge instruction information available. Plan of Care Discharge Date 08/07/18 9:28pm Disposition HOME, SELF-CARE 01 Condition at Discharge Stable Instructions/Education Provided Urinary Tract Infection, Adult (DC) Prescriptions See Medication Section Referrals SELENABEAU GARCIA [place] Address: [address] [place] [address] [address] [place] [address] Note: Additional Instructions/Education F/U WITH PCP ON THURSDAY FOR RECHECK. MEDS DIRECTED. INCREASE ORAL FLUIDS. RETURN TO ED FOR URGENT CONCERNS Functional Status Query Response Date Recorded Onset Within the Last 7 Days No Problem Identified August 07, 2018 7:10pm Allergies, Adverse Reactions, Alerts Allergen Type Severity Reaction Status Last Updated No Known Drug Allergies Allergy Unknown Active 04/29/18 Immunizations Query Response on File Recorded Date/Time HX of Pneumococcal Vaccine No 08/07/18 7:10pm HX of Influenza Vaccine Unknown 08/07/18 7:10pm Date Influenza Given 02/201706/28/18 3:01pm Tetanus Status 5 - 10 Years 08/07/18 7:10pm Hx Hepatitis B Vaccination Unknown 09/16/12 3:11am Vital Signs Acute Vital Signs Vital Response Date/Time Temperature (Fahrenheit) 97.6 degrees F (97.6 - 99.5) 08/07/2018 9:27pm Pulse Rate (adult) 57 bpm (60 - 100) 08/07/2018 7:10pm Pulse Rate 57 bpm 08/07/2018 9:27pm Respiratory Rate 20 breaths per minute (12 - 24) 08/07/2018 7:10pm Respiratory Rate 20 breaths per minute 08/07/2018 9:27pm Blood Pressure Systolic 160 mm Hg (100 - 140) 08/07/2018 7:10pm Blood Pressure Systolic 160 mm Hg 08/07/2018 9:27pm Blood Pressure Diastolic 100 mm Hg (60 - 90) 08/07/2018 7:10pm Blood Pressure Diastolic 100 mm Hg 08/07/2018 9:27pm Height 5 ft 7 in 08/07/2018 7:11pm Weight 130 lb 08/07/2018 7:11pm Body Mass Index 20.4 kg/m^2 08/07/2018 7:11pm Results Laboratory Results Test Name Result Units [...] Hypochromasia 1+ 08/07/2018 7:38pm 08/07/2018 8:27pm Urine Source URINE 08/07/2018 7:55pm 08/07/2018 7:59pm Urine Color Lt Yellow Yel-Jennifer * 08/07/2018 7:55pm 08/07/2018 8:08pm Urine Appearance Clear Clear * 08/07/2018 7:55pm 08/07/2018 8:08pm Urine pH 7.0 5.0-8.0 08/07/2018 7:55pm 08/07/2018 8:08pm Urine Specific [place] 1.007 1.005-1.030 08/07/2018 7:55pm 08/07/2018 8:08pm Urine Protein Negative mg/dL Negative * 08/07/2018 7:55pm 08/07/2018 8:08pm Urine Glucose (UA) Negative mg/dL Negative * 08/07/2018 7:55pm 08/07/2018 8:08pm Urine Ketones Negative mg/dL Negative * 08/07/2018 7:55pm 08/07/2018 8:08pm Urine Occult Blood Negative Negative * 08/07/2018 7:55pm 08/07/2018 8:08pm Urine Nitrite Negative Negative 08/07/2018 7:55pm 08/07/2018 8:08pm Urine Bilirubin Negative mg/dL Negative 08/07/2018 7:55pm 08/07/2018 8:08pm Urine Urobilinogen Negative mg/dL 0.0-1.0 08/07/2018 7:55pm 08/07/2018 8:08pm Urine Leukocyte Esterase 75 Kary/uL H Negative 08/07/2018 7:55pm 08/07/2018 8:08pm Microscopic Urinalysis (T) ----- 08/07/2018 7:55pm 08/07/2018 8:08pm Urine RBC 0-2 /HPF 0-2 08/07/2018 7:55pm 08/07/2018 8:20pm Urine WBC 6-20 /HPF H 0-5 08/07/2018 7:55pm 08/07/2018 8:20pm Urine Epithelial Cells None Seen /HPF Few 08/07/2018 7:55pm 08/07/2018 8:20pm Urine Crystals None Seen /HPF None * 08/07/2018 7:55pm 08/07/2018 8:20pm Urine Bacteria Few /HPF A None 08/07/2018 7:55pm 08/07/2018 8:20pm Urine Casts Present /LPF A None * 08/07/2018 7:55pm 08/07/2018 8:20pm Urine Hyaline Casts 2-5 /LPF H 0-1 08/07/2018 7:55pm 08/07/2018 8:20pm Urine Yeast None Seen /HPF None 08/07/2018 7:55pm 08/07/2018 8:20pm Urinalysis Comment * * 08/07/2018 7:55pm 08/07/2018 8:08pm Ref Range=* Clinical evaluation required. Urine Culture Indicated To follow A 08/07/2018 [...] 58 U/L 53-128 08/07/2018 7:38pm 08/07/2018 8:00pm Procedures Procedure Status Date Provider(s) X-ray of abdomen, single view Completed 08/07/18 ELLEN FRANCIS APN Encounters Encounter Location Arrival/Admit Date Discharge/Depart Date Attending Provider Departed Emergency Room KRISTIE Montague 08/07/18 7:15pm 08/07/18 9:28pm SOM ADAMS DO Recent Diagnosis Abdominal pain
--- OUTSIDE RECORDS SUMMARY | 2018-09-05 01:03 | XMS REPORT ---
Author Author [facility] Address Unknown Phone Unavailable Care Team Providers Care Shift Mgr Name Role Phone UNKNOWN, REFERRING PP Unavailable ROBERT BRISENO Unavailable Unavailable Deric HERNANDEZ Unavailable Unavailable Problems This patient has no known problems. Allergies, Adverse Reactions, Alerts This patient has no known allergies or adverse reactions. Medications This patient has no known medications. Encounters Start Date/Time End Date/Time Encounter Type Admission Type Attending [facility] Facility Care Department Encounter ID 2017-07-28 16:53:00 2017-07-28 16:53:00 Emergency E [facility] [id number] 2017-07-14 16:47:00 2017-07-14 16:47:00 Emergency E [facility] [id number] 2017-07-04 15:52:00 2017-07-04 15:52:00 Emergency C [facility] [id number] 2017-06-24 23:05:00 2017-06-24 23:05:00 Emergency E [facility] [id number] 2017 21:57:00 2017 21:57:00 Emergency E [facility] [id number] 2017-02-19 03:08:00 2017-02-19 03:08:00 Emergency E [facility] [id number] 2017-02-02 18:25:00 2017-02-02 18:25:00 Emergency E [facility] [id number] 2017-01-30 21:49:00 2017-01-30 21:49:00 Emergency E [facility] [id number] 2016-07-29 01:50:00 2016-07-29 12:55:00 Inpatient 1 RENITA HERNANDEZ [facility] [id number] Results Test Description Test Time Test Comments Text Results Atomic Results Result Comments CULTURE, URINE 2018-07-16 12:50:00 tr3 Specimen: Urine SpecimensCollected: 07/14/2018 15:10 Status: Final Last Updated: 07/16/2018 12:50 (1) tr3 Culture Result (Final) (Final) No Growth After 48 Hours Result before changed by [email or web address] on 07/15/2018 14:13: Culture Result (Prelim) (Prelim) -No Growth After [address] ABDOMEN/PELVIS W/O CONTRAST 2018-07-14 18:33:37 NPO 4 hours. Do not withhold meds tr3 Procedure: CT ABDOMEN/PELVIS W/O CONTRASTOrder date: 07/14/2018 3:01 PMOrdering Provider: ROBERT ZAMORAUClinical Indication: Abdominal pain and rectal plane. History of leukemia.Comparison: NoneTechnique: Multiple axial helical CT images of the abdomen and pelvis wereobtained without IV contrast. Coronal and sagittal reformatted images were alsoobtained.This exam was performed according to the our departmental dose-optimizationprogram which includes automated exposure control, adjustment of the mA and/orkV according to patient size and/or use of iterative reconstruction techniques.Findings:Lung bases are clear and the heart apex within normal limits. No inferiormediastinal abnormality. Inferior osseous structures of the thorax areunremarkable.The solid abdominal viscera are unremarkable. Stomach, small and large bowelare within normal limits.No peritoneal or retroperitoneal masses or adenopathy. No free fluid orpneumoperitoneum.Appendix not visualized. No inflammatory change in in the right lower quadrant.Urinary bladder decompressed by the Botello catheter. No pelvic masses oradenopathy seen. Perirectal fat planes are preserved.Osseous structures of the abdomen and pelvis are nonacute. Extensivepostoperative changes seen within the lower lumbar spine without acute osseousabnormality. Surgical changes of decompressive laminectomy at L4-L5 withanterolisthesis of L4 on L5 . However, there is fusion across the facet jointsand disc space.Impression:1. Nonacute CT of the abdomen and pelvis.2. Other chronic incidental findings as above.This final report was electronically signed by Dr Jessee Thornton MD 07/14/20186:27 PMDictated By: JESSEE THORNTONDate: 07/14/2018 18:27 STAT LAB CBC WITH AUTO DIFF 2018-07-14 16:34:00 WBC (test code=WBC) 9.38 10\\S\\3/ul 4.80-10.80 RBC (test code=RBC) 3.71 10\\S\\6/ul 4.70-6.10 Hemoglobin (test code=HGB) 10.1 gm/dl 14.0-18.0 Hematocrit (test code=HCT) 31.0 % 42.0-50.0 MCV (test code=MCV) 83.6 fL 80.0-94.0 MCH (test code=MCH) 27.2 pg 27.0-31.0 MCHC (test code=MCHC) 32.6 gm/dl 33.0-37.0 Platelet (test code=PLT) 221 10\\S\\3/ul 130-400 RDW (test code=RDWVC) 18.4 % 11.5-14.5 MPV (test code=MPV) 9.8 fL 7.4-10.4 NE% (test code=NE) 70.3 % 42.0-75.0 LY% (test code=LY) 12.5 % 13.0-42.0 MO% (test code=MO) 6.9 % 4.0-14.0 EO% (test code=EO) 7.1 % 1.0-3.0 BA% (test code=BA) 3.1 % 1.0-3.0 IG% (test code=IG%) 0.1 % 0.0-0.4 Neutrophils (test code=NEUTR) 82 10\\S\\3/ul 42-75 No previous value was reported. A value of 82 was entered by [email or web address] on 07/14/2018 16:34 Lymphocytes (test code=LYMPH) 7 % 13-42 No previous value was reported. A value of 7 was entered by [email or web address] on 07/14/2018 16:34 Monocytes (test code=MONOS) 2 % 4-14 No previous value was reported. A value of 2 was entered by [email or web address] on 07/14/2018 16:34 Eosinophils (test code=EOS) 5 % 1-3 No previous value was reported. A value of 5 was entered by [email or web address] on 07/14/2018 16:34 Basophils (test code=BASO) 4 % 0-1 No previous value was reported. A value of 4 was entered by [email or web address] on 07/14/2018 16:34 RBC Morphology (test code=RBCMOR) Anisocytosis Hypochromic Microcytic No previous value was reported. A value of Anisocytosis Hypochromic Microcytic was entered by [email or web address] on 07/14/2018 16:34 [id number] WITH [id number] 16:09:00* Test Item Value Reference Range Comments Color (test code=UCOLR) YELLOW Clarity (test code=UCLAR) CLEAR Glucose (test code=UGLUC) NEGATIVE NEGATIVE Bilirubin (test code=UBILI) NEGATIVE NEGATIVE Ketones (test code=UKET) NEGATIVE NEGATIVE Specific [place] (test code=USPGR) 1.010 1.005-1.030 Blood (test code=UBLD) NEGATIVE NEGATIVE PH (test code=UPH) 7.5 4.5-8.0 Protein (test code=UPROT) NEGATIVE NEGATIVE Urobilinogen (test code=U UROB) 0.2 >0.2 Nitrite (test code=UNITR) NEGATIVE NEGATIVE Leukocyte Esterase (test code=ULEUK) NEGATIVE NEGATIVE WBC (test code=WBCUR) 0-5 0-5 RBC (test code=RBCUR) 0-5 0-5 Epithial Cells (test code=U EPI) 0-10 0-10 Bacteria (test code=UBACT) Trace None Seen,Trace [id number] LAB CHEM [id number] 15:23:00* Test Item Value Reference Range Comments Sodium (test code=NA) 134 mmol/l 138-146 Potassium (test code=K) 4.4 mmol/l 3.5-4.9 Chloride (test code=CL) 95 mmol/l 98-109 IONIZED CALCIUM (test code=ICA) 1.13 CO2 (test code=CO2) 30 mmol/l 24-29 Glucose (test code=GLU) 100 mg/dl 70-105 BUN (test code=BUN) 11 mg/dl 6-17 Creatinine (test code=CREA) 0.7 mg/dl 0.6-1.3 [id number] 2 [id number] 07:42:[address] [id number] IMAGING REPORTPatient Name: MIKHAIL LYONSDate of Service: [id number]: 58 Sex: M Order #: 100 Room: ERSDOB: 1960 X-Ray Number: [id number] Record Number: [id number] Hospital Number: [id number] Physician: RAI RAMOSOrdering Physician: ODILON RAMOSUB:History: Abdomen pain.Technique: Single AP abdomen and pelvis projection obtained supine.Findings:The bowel gas pattern is nonobstructive.There are scattered fecal material throughout the colon.There is no evidence of free air.The osseous structures and soft tissues are unremarkable.There are no suspicious or abnormal calcification seen.Impression:Unremarkable single abdomen projection.Electronically Signed By: Cal Majano M.D., 07/06/2018 7:39 AMLegally authenticated by ANA White 2018-07-06 07:39:57ABDOMEN 2 [id number] 07:19:[address] [id number] IMAGING REPORTPatient Name: Madonna LYONS of Service: [id number]: 58 Sex: M Order #: [id number] Room: [facility]: 1960 X-Ray Number: [id number] Record Number: [id number] Hospital Number: [id number] Physician: Sonia HESS Physician: Dequan HESS.History: Abdomen pain.Technique: 3 supine and upright abdominal projections were obtained andreviewed.F indings:There is no specific acute appearing abdominal abnormality.There is no e vidence to suggest obstruction or free air.The osseous structures appear intact. Impression:No specific acute appearing abdominal abnormalities.Electronically Si gned By: Cal Majano M.D., 06/22/2018 7:16 AMLegally authenticated by IQRA White 2018-06-22 07:16:[id number] 06:23:00* Test Item Value Reference Range Comments WBC (test code=WBC) 14.5 K/UL 3.5-10.9 RBC (test code=RBC) 4.64 M/UL 4.3-5.7 HGB (test code=HGB) 12.3 G/DL 13.0-17.9 HCT (test code=HCT) 37.3 % 38-52 MCV (test code=MCV) 80.4 FL 80-98 MCH (test code=MCH) 26.5 PG 28-32 MCHC (test code=MCHC) 33.0 G/DL 32.5-36.5 RDW (test code=RDW) 17.5 % 11.5-14.5 PLT (test code=PLT) 293 K/UL 150-450 MPV (test code=MPV) 9.6 FL 7.4-10.4 MANDIFF (test code=MANDIFF) NO SCAN (test code=SCAN) NO NEUT% (test code=NEUT%) 67.1 % 40-75 LYMPH% (test code=LYMPH%) 15.6 % 24-44 MONO% (test code=MONO%) 8.0 % 0-13 EOS% (test code=EOS%) 4.1 % 0-4 BASO % (test code=BASO%) 4.4 % 0-2 IG (test code=IG) 0 % 0-1 IG% (test code=IG%) 0.8 % 0-1 IG%=Metamyelocytes, Myelocytes, and Promyelocytes. (Immature neutrophils not including "bands".) > 3% IG indicates risk of sepsis NRBC% (test code=NRBC%) 0 /100 WBC ABS NEUT (test code=NEUT) 9.8 K/UL 1.2-7.2 BMP, BASIC METABOLIC [id number] 05:40:00* Test Item Value Reference Range Comments SODIUM (test code=NA) 135 MMOL/L 137-145 K+ (test code=KSERUM) 3.8 MMOL/L 3.5-5.1 PLEASE NOTE NEW REFERENCE RANGE(S) IN EFFECT EFFECTIVE 12/13/2009 - NEW ANALYZER ([employer] 5600) CHLORIDE (test code=CL) 97 MMOL/L 98-107 CO2 (test code=CO2) 28 MMOL/L 22-30 BUN (test code=BUN) 9 MG/DL 9-20 CREA (test code=CREA) 0.7 MG/DL 0.8-1.5 GLUCOSE (test code=GLUCOSE) 98 MG/DL 70-99 Fasting glucose normal <100 MG/DL- [employer] recommendation CALCIUM (test code=CABLOOD) 9.0 MG/DL 8.4-10.2 GFR (test code=GFR) 123 mL/min/1.73m2 A GFR of >90 mL/min/1.73m2 is considered normal. [id number] 03:15:00* Test Item Value Reference Range Comments GLUCOSE (test code=URGLU) NEGATIVE MG/DL NEG-100 BILIRUBN (test code=URBILI) NEGATIVE NEGATIVE KETONE (test code=URKET) NEGATIVE MG/DL NEGATIVE BLOOD (test code=URBLD) NEGATIVE UR PH (test code=URPH) 6.5 5.0-7.5 PROTEIN (test code=URPRO) NEGATIVE MG/DL NEGATIVE NITRITES (test code=URNIT) NEGATIVE NEGATIVE UROBILINGEN (test code=URURO) 0.2 EU/DL 0.2-1.0 LEUKOCYT (test code=URLEU) NEGATIVE NEGATIVE UA COLOR (test code=UA COLOR) YELLOW YELLOW CLARITY (test code=CLARITY) CLEAR CLEAR SP GRAV (test code=URSPGRAV) 1.007 1.000-1.025 UAMICRO (test code=UAMICRO) NO ABDOMEN 2 [id number] 20:40:[address] [id number] IMAGING REPORTPatient Name: Madonna LYONS of Service: [id number]: 58 Sex: M Order #: [id number] [facility] 1960 [facility] Number: [id number] Record Number: [id number] Hospital Number: [id number] Physician: DEXTER HU -Ordering Physician: James BLANCAS 2 views 06/14/2018History: Lower abdominal pain, constipation, leukemiaTechnique: AP upright and supine images were obtained.Comparison: 01/19/2018Findings:Air-fluid levels are scattered in the stomach and some of the bowel loopswithout clearly significant distention. Findings may be due to an elementof ileus or gastroenteritis. Bowel obstruction can be confirmed by thisexam. Some air is present in portions of the descending and transversecolon.No free air.Degenerative changes are again noted in the spine and there are old rightrib fractures.IMPRESSION:Nonspecific bowel findings as discussed. Short interval follow-up may behelpful.Electronically Signed By: Srikanth Gil M.D., 06/14/2018 8:37 PMLegally authenticated by REFUGIO AVERY 2018-06-14 20:37:[id number] 19:50:00* Test Item Value Reference Range Comments GLUCOSE (test code=URGLU) NEGATIVE MG/DL NEG-100 BILIRUBN (test code=URBILI) NEGATIVE NEGATIVE KETONE (test code=URKET) NEGATIVE MG/DL NEGATIVE BLOOD (test code=URBLD) SMALL UR PH (test code=URPH) 8.5 5.0-7.5 PROTEIN (test code=URPRO) NEGATIVE MG/DL NEGATIVE NITRITES (test code=URNIT) NEGATIVE NEGATIVE UROBILINGEN (test code=URURO) 0.2 EU/DL 0.2-1.0 LEUKOCYT (test code=URLEU) NEGATIVE NEGATIVE UA COLOR (test code=UA COLOR) YELLOW YELLOW CLARITY (test code=CLARITY) CLEAR CLEAR SP GRAV (test code=URSPGRAV) 1.002 1.000-1.025 UAMICRO (test code=UAMICRO) YES WBC (test code=URWBC) 4 /HPF 0-5 RBC (test code=URRBC) 19 /HPF 0-2 CASTS (test code=CAST) 0 /LPF 0-3 UR EPI (test code=EPI) 3 /LPF BACTERIA (test code=BACTERIA) NEGATIVE NONE ABDOMEN 2 [id number] 08:06:[address] [id number] IMAGING REPORTPatient Name: Madonna LYONS of Service: [id number]: 57 Sex: M Order #: 100 Room: [facility]: 1960 X-Ray Number: [id number] Record Number: [id number] Hospital Number: [id number] Physician: RAI RAMOSOrdering Physician: CONNIE DAIGLE - TWO VIEWS@06 hours January 19, 2018:CLINICAL HISTORY: Abdominal pain and constipationTECHNIQUE: Supine and erect views were obtained.FINDINGS: There is no evidence of free air, ileus or obstruction. Theintestinal gas pattern is normal. There is no evidence of radiopaquecalculi.IMPRESSION:Normal abdominal examination.An Emergent Report was provided by [facility].Electronically Signed By: Noah Mccracken M.D., 01/19/2018 8:04 Latrice authenticated by TABBY Sherwood 2018-01-19 08:04:[id number] 08:00:00* Test Item Value Reference Range Comments WBC (test code=WBC) 11.5 K/UL 3.5-10.9 RBC (test code=RBC) 4.33 M/UL 4.3-5.7 HGB (test code=HGB) 12.7 G/DL 13.0-17.9 HCT (test code=HCT) 37.1 % 38-52 MCV (test code=MCV) 85.7 FL 80-98 MCH (test code=MCH) 29.3 PG 28-32 MCHC (test code=MCHC) 34.2 G/DL 32.5-36.5 RDW (test code=RDW) 13.8 % 11.5-14.5 PLT (test code=PLT) 288 K/UL 150-450 MPV (test code=MPV) 9.6 FL 7.4-10.4 MANDIFF (test code=MANDIFF) NO SCAN (test code=SCAN) YES NEUT% (test code=NEUT%) 70.3 % 40-75 LYMPH% (test code=LYMPH%) 14.5 % 24-44 MONO% (test code=MONO%) 6.8 % 0-13 EOS% (test code=EOS%) 2.5 % 0-4 BASO % (test code=BASO%) 4.9 % 0-2 IG% (test code=IG%) 1.0 % 0-1 IG%=Metamyelocytes, Myelocytes, and Promyelocytes. (Immature neutrophils not including "bands".) > 3% IG indicates risk of sepsis NRBC% (test code=NRBC%) 0 /100 WBC ABS NEUT (test code=NEUT) 8.1 K/UL 1.2-7.2 [id number] 07:31:00* Test Item Value Reference Range Comments SODIUM (test code=NA) 127 MMOL/L 137-145 K+ (test code=KSERUM) 4.1 MMOL/L 3.5-5.1 PLEASE NOTE NEW REFERENCE RANGE(S) IN EFFECT EFFECTIVE 12/13/2009 - NEW ANALYZER ([employer] 5600) CHLORIDE (test code=CL) 90 MMOL/L 98-107 CO2 (test code=CO2) 28 MMOL/L 22-30 BUN (test code=BUN) 9 MG/DL 9-20 CREA (test code=CREA) 0.7 MG/DL 0.8-1.5 GLUCOSE (test code=GLUCOSE) 95 MG/DL 70-99 Fasting glucose normal <100 MG/DL- [employer] recommendation CALCIUM (test code=CABLOOD) 8.5 MG/DL 8.4-10.2 TOTPROT (test code=TOTPROT) 7.3 G/DL 6.3-8.2 ALBUMIN (test code=ALBSERUM) 4.4 G/DL 3.5-5.0 BILITOT (test code=BILITOT) 1.4 MG/DL 0.2-1.3 AST (test code=AST) 29 U/L 15-46 PHOSALK (test code=PHOSALK) 44 U/L 38-126 ALT (test code=ALT) 35 U/L 13-69 GFR (test code=GFR) 124 mL/min/1.73m2 A GFR of >90 mL/min/1.73m2 is considered normal. [id number] 07:31:00* Test Item Value Reference Range Comments LIPASE (test code=LIPA) 17 U/L 23-300 ABDOMEN 2 [id number] 07:26:00[address] [id number] IMAGING REPORTPatient Name: Madonna LYONS of Service: [id number]: 57 Sex: M Order #: 100 Room: ERSDOB: 1960 X-Ray Number: [id number] Record Number: [id number] Hospital Number: [id number] Physician: JS LEDBETTEROrdering Physician: Maricruz CEBALLOS 2 views 7:00 AMComparisons: 08/23/2017HISTORY: Unable to urinate, abdominal and rectal pain.Findings:Bowel gas pattern is nonspecific, nonobstructive.There is no free air or mass effect.No definite renal or ureteral calcifications are seen overlying the kidneysor expected course of ureters.Impression:No definite acute intra-abdominal abnormality.Electronically Signed By: Justin Blair M.D., 10/02/2017 7:24 AMLegally authenticated by ALICIA CRISTOBAL 2017-10-02 07:24:[id number] 07:23:00* Test Item Value Reference Range Comments GLUCOSE (test code=URGLU) NEGATIVE MG/DL NEG-100 BILIRUBN (test code=URBILI) NEGATIVE NEGATIVE KETONE (test code=URKET) NEGATIVE MG/DL NEGATIVE BLOOD (test code=URBLD) NEGATIVE UR PH (test code=URPH) 7.0 5.0-7.5 PROTEIN (test code=URPRO) NEGATIVE MG/DL NEGATIVE NITRITES (test code=URNIT) NEGATIVE NEGATIVE UROBILINGEN (test code=URURO) 0.2 EU/DL 0.2-1.0 LEUKOCYT (test code=URLEU) NEGATIVE NEGATIVE UA COLOR (test code=UA COLOR) YELLOW YELLOW CLARITY (test code=CLARITY) CLEAR CLEAR SP GRAV (test code=URSPGRAV) <=1.005 1.000-1.025 UAMICRO (test code=UAMICRO) NO CT ABDOMEN/PELVIS [id number] 07:30:[address] [id number] IMAGING REPORTPatient Name: Madonna LYONS of Service: [id number]: 57 Sex: M Order #: [id number] Room: [facility]: 1960 X-Ray Number: [id number] Record Number: [id number] Hospital Number: [id number] Physician: ROXANE CEBALLOSOrdering Physician: STONE YAN abdomen and pelvis.History: Rectal pain.Technique: IV contrast enhanced CT axial images of the abdomen and pelviswith sagittal and coronal reformatted images were reviewed.This CT exam was performed using one or more of the following dosereduction techniques: Au tomated exposure control, adjustment of the MAand/or KV according to patient siz e or use of iterative reconstructiontechnique.Comparison: None.Findings:Images o f the lower lungs and mediastinum demonstrate no specific defects.The solid larg e organs of the upper abdomen appear focally normal.The gallbladder appears norm al.There is no significant retroperitoneal adenopathy or fluid collectionsdepict ed.Small bowel loops appear normal.Large bowel loops demonstrate only scattered fecal debris.The appendix is not identified.The urinary bladder contains a Botello catheter. There is no pelvic freefluid seen.Impression:No specific acute appear ing abdominal abnormalities.Electronically Signed By: Cal Majano M.D., 7:27 AMLegally authenticated by ANA White 2017-09-21 07:27:55 BLOOD GAS [id number] 00:54:00* Test Item Value Reference Range Comments SITE (test code=SITE) LRA SITE ALLEN (test code=ALLENS) POSITIVE O2 EQUIP (test code=O2 EQUIP) ROOM AIR O2-DEVICE FIO2 (test code=FIO2) 21 % PH (test code=BGPH) 7.39 7.35-7.45 PCO2 (test code=PCO2) 47 MMHG 34.0-45.0 PO2 (test code=PO2) 80 MMHG 84-92 HCO3 (test code=HCO3) 28.5 mmol/L 22.0-26.0 BE (test code=BE) 2.8 mmol/L -2.0-2.0 THB (test code=THB) 12.8 G/DL 13.5-18 % 02 HB (test code=ABGSAT) 93.2 % 96.0-100.0 %COHB (test code=BGCO) 4.5 % <1.5 % MET HB (test code=%MET HB) 0.9 % 0.4-1.5 CAO2 (test code=CAO2) 16.8 VOL% 17.6-24.3 PF/RATIO (test code=PF/RATIO) 381.0 BG LAB ARTERIAL [id number] 00:54:00* Test Item Value Reference Range Comments SITE (test code=SITE) LRA SITE NONIS (test code=ALLENS) POSITIVE BGLAC (test code=BGLAC) 6.0 mg/dL 5.0-18.0 HEPATITIS C ANTIBODY [id number] 00:39:00* Test Item Value Reference Range Comments SCRN HCV (test code=SCRN HCV) REACTIVE NEGATIVE PREVIOUSLY KNOWN REACTIVE Hepatitis C Antibody test is for screening purposes only. All reactives will be confirmed by additional testing. PREVIOUSLY KNOWN REACTIVEER SCREEN FOR HIV 00:39:00* Test Item Value Reference Range Comments HIV 1/2 AB (test code=SCRN HIV) NONREACTIVE NONREACTIVE This test is used for SCREENING purposes only. All reactive results are prelimenary and confirmation results will follow. [id number] 23:05:00* Test Item Value Reference Range Comments SODIUM (test code=NA) 136 MMOL/L 137-145 K+ (test code=KSERUM) 3.9 MMOL/L 3.5-5.1 PLEASE NOTE NEW REFERENCE RANGE(S) IN EFFECT EFFECTIVE 12/13/2009 - NEW ANALYZER ([employer] 56[employer]) CHLORIDE (test code=CL) 93 MMOL/L 98-107 CO2 (test code=CO2) 31 MMOL/L 22-30 BUN (test code=BUN) 9 MG/DL 9-20 CREA (test code=CREA) 0.7 MG/DL 0.8-1.5 GLUCOSE (test code=GLUCOSE) 94 MG/DL 70-99 Fasting glucose normal <100 MG/DL- [employer] recommendation CALCIUM (test code=CABLOOD) 8.6 MG/DL 8.4-10.2 TOTPROT (test code=TOTPROT) 7.1 G/DL 6.3-8.2 ALBUMIN (test code=ALBSERUM) 4.2 G/DL 3.5-5.0 BILITOT (test code=BILITOT) 0.9 MG/DL 0.2-1.3 AST (test code=AST) 46 U/L 15-46 PHOSALK (test code=PHOSALK) 44 U/L 38-126 ALT (test code=ALT) 57 U/L 13-69 GFR (test code=GFR) 124 mL/min/1.73m2 A GFR of >90 mL/min/1.73m2 is considered normal. [id number] 23:05:00* Test Item Value Reference Range Comments LIPASE (test code=LIPA) 18 U/L 23-300 [id number] 22:56:00* Test Item Value Reference Range Comments WBC (test code=WBC) 16.0 K/UL 3.5-10.9 RBC (test code=RBC) 4.53 M/UL 4.3-5.7 HGB (test code=HGB) 13.1 G/DL 13.0-17.9 HCT (test code=HCT) 39.2 % 38-52 MCV (test code=MCV) 86.5 FL 80-98 MCH (test code=MCH) 28.9 PG 28-32 MCHC (test code=MCHC) 33.4 G/DL 32.5-36.5 RDW (test code=RDW) 14.3 % 11.5-14.5 PLT (test code=PLT) 276 K/UL 150-450 MPV (test code=MPV) 9.5 FL 7.4-10.4 MANDIFF (test code=MANDIFF) YES SCAN (test code=SCAN) NO NEUT% (test code=NEUT%) 80 % 40-75 LYMPH% (test code=LYMPH%) 9 % 24-44 MONO% (test code=MONO%) 4 % 0-13 BASO % (test code=BASO%) 7 % 0-2 NRBC% (test code=NRBC%) 0 /100 WBC PLT-EST (test code=PLT-EST) NORMAL NORMAL ABS NEUT (test code=NEUT) 11.4 K/UL 1.2-7.2 [id number] 22:38:00* Test Item Value Reference Range Comments GLUCOSE (test code=URGLU) NEGATIVE MG/DL NEG-100 BILIRUBN (test code=URBILI) NEGATIVE NEGATIVE KETONE (test code=URKET) NEGATIVE MG/DL NEGATIVE BLOOD (test code=URBLD) LARGE UR PH (test code=URPH) 6.5 5.0-7.5 PROTEIN (test code=URPRO) NEGATIVE MG/DL NEGATIVE NITRITES (test code=URNIT) NEGATIVE NEGATIVE UROBILINGEN (test code=URURO) 0.2 EU/DL 0.2-1.0 LEUKOCYT (test code=URLEU) NEGATIVE NEGATIVE UA COLOR (test code=UA COLOR) YELLOW YELLOW CLARITY (test code=CLARITY) CLEAR CLEAR SP GRAV (test code=URSPGRAV) 1.010 1.000-1.025 UAMICRO (test code=UAMICRO) YES WBC (test code=URWBC) 9 /HPF 0-5 RBC (test code=URRBC) 40 /HPF 0-2 UR EPI (test code=EPI) 6 /LPF BACTERIA (test code=BACTERIA) NONE NONE ABDOMEN 2 [id number] 07:36:[address] [id number] IMAGING REPORTPatient Name: Madonna LYONS of Service: [id number]: 57 Sex: M Order #: 100 Room: ERSDOB: 1960 X-Ray Number: [id number] Record Number: [id number] Hospital Number: [id number] Physician: DEXTER HU -Ordering Physician: Maricruz CEBALLOS 2 views 08/23/2017History: Abdomen and rectal pain, leukemia, colitisTechnique: AP upright and supine images were obtained.Comparison: 08/18/2017Findings:Bowel gas pattern is normal with some stool scattered in the colon. Thereis no free air. Bones and soft tissues show no acute process. Degenerativechanges are again noted in the lower lumbar spine. Old right 10th ribfracture deformity is also seen.Impression:No acute process with chronic appearing findings as discussed.The study was performed on an emergent basis and preliminary report faxedto the Emergency Department by the [facility] service nearthe time of the exam.Electronically Signed By: Srikanth Gil M.D., 08/24/2017 7:33 AMLegally authenticated by REFUGIO AVERY 2017-08-24 07:33:38ABDOMEN 2 [id number] 08:38:[address] [id number] IMAGING REPORTPatient Name: Madonna LYONS of Service: [id number]: 57 Sex: M Order #: [id number] Room: ERSDOB: 1960 X-Ray Number: [id number] Record Number: [id number] Hospital Number: [id number] Physician: ROXANE CEBALLOSOrdering Physician: Tomasz LOZANO 2 views 08/18/2017 at 8:31 AMHistory: Constipation, rectal pain. Prior colon surgery and leukemia Technique: AP upright and supine images were obtained.Comparison: 08/12/2017Findin gs:Bowel gas pattern is normal with some stool scattered in the colon. Thereis n o free air. Bones and soft tissues are stable with degenerative changesnoted in the lower lumbar spine.IMPRESSION:No clearly suspicious acute process or signifi cant adverse interval change.Electronically Signed By: Srikanth Gil M.D., 08/19/19 18 8:35 AMLegally authenticated by REFUGIO AVERY 2017-08-18 08:35:41ABDOMEN 1 VIEW 2017-08-12 07:40:00BAWilliam [place] [id number] IMAGING REPORTPatient Name: Madonna LYONS of Service: [id number]: 57 Sex: M Order #: [id number] Room: ERSDOB: 1960 X-Ray Number: [id number] Record Number: [id number] Hospital Number: [id number] Physician: Earlene HAND Physician: JEIMY HAND 2 VIEWS:CLINICAL HISTORY: Constipation; rectal pain and bloating; history ofleukemia and prior colon surgeryTECHNIQUE: Supine and erect views were obtainedFINDINGS: The gas pattern is unremarkable. There is no evidence of freeair, ileus or obstruction.There is no evidence of a rectal impaction.Impression:1. No acute changes are demonstrated.2. A preliminary report was provided by [facility].Electronically Signed By: Noah Mccracken M.D., 08/12/2017 7:37 AMLegally authenticated by TABBY Sherwood 2017-08-12 07:37:43ABDOMEN 2 [id number] 08:07:00[address] [id number] IMAGING REPORTPatient Name: Madonna LYONS of Service: [id number]: 57 Sex: M Order #: 100 Room: ERSDOB: 1960 X-Ray Number: [id number] Record Number: [id number] Hospital Number: [id number] Physician: KYLEIGH CASTELLANOS Physician: Marylu LEE 2 views at 6:30 AMHISTORY: Abdominal pain, constipation.Comparisons: 08/05/2017FINDINGS:There is a moderate amount of colonic fecal loading within the colon.Amount of stool has decreased compared to prior exam.There is no evidence for small bowel obstruction, free air or mass effect.There are no radiopaque foreign bodies.No definite suspicious calcifications overlying the kidneys or ureters areseen.IMPRESSION:Colonic fecal loading which is improving, without acute abnormalityotherwise.EMERGENT INTERPRETATION PROVIDED BY [facility].Electronically Signed By: Justin Blair M.D., 08/09/2017 8:04 AMLegally authenticated by ALICIA ROY 2017-08-09 08:04:58ABDOMEN 1 [id number] 15:28:00BAPT[address] [id number] IMAGING REPORTPatient Name: Madonna LYONS of Service: [id number]: 57 Sex: M Order #: 1000 Room: [facility] 5NDOB: 1960 X-Ray Number: [id number] Record Number: [id number] Hospital Number: [id number] Physician: ARABELLA GAN POrdermalik Physician: ARABELLA GAN ONE VIEW:CLINICAL HISTORY: Abdominal pain with nauseaTECHNIQUE: One AP viewFINDINGS: Gas pattern is unremarkable.There is moderate fecal residue incidentally noted in the transverse colon.There is no evidence of radiopaque calculi.There is forrest dence of previous bony fusion of the lower lumbar spine.Impression: No acute angie nges are demonstrated.Electronically Signed By: Noah Mccracken M.D., 2017 3:25 PMLegally authenticated by TABBY Sherwood 2017-08-05 15:25:38CMP 2017-08-05 06:09:00* Test Item Value Reference Range Comments SODIUM (test code=NA) 130 MMOL/L 137-145 K+ (test code=KSERUM) 4.1 MMOL/L 3.5-5.1 PLEASE NOTE NEW REFERENCE RANGE(S) IN EFFECT EFFECTIVE 12/13/2009 - NEW ANALYZER (Sanitors 5600) CHLORIDE (test code=CL) 93 MMOL/L 98-107 CO2 (test code=CO2) 30 MMOL/L 22-30 BUN (test code=BUN) 5 MG/DL 9-20 CREA (test code=CREA) 0.7 MG/DL 0.8-1.5 GLUCOSE (test code=GLUCOSE) 117 MG/DL 70-99 Fasting glucose normal <100 MG/DL- [employer] recommendation CALCIUM (test code=CABLOOD) 7.9 MG/DL 8.4-10.2 TOTPROT (test code=TOTPROT) 5.6 G/DL 6.3-8.2 ALBUMIN (test code=ALBSERUM) 3.2 G/DL 3.5-5.0 BILITOT (test code=BILITOT) 0.5 MG/DL 0.2-1.3 AST (test code=AST) 28 U/L 15-46 PHOSALK (test code=PHOSALK) 42 U/L 38-126 ALT (test code=ALT) 35 U/L 13-69 GFR (test code=GFR) 124 mL/min/1.73m2 A GFR of >90 mL/min/1.73m2 is considered normal. [id number] 06:09:00* Test Item Value Reference Range Comments LIPASE (test code=LIPA) 250 U/L 23-300 [id number] 05:49:00* Test Item Value Reference Range Comments WBC (test code=WBC) 11.7 K/UL 3.5-10.9 RBC (test code=RBC) 3.56 M/UL 4.3-5.7 HGB (test code=HGB) 10.6 G/DL 13.0-17.9 HCT (test code=HCT) 32.2 % 38-52 MCV (test code=MCV) 90.4 FL 80-98 MCH (test code=MCH) 29.8 PG 28-32 MCHC (test code=MCHC) 32.9 G/DL 32.5-36.5 RDW (test code=RDW) 15.9 % 11.5-14.5 PLT (test code=PLT) 247 K/UL 150-450 MPV (test code=MPV) 10.1 FL 7.4-10.4 MANDIFF (test code=MANDIFF) YES SCAN (test code=SCAN) NO NEUT% (test code=NEUT%) 61 % 40-75 LYMPH% (test code=LYMPH%) 21 % 24-44 MONO% (test code=MONO%) 3 % 0-13 EOS% (test code=EOS%) 8 % 0-4 BASO % (test code=BASO%) 3 % 0-2 BAND (test code=BAND) 1 META (test code=META) 2 RLYMP (test code=RLYMP) 1 NRBC% (test code=NRBC%) 0 /100 WBC PLT-EST (test code=PLT-EST) NORMAL NORMAL ABS NEUT (test code=NEUT) 5.7 K/UL 1.2-7.2 [id number] 21:08:00* Test Item Value Reference Range Comments GLUCOSE (test code=URGLU) NEGATIVE MG/DL NEG-100 BILIRUBN (test code=URBILI) NEGATIVE NEGATIVE KETONE (test code=URKET) NEGATIVE MG/DL NEGATIVE BLOOD (test code=URBLD) NEGATIVE UR PH (test code=URPH) 7.0 5.0-7.5 PROTEIN (test code=URPRO) NEGATIVE MG/DL NEGATIVE NITRITES (test code=URNIT) NEGATIVE NEGATIVE UROBILINGEN (test code=URURO) 0.2 EU/DL 0.2-1.0 LEUKOCYT (test code=URLEU) NEGATIVE NEGATIVE UA COLOR (test code=UA COLOR) YELLOW YELLOW CLARITY (test code=CLARITY) CLEAR CLEAR SP GRAV (test code=URSPGRAV) 1.011 1.000-1.025 UAMICRO (test code=UAMICRO) NO [id number] 20:44:00* Test Item Value Reference Range Comments SODIUM (test code=NA) 139 MMOL/L 137-145 K+ (test code=KSERUM) 4.2 MMOL/L 3.5-5.1 PLEASE NOTE NEW REFERENCE RANGE(S) IN EFFECT EFFECTIVE 12/13/2009 - NEW ANALYZER (ChoicePassS 5600) CHLORIDE (test code=CL) 93 MMOL/L 98-107 CO2 (test code=CO2) 32 MMOL/L 22-30 BUN (test code=BUN) 7 MG/DL 9-20 CREA (test code=CREA) 0.8 MG/DL 0.8-1.5 GLUCOSE (test code=GLUCOSE) 90 MG/DL 70-99 Fasting glucose normal <100 MG/DL- [employer] recommendation CALCIUM (test code=CABLOOD) 9.3 MG/DL 8.4-10.2 TOTPROT (test code=TOTPROT) 7.6 G/DL 6.3-8.2 ALBUMIN (test code=ALBSERUM) 4.7 G/DL 3.5-5.0 BILITOT (test code=BILITOT) 1.1 MG/DL 0.2-1.3 AST (test code=AST) 44 U/L 15-46 PHOSALK (test code=PHOSALK) 52 U/L 38-126 ALT (test code=ALT) 41 U/L 13-69 GFR (test code=GFR) 106 mL/min/1.73m2 A GFR of >90 mL/min/1.73m2 is considered normal. [id number] 20:10:00* Test Item Value Reference Range Comments WBC (test code=WBC) 13.2 K/UL 3.5-10.9 RBC (test code=RBC) 4.62 M/UL 4.3-5.7 HGB (test code=HGB) 13.7 G/DL 13.0-17.9 HCT (test code=HCT) 40.2 % 38-52 MCV (test code=MCV) 87.0 FL 80-98 MCH (test code=MCH) 29.7 PG 28-32 MCHC (test code=MCHC) 34.1 G/DL 32.5-36.5 RDW (test code=RDW) 15.8 % 11.5-14.5 PLT (test code=PLT) 322 K/UL 150-450 MPV (test code=MPV) 9.8 FL 7.4-10.4 MANDIFF (test code=MANDIFF) NO SCAN (test code=SCAN) NO NEUT% (test code=NEUT%) 61.6 % 40-75 LYMPH% (test code=LYMPH%) 14.7 % 24-44 MONO% (test code=MONO%) 10.2 % 0-13 EOS% (test code=EOS%) 3.2 % 0-4 BASO % (test code=BASO%) 6.4 % 0-2 IG% (test code=IG%) 3.9 % 0-1 IG%=Metamyelocytes, Myelocytes, and Promyelocytes. (Immature neutrophils not including "bands".) > 3% IG indicates risk of sepsis NRBC% (test code=NRBC%) 0 /100 WBC ABS NEUT (test code=NEUT) 8.2 K/UL 1.2-7.2 ABDOMEN 1 [id number] 20:09:00BA[address] [id number] IMAGING REPORTPatient Name: Madonna LYONS of Service: [id number]: 57 Sex: M Order #: 100 Room: [facility] 5NDOB: 1960 X-Ray Number: [id number] Record Number: [id number] Hospital Number: [id number] Physician: ARABELLA GAN POrdering Physician: ARABELLA GAN 1 VIEW, 08/03/2017 7:55 PM:History: abd pain/rectal pain. . Abdominal pain with rectal pain.Comparison: 08/01/2017Technique: 1 view abdomenFindings:The bowel gas pattern is nonobstructive. There is gas and stool throughoutthe colon. There is no evidence of free intra-abdominal air. There is noevidence of organomegaly or abnormal intra-abdominal calcifications.Impression:Nonobstructive bowel gas pat tern without evidence of free air.Electronically Signed By: Robert Blank, 08/03/2017 8:06 PMLegally authenticated by PENNY CORTES 2017-08-03 20:06:47 ABDOMEN 2 [id number] 16:59:[address] [id number] IMAGING REPORTPatient Name: Madonna LYONS of Service: [id number]: 57 Sex: M Order #: 100 Room: ERSDOB: 1960 X-Ray Number: [id number] Record Number: [id number] Hospital Number: [id number] Physician: Sonia HESS Physician: MARICRUZ CEBALLOS 2 VIEWS, 08/01/2017 8:20 AM:History: ABD PAIN WITHOUT FEVER. . Abdominal painComparison: 07/13/2017Technique: 2 view abdomenFindings:The bowel gas pattern is nonobstructive. There is no evidence of freeintra-abdominal air. There is no evidence of organomegaly or abnormalintra- abdominal calcifications. Lucencies over the upper abdomenbilaterally are likely artifactual.Impression:Nonobstructive bowel gas pattern without evidence of free air.Electronically Signed By: Gerardo Farrar M.D., 08/02/2017 4:56 PMLegally authenticated by PENNY CORTES 2017-08-02 16:56:52ABDOMEN 2 VIEWS 2017-07-14 07:32:00[address] [id number] IMAGING REPORTPatient Name: Madonna LYONS of Service: [id number]: 57 Sex: M Order #: [id number] Room: [facility]: 1960 X-Ray Number: [id number] Record Number: [id number] Hospital Number: [id number] Physician: Earlene HAND Physician: TERESA MONTEMAYOR 2 VIEWS, 07/13/2017 10:56 PM:History: Constipation. . Abdominal pain.Comparison: None.Technique: 2 view abdomenFindings:The bowel gas pattern is nonobstructive. There is no evidence of freeintra-abdominal air. There is no evidence of organomegaly or abnormalintra-abdominal calcifications.Impression:Nonobstructive bowel gas pattern without evidence of free air.Electronically Signed By: Gerardo Farrar M.D., 07/14/2017 7:30 AMLegally authenticated by PENNY CORTES 2017-07-14 07:30:03CT ABDOMEN/PELVIS [id number] 07:29:00[address] [id number] IMAGING REPORTPatient Name: MIKHAIL LYONSEtta of Service: [id number]: 57 Sex: M Order #: 900 Room: [facility]: 1960 X-Ray Number: [id number] Record Number: [id number] Hospital Number: [id number] Physician: Earlene HAND Physician: TERESA MONTEMAYOR abdomen and pelvis.History: Nausea, abdominal pain.Technique: IV contrast enhanced CT axial images of the abdomen and pelviswith sagittal and coronal reformatted images were reviewed.This CT exam was performed using one or more of the following dosereduction techniques: Automated exposure control, adjustment of the MAand/or KV according to patient size or use of iterative reconstructiontechnique.Comparison: None. Findings:Images of the lower lungs and mediastinum demonstrate no specific defec ts.The solid large organs of the upper abdomen appear focally normal.The gallbla dder appears normal.There is no significant retroperitoneal adenopathy or fluid collectionsdepicted.Small bowel loops appear normal.Large bowel loops demonstrat e only scattered fecal debris and scattereddiverticulosis, most prominent in the sigmoid colon..The appendix is retrocecal and appears normal.The urinary bladder appears normal. There is no pelvic free fluid seen.There are severe lower lumbar degenerative changes and evidence of priorlumbar fusion with hardware removal. There is marked L5 on [id number].Impression:No specific acute appearing abdominal abnormalities.Electronically Signed By: Cal Majano M.D., 2017 7:26 AMLegally authenticated by NAA White 2017-07-14 07:26:43CMP 2017-07-14 00:30:00* Test Item Value Reference Range Comments SODIUM (test code=NA) 137 MMOL/L 137-145 K+ (test code=KSERUM) 4.9 MMOL/L 3.5-5.1 PLEASE NOTE NEW REFERENCE RANGE(S) IN EFFECT EFFECTIVE 12/13/2009 - NEW ANALYZER (Sanitors 5600) CHLORIDE (test code=CL) 97 MMOL/L 98-107 CO2 (test code=CO2) 31 MMOL/L 22-30 BUN (test code=BUN) 7 MG/DL 9-20 CREA (test code=CREA) 0.7 MG/DL 0.8-1.5 GLUCOSE (test code=GLUCOSE) 92 MG/DL 70-99 Fasting glucose normal <100 MG/DL- [employer] recommendation CALCIUM (test code=CABLOOD) 9.3 MG/DL 8.4-10.2 TOTPROT (test code=TOTPROT) 7.6 G/DL 6.3-8.2 ALBUMIN (test code=ALBSERUM) 4.5 G/DL 3.5-5.0 BILITOT (test code=BILITOT) 1.2 MG/DL 0.2-1.3 AST (test code=AST) 29 U/L 15-46 PHOSALK (test code=PHOSALK) 51 U/L 38-126 ALT (test code=ALT) 41 U/L 13-69 GFR (test code=GFR) 124 mL/min/1.73m2 A GFR of >90 mL/min/1.73m2 is considered normal. [id number] 00:30:00* Test Item Value Reference Range Comments LIPASE (test code=LIPA) 54 U/L 23-300 [id number] 00:28:00* Test Item Value Reference Range Comments WBC (test code=WBC) 18.6 K/UL 3.5-10.9 RBC (test code=RBC) 4.71 M/UL 4.3-5.7 HGB (test code=HGB) 13.8 G/DL 13.0-17.9 HCT (test code=HCT) 40.1 % 38-52 MCV (test code=MCV) 85.1 FL 80-98 MCH (test code=MCH) 29.3 PG 28-32 MCHC (test code=MCHC) 34.4 G/DL 32.5-36.5 RDW (test code=RDW) 16.3 % 11.5-14.5 PLT (test code=PLT) 296 K/UL 150-450 MPV (test code=MPV) 9.3 FL 7.4-10.4 MANDIFF (test code=MANDIFF) YES SCAN (test code=SCAN) NO NEUT% (test code=NEUT%) 74 % 40-75 LYMPH% (test code=LYMPH%) 12 % 24-44 MONO% (test code=MONO%) 1 % 0-13 EOS% (test code=EOS%) 2 % 0-4 BASO % (test code=BASO%) 11 % 0-2 NRBC% (test code=NRBC%) 0 /100 WBC PLT-EST (test code=PLT-EST) NORMAL NORMAL ABS NEUT (test code=NEUT) 12.6 K/UL 1.2-7.2 [id number] 00:11:00* Test Item Value Reference Range Comments GLUCOSE (test code=URGLU) NEGATIVE MG/DL NEG-100 BILIRUBN (test code=URBILI) NEGATIVE NEGATIVE KETONE (test code=URKET) NEGATIVE MG/DL NEGATIVE BLOOD (test code=URBLD) NEGATIVE UR PH (test code=URPH) 8.0 5.0-7.5 PROTEIN (test code=URPRO) NEGATIVE MG/DL NEGATIVE NITRITES (test code=URNIT) NEGATIVE NEGATIVE UROBILINGEN (test code=URURO) 0.2 EU/DL 0.2-1.0 LEUKOCYT (test code=URLEU) NEGATIVE NEGATIVE UA COLOR (test code=UA COLOR) YELLOW YELLOW CLARITY (test code=CLARITY) CLOUDY CLEAR SP GRAV (test code=URSPGRAV) 1.010 1.000-1.025 UAMICRO (test code=UAMICRO) YES WBC (test code=URWBC) 1 /HPF 0-5 RBC (test code=URRBC) 1 /HPF 0-2 UR EPI (test code=EPI) 10 /LPF CT ABDOMEN/PELVIS [id number] 07:34:00[address] [id number] IMAGING REPORTPatient Name: Jonny LYONSte of Service: 91-27-1716Ynz: 57 Sex: M Order #: 700 Room: ERSDOB: 1960 X-Ray Number: [id number] Record Number: [id number] Hospital Number: [id number] Physician: Sonia HESS Physician: JUAN DIEGO DAIGLE abdomen and pelvis with contrast 2:45 AMHistory: Abdominal and back pain.Comparisons: 12/21/2016This CT exam was performed using one or more of the following dosereduction techniques: Automated exposure control, adjustment of the MAand/or KV according to patient size or use of iterative reconstructiontechnique.FINDINGS:There is a moderate amount of colonic fecal loading.Solid abdominal viscera demonstrate no mass lesions or l acerations.Both kidneys enhance symmetrically. There is no hydronephrosis.There is no free air or free fluid. There are no abnormal fluidcollections.There is no CT evidence for appendicitis, diverticulitis or pancreatitis.There is no small bowel obstruction detected.There is no obvious enlarged adenopathy.There are pos tsurgical changes of the lower lumbar spine.IMPRESSION:No acute intra-abdominal or intrapelvic abnormality is detected.Colonic fecal loading.EMERGENT INTERPR ETATION PROVIDED BY [facility].Electronically Signed By: Nancy Blair M.D., 07/08/2017 7:32 AMLegally authenticated by ALICIA CRISTOBAL 2017 07:32:27THORACIC SPINE [id number] 07:34:00BAWilliam [place] [id number] IMAGING REPORTPatient Name: Madonna LYONS of Service: [id number]: 57 Sex: M Order #: 200 [facility] 1960 [facility] Number: [id number] Record Number: [id number] Hospital Number: [id number] Physician: Catina HESSing Physician: BEAU DAIGLEThoracic spine 3 views 07/08/2017HISTORY: Back painCOMPARISON: Chest x-ray of 10/13/2014Mild degenerative changes are noted throughout the spine. Qhsk-dc-ojnovjuhlcehxfteycu deformities at T5, 8 and 9 appear chronic. The compressiondeformity at T5 is more pronounced than on the prior exam.No definite acute fracture or significant subluxation.No other acute findings.The study was performed on an emergent basis and preliminary report faxedto the Emergency Department by the [facility] service nearthe time of the exam.Electronically Signed By: Srikanth Gil M.D., 07/08/2017 7:32 A MLegally authenticated by REFUGIO AVERY 2017-07-08 07:32:38ABDOMEN 2 VIEWS 2017-07-08 07:33:00[place] [id number] IMAGING REPORTPatient Name: Madonna LYONS of Service: [id number]: 57 Sex: M Order #: 100 Room: ERSDOB: 1960 X-Ray Number: [id number] Record Number: [id number] Hospital Number: [id number] Physician: JOB HESSOrdering Physician: Connie DAIGLE one view 07/08/2017 at 12:55 AMHistory: Abdomen and rectal pain, back painComparison: 07/03/2017Stool is present throughout the colon. No clear bowel obstruction. There isno definite free air. Bones and soft tissues are unremarkable. Mild tomoderate degenerative changes are noted throughout the spine.Impression:Bsah-gv-seaxtigd fecal stasis.The study was performed on an emergent basis and preliminary report faxedto the Emergency Department by the [facility] service nearthe time of the exam.Electronically Signed By: Srikanth Gil M.D., 07/08/2017 7:30 AMLegally authenticated by REFUGIO AVERY 2017-07-08 07:30:44BMP, BASIC METABOLIC [id number] 02:14:00* Test Item Value Reference Range Comments SODIUM (test code=NA) 138 MMOL/L 137-145 K+ (test code=KSERUM) 4.7 MMOL/L 3.5-5.1 PLEASE NOTE NEW REFERENCE RANGE(S) IN EFFECT EFFECTIVE 12/13/2009 - NEW ANALYZER (VITROS 5600) CHLORIDE (test code=CL) 94 MMOL/L 98-107 CO2 (test code=CO2) 29 MMOL/L 22-30 BUN (test code=BUN) 7 MG/DL 9-20 CREA (test code=CREA) 0.7 MG/DL 0.8-1.5 GLUCOSE (test code=GLUCOSE) 100 MG/DL 70-99 Fasting glucose normal <100 MG/DL- [employer] recommendation CALCIUM (test code=CABLOOD) 9.3 MG/DL 8.4-10.2 GFR (test code=GFR) 124 mL/min/1.73m2 A GFR of >90 mL/min/1.73m2 is considered normal. [id number] 02:13:00* Test Item Value Reference Range Comments WBC (test code=WBC) 23.0 K/UL 3.5-10.9 RBC (test code=RBC) 4.71 M/UL 4.3-5.7 HGB (test code=HGB) 13.7 G/DL 13.0-17.9 HCT (test code=HCT) 41.4 % 38-52 MCV (test code=MCV) 87.9 FL 80-98 MCH (test code=MCH) 29.1 PG 28-32 MCHC (test code=MCHC) 33.1 G/DL 32.5-36.5 RDW (test code=RDW) 17.2 % 11.5-14.5 PLT (test code=PLT) 338 K/UL 150-450 MPV (test code=MPV) 11.0 FL 7.4-10.4 MANDIFF (test code=MANDIFF) NO SCAN (test code=SCAN) YES NEUT% (test code=NEUT%) 54.5 % 40-75 LYMPH% (test code=LYMPH%) 13.8 % 24-44 MONO% (test code=MONO%) 7.1 % 0-13 EOS% (test code=EOS%) 6.3 % 0-4 BASO % (test code=BASO%) 8.4 % 0-2 IG% (test code=IG%) 9.9 % 0-1 IG%=Metamyelocytes, Myelocytes, and Promyelocytes. (Immature neutrophils not including "bands".) > 3% IG indicates risk of sepsis NRBC% (test code=NRBC%) 0 /100 WBC PLT-EST (test code=PLT-EST) NORMAL NORMAL ANISOCYTOISIS (test code=ANIS) 2+ ABS NEUT (test code=NEUT) 12.6 K/UL 1.2-7.2 [id number] 02:04:00* Test Item Value Reference Range Comments GLUCOSE (test code=URGLU) NEGATIVE MG/DL NEG-100 BILIRUBN (test code=URBILI) NEGATIVE NEGATIVE KETONE (test code=URKET) NEGATIVE MG/DL NEGATIVE BLOOD (test code=URBLD) NEGATIVE UR PH (test code=URPH) 7.5 5.0-7.5 PROTEIN (test code=URPRO) NEGATIVE MG/DL NEGATIVE NITRITES (test code=URNIT) NEGATIVE NEGATIVE UROBILINGEN (test code=URURO) 0.2 EU/DL 0.2-1.0 LEUKOCYT (test code=URLEU) NEGATIVE NEGATIVE UA COLOR (test code=UA COLOR) YELLOW YELLOW CLARITY (test code=CLARITY) CLOUDY CLEAR SP GRAV (test code=URSPGRAV) 1.009 1.000-1.025 UAMICRO (test code=UAMICRO) YES WBC (test code=URWBC) 1 /HPF 0-5 RBC (test code=URRBC) 1 /HPF 0-2 CASTS (test code=CAST) 0 /LPF 0-3 UR EPI (test code=EPI) 1 /LPF BACTERIA (test code=BACTERIA) NEGATIVE NONE ABDOMEN 2 [id number] 07:28:00BAPT[address] [id number] IMAGING REPORTPatient Name: MIKHAIL LYONSDate of Service: [id number]: 57 Sex: M Order #: 100 [facility] 1960 X-Ray Number: [id number] Record Number: [id number] Hospital Number: [id number] Physician: RAI RAMOSOrdering Physician: Rakel GRANADOS 2 views 12:00 AMHistory: Constipation, abdominal pain.Findings:Bowel gas pattern is nonspecific, nonobstructive.There is no free air or mass effect.No definite renal or ureteral calcifications are seen overlying the kidneysor expected course of ureters.Impression:No definite acute intra-abdominal abnormality.EMERGENT INTERPRETATION PROVIDED BY [facility].Electronically Signed By: Justin Blair M.D., 07/03/2017 7:26 AMLegally authenticated by ALICIA CRISTOBAL 2017-07-03 07:26:25Ivy 2017-07-03 03:36:00* Test Item Value Reference Range Comments WBC (test code=WBC) 27.8 K/UL 3.5-10.9 RBC (test code=RBC) 4.62 M/UL 4.3-5.7 HGB (test code=HGB) 13.2 G/DL 13.0-17.9 HCT (test code=HCT) 40.2 % 38-52 MCV (test code=MCV) 87.0 FL 80-98 MCH (test code=MCH) 28.6 PG 28-32 MCHC (test code=MCHC) 32.8 G/DL 32.5-36.5 RDW (test code=RDW) 17.0 % 11.5-14.5 PLT (test code=PLT) 341 K/UL 150-450 MPV (test code=MPV) 9.8 FL 7.4-10.4 MANDIFF (test code=MANDIFF) YES SCAN (test code=SCAN) NO NEUT% (test code=NEUT%) 76 % 40-75 LYMPH% (test code=LYMPH%) 9 % 24-44 MONO% (test code=MONO%) 8 % 0-13 BASO % (test code=BASO%) 2 % 0-2 BAND (test code=BAND) 5 NRBC% (test code=NRBC%) 0 /100 WBC PLT-EST (test code=PLT-EST) NORMAL NORMAL ANISOCYTOISIS (test code=ANIS) 2+ ABS NEUT (test code=NEUT) 20.0 K/UL 1.2-7.2 [id number] 01:42:00* Test Item Value Reference Range Comments GLUCOSE (test code=URGLU) NEGATIVE MG/DL NEG-100 BILIRUBN (test code=URBILI) NEGATIVE NEGATIVE KETONE (test code=URKET) 15 MG/DL NEGATIVE BLOOD (test code=URBLD) LARGE UR PH (test code=URPH) 7.5 5.0-7.5 PROTEIN (test code=URPRO) 30 MG/DL NEGATIVE NITRITES (test code=URNIT) NEGATIVE NEGATIVE UROBILINGEN (test code=URURO) 0.2 EU/DL 0.2-1.0 LEUKOCYT (test code=URLEU) SMALL NEGATIVE UA COLOR (test code=UA COLOR) YELLOW YELLOW CLARITY (test code=CLARITY) TURBID CLEAR SP GRAV (test code=URSPGRAV) 1.014 1.000-1.025 UAMICRO (test code=UAMICRO) YES WBC (test code=URWBC) 38 /HPF 0-5 RBC (test code=URRBC) 122 /HPF 0-2 CASTS (test code=CAST) 1 /LPF 0-3 UR EPI (test code=EPI) 2 /LPF BACTERIA (test code=BACTERIA) TNTC NONE ABDOMEN 1 [id number] 07:31:00[place] [id number] IMAGING REPORTPatient Name: Madonna LYONS of Service: [id number]: 57 Sex: M Order #: 100 Room: QERDOB: 1960 X-Ray Number: [id number] Record Number: [id number] Hospital Number: [id number] Physician: KYLEIGH CASTELLANOS Physician: Aleida FERNANDES one view 06/06/2017History: Inability to urinate, pelvic painComparison: 05/11/2017Bowel gas pattern is normal with some stool scattered in the colon. Thereis no free air. Bones and soft tissues show no acute process. There aremild degenerative changes in spine.Impression:No acute process or adverse change.The study was performed on an emergent basis and preliminary report faxedto the Emergency Department by the [facility] service nearthe time of the exam.Electronically Signed By: Srikanth Gil M.D., 2017 7:29 AMLegally authenticated by REFUGIO AVERY 2017 07:29:22ABDOMEN 2 VIEWS 2016-12-30 07:26:[address] [id number] IMAGING REPORTPatient Name: Madonna LYONS of Service: [id number]: 56 Sex: M Order #: [id number] Room: ERSDOB: 1960 X-Ray Number: [id number] Record Number: [id number] Hospital Number: [id number] Physician: KYLEIGH CASTELLANOS Physician: KYLEIGH CASTELLANOS 2 VIEWS, 12/30/2016 2:50 AM:History: Abd pain without fever. . Abdominal pain. Abnormal weight loss.Comparison: 12/21/2016Technique: 2 view abdomenFindings:The bowel gas pattern is nonobstructive. There is no evidence of freeintra-abdominal air. There is no evidence of organomegaly or abnormalintra- abdominal calcifications.Impression:Nonobstructive bowel gas pattern without evidence of free air.Electronically Signed By: Gerardo Farrar M.D., 12/30/2016 7:24 AMLegally authenticated by PENNY CORTES 2016-12-30 07:24:39ABDOMEN 1 [id number] 08:08:0065 [address]IAGNOSTIC IMAGING REPORTPatient Name: Madonna LYONS of Service: [id number]: 56 Sex: M Order #: [id number] [facility] 1960 [facility] Number: [id number] Record Number: [id number] Hospital Number: [id number] Physician: Jimy LEDBETTER Physician: Joseph LEDBETTER one view 6:37 AMHistory: Abdominal pain.Findings:Bowel gas pattern is nonspecific, nonobstructive.There is no free air or mass effect.No definite renal or ureteral calcifications are seen overlying the kidneysor expected course of ureters.Impression:No definite acute intra-abdominal abnormality.Electronically Signed By: Justin Blair M.D., 12/21/2016 8:05 AMLegally authenticated by ALICIA CRISTOBAL 2016-12-21 08:05:42CT ABDOMEN/PELVIS [id number] 08:06:00[place] [id number] IMAGING REPORTPatient Name: Madonna LYONS of Service: [id number]: 56 Sex: M Order #: 400 Room: ERSDOB: 1960 X-Ray Number: [id number] Record Number: [id number] Hospital Number: [id number] Physician: Jimy LEDBETTER Physician: VITALY LEDBETTER abdomen and pelvis with contrast 6:22 AMHistory:Right inguinal hernia contains a loop of small bowel, fat andvessels. There is a loop of small bowel which is slightly dilated.Associated with air fluid level right lower quadrant adjacent to theaneurysm and the question of partial small bowel obstruction.This CT exam was performed using one or more of the following dosereduction techniques: Automated exposure control, adjustment of the MAand/or KV according to patient size or use of iterative reconstruction technique.Findings:Solid abdominal viscera demonstrate no mass lesions or lacera tions.Both kidneys enhance symmetrically. There is no hydronephrosis.There is no free air or free fluid. There are no abnormal fluidcollections.There is no CT e vidence for appendicitis, diverticulitis or pancreatitis.There is no small bowel obstruction detected.There is no obvious enlarged adenopathy.There is no defini te acute abnormality present.Normal lumbosacral spine is again noted and stable. Impression:No acute intra-abdominal or intrapelvic abnormality is detected.Elect ronically Signed By: Justin Blair M.D., 12/21/2016 8:03 AMLegally authenticate d by ALICIA CRISTOBAL 2016-12-21 08:03:52ABDOMEN 1 [id number] 07:27:[address] [id number] IMAGING REPORTPatient Name: Madonna LYONS of Service: [id number]: 56 Sex: M Order #: 700 [facility] 1960 [facility] Number: [id number] Record Number: [id number] Hospital Number: [id number] Phys ician: RAI RAMOSOrdering Physician: JEIMY HAND 1 VIEW, 12/07 6:26 AM:History: Abd pain without fever. . Abdominal pain. Rectal pain.C omparison: 11/01/2016Technique: 1 view abdomenFindings:The bowel gas pattern is nonobstructive. There is a normal amount of stoolin the colon. There is no evid ence of free intra-abdominal air. There is noevidence of organomegaly or abnorma l intra-abdominal calcifications.Impression:Nonobstructive bowel gas pattern wit hout evidence of free air.Electronically Signed By: Gerardo Farrar M.D., 2016 7:24 AMLegally authenticated by PENNY CORTES 2016-12-07 07:24:45SPINE LUMBAR [id number] 10:36:[address] [address]IIISQUQSJB IMAGING REPORTPatient Name: Madonna LYONS of Service: [id number]: 56 Sex: M Order #: 800 Room: ERSDOB: 1960 X-Ray Number: [id number] Record Number: [id number] Hospital Number: [id number] Physician: Earlene HAND Physician: Alma HAND spine complete, 11/01/2016, 1020 hoursHistory: Low back pain. Abdominal pain.Technique: 6 viewsComparison: 08/14/2016Findings: There are 5 lumbar vertebrae. There is stable grade 1-2 L5-H8xbwopixacisznzr and interbody ankylosis. Laminectomy defect is present andthere is likely some posterior bone graft ossification at this level.There is background mild multilevel primarily anterolateral spurringthroughout the majority of the lumbar spine. Remaining disc spaces arepreserved. No pars defects are noted. Surrounding paraspinal soft tissuesare maintained.Impression:1. Stable. No acute abnormality detected since prior.Electronically Signed By: Mahamed Lucas M.D., 11/01/2016 10:33 AMLegally authenticated by ZEHRA MONTERO 2016-11-01 10:33:59ABDOMEN 1 VIEW 2016-11-01 09:07:[address] [id number] IMAGING REPORTPatient Name: Madonna LYONS of Service: [id number]: 56 Sex: M Order #: 700 [facility] 1960 X-Ray Number: [id number] Record Number: [id number] Hospital Number: [id number] Physician: Earlene HAND Physician: Jeimy HAND one view, 11/01/2016, 0841 hoursHistory: Abdominal pain. Hypertension. Colitis.Technique: Supine portableComparison: 10/01/2016.Findings: Bowel gas pattern appears within normal limits. No gross free airnor organomegaly is evident. No significant abnormal calcification isdetected. There are some degenerative changes and possible fusion changesof the lumbosacral region. Lung bases are clear.Impression:1. No acute/active disease detected.Electronically Signed By: Mahamed Lucas M.D., 11/01/2016 9:04 AMLegally authenticated by ZEHRA MONTERO 2016-11-01 09:04:45ABDOMEN 2 [id number] 01:12:[address] [address]REINLKEGMG IMAGING REPORTPatient Name: Madonna LYONS of Service: [id number]: 56 Sex: M Order #: 100 [facility] 1960 [facility] Number: [id number] Record Number: [id number] Hospital Number: [id number] Physician: ROXANE CEBALLOSOrdering Physician: Connie DAIGLE 3 viewsHistory:dx back painorder sts constipationpt describes abd and back pain with constipation x 3 dayshx of lumbar surgNOHApsv carla RTRFindings: Nonspecific bowel gas pattern. No evidence of bowel obstructionor free air. There are postoperative changes of lumbar spine.Electronically Signed By: Victor Hugo Davis M.D., 10/01/2016 1:10 AMLegally authenticated by JEANNE ADAN 2016-10-01 01:10:16CT ABDOMEN/PELVIS WITH 2016-09-07 17:02:[address] [address]HJXTMPQPML IMAGING REPORTPatient Name: Madonna LYONS of Service: [id number]: 56 Sex: M Order #: 700 Room: ERSDOB: 1960 X-Ray Number: [id number] Record Number: [id number] Hospital Number: [id number] Physician: MAMADOU DICKOrdering Physician: TERESA MONTEMAYOR ABDOMEN AND PELVIS WITH CONTRAST:CLINICAL HISTORY: Abdominal pain, cramping; constipationTECHNIQUE: Examination is performed following intravenous administration of100 mL of Isovue-300. 4 mm axial sections were obtained with coronal andsagittal reconstructions. The GFR is 124 . Oral Gastrografin was utilizedfor enteric contrastThis CT exam was performed using one or more of the following dosereduction techniques: Automated exposure control, adjustment of the MA andor KV according to patient size or use of iterative reconstructiontechnique.FINDINGS: Lung bases are clear.The enhanced liver, spleen, pancreas, adrenals, kidneys, ureters andbladder are normal.The terminal ileum and appendix are normal.The remaining unopacified bowel loops are also unremarkable.There is moderate fecal residue seen in the colon consistent with thehistory.There are uncomplicated diverticula seen in the descending colon andrectosigmoid region.there are postoperative changes demonstrated in the lower lumbar spine atL5-S1 with grade 2 spondylolisthesis of L5 on S1.Impression: No acute changes are demonstrated. Moderate fecal residue ispresentElectronically Signed By: Noah Mccracken M.D., 09/07/2016 4:59 PMLegally authenticated by TABBY Sherwood 2016-09-07 16:59:48ABDOMEN 2 [id number] 02:24:00BA[place] [id number] IMAGING REPORTPatient Name: Madonna LYONS of Service: [id number]: 56 Sex: M Order #: 600 Room: ERSDOB: 1960 X-Ray Number: [id number] Record Number: [id number] Hospital Number: [id number] Phys ician: Sonia HESS Physician: Dequan HESS 2 views 0124 hours 09/01HISTORY: Abdominal pain with nausea, crampingFINDINGS: There is minimal sca ttered bowel gas without dilation. A fewair-fluid levels are present. There is n o free air. Minimal feces are seen.There are chronic spine changesIMPRESSION: Th e bowel gas pattern is nonspecific and essentiallyunremarkableElectronically Sig gume By: Iqra Woods M.D., 09/01/2016 2:22 AMLegally authenticated by CHAR ATKINSON 2016-09-01 02:22:09US LIMITED ABD [id number] 21:39:00BANathan [place] [id number] IMAGING REPORTPatient Name: Madonna LYONS of Service: [id number]: 56 Sex: M Order #: 800 Room: ERSDOB: 1960 X-Ray Number: [id number] Record Number: [id number] Hospital Number: [id number] Phys ician: DEXTER HU -Ordering Physician: Alireza DAIGLE upper quadrant abd ominal ultrasound 08/20/2016History: Generalized abdominal pain, nausea, vomiting and diarrheaComparison: 08/14/2016The liver shows increased echotexture suggestive of mild fattyinfiltration. Duplex imaging of main portal vein flow, gallbladde r,pancreas, aorta, IVC and right kidney are within normal limits where seen.Port ions of the aorta, right kidney and pancreas are obscured by bowel gas.The commo n bile duct measures 4 mm in diameter. Right kidney measures 10.4cm in length.Im pression:Possible mild fatty liver. No other acute process.Electronically Signed By: Srikanth Gil M.D., 08/20/2016 9:36 PMLegally authenticated by REFUGIO AVERY 2016 21:36:44ABDOMEN 2 [id number] 18:45:00BA22 Myers StreetIAGNOSTIC IMAGING REPORTPatient Name: Madonna LYONS of Service: [id number]: 56 Sex: M Order #: 700 [facility]: [facility]: 1960 X-Ray Number: [id number] Record Number: [id number] Hospital Number: [id number] Physician: DEXTER HU - Ordering Physician: DEXTER UH -Abdomen views.History: Constipation, pain.Technique: 4 views the abdomen were obtained in the supine and uprightprojection.Findings:There is no evidence to suggest obstruction or free air. The bowel gaspattern is nonspecific. There are degenerative changes at the lumbosacraljunction. Related clinically.Electronically Signed By: Cal Majano M.D., 08/20/2016 6:43 PMLegally authenticated by ANA White 26-08-11 18:43:05US LIMITED ABD [id number] 04:39:00[place] [id number] IMAGING REPORTPatient Name: Madonna LYONS of Service: [id number]: 56 Sex: M Order #: 700 Room: ERSDOB: 1960 X-Ray Number: [id number] Record Number: [id number] Hospital Number: [id number] Physician: Lorie CEBALLOS Physician: Adrian CEBALLOS upper quadrant abdominal ultrasound.Clinical history: Generalized abdominal pain, nausea and vomiting.Comparison study: CT of the abdomen and pelvis dated 08/09/2016.Finding s:The liver is normal in size and echogenicity. No liver masses are seen.Common bile duct is normal measuring 3 mm in diameter. Common bile duct,main portal vei n, inferior vena cava, proximal abdominal aorta, and rightkidney are unremarkabl e. Distal abdominal aorta and pancreas are obscuredby bowel gas.Impression:No ac inaja sonographic abnormalities.Electronically Signed By: Opal Rodriguez M.D., 08/14/2016 4:36 AMLegally authenticated by ANA ROSA NGUYỄN V 2016-08-14 04:36:26SPINE LUMBAR [id number] 01:54:[address] [id number] IMAGING REPORTPatient Name: Madonna LYONS of Service: [id number]: 56 Sex: M Order #: 400 [facility] 1960 X-Ray Number: [id number] Record Number: [id number] Hospital Number: [id number] Physician: Lorie CEBALLOS Physician: Summer [facility]ALLOSab[facility] 6 views.Clinical history: Abdominal pain, scrotal pain, muscle cramps, back pain,loss of sensation when the patient urinates, multiple prior back surgeries.Comparison studies: Lumbar spine x-ray series dated 07/29/2015.Findings:1. There are 5 nonrib-bearing lumbar vertebrae. No lumbar spine fracture ordislocation is seen.2. A 1.4 cm grade2 anterolisthesis of L5 on S1 is seen. Advanceddegenerative disc disease and degenerative joint disease is seen at L5-S1,resulting in advanced bilateral foraminal stenosis. L5 and S1 vertebraeappear to be fused.3. Other disc spaces and neural foramina in the lumbar spine areunremarkable.Electronically Signed By: Opal Rodriguez M.D., 08/14/2016 1:52 AMLegally authenticated by ANA ROSA LRNoel Magaly 2016-08-14 01:52:05CT ABDOMEN/PELVIS [id number] 01:51:00[place] [id number] IMAGING REPORTPatient Name: Madonna LYONS of Service: [id number]: 56 Sex: M Order #: 700 Room: ERSDOB: 1960 X-Ray Number: [id number] Record Number: [id number] Hospital Number: [id number] Phys ician: Earlene HAND Physician: RNOI HAND abdomen and pelvis witho ut contrast 0102 hours 08/09/2016HISTORY: Acute abdominal pain with nausea and vom iting, history ofenteritis and colitisCOMPARISON: 07/27/2016FINDINGS: Evaluation is limited without contrastThere is mild dilation of a few small bowel loops and there is suggestionof wall thickening involving some small bowel loops, but this is notcertain. Overall the small bowel findings appear much improved comparedw ith the prior scan. There is no longer any appreciable mesentericinflammation. T here is no free fluid. There is no free air. There is noevidence of mass or absc ess.No new finding is seen. There are severe chronic spine changes and therehas been spine surgery. Minimal vascular calcifications are present.Prostate gland i s moderately enlarged.IMPRESSION: There is suggestion of mild enteritis, but thi s overall is muchimproved from the prior scan. There has been no adverse change. Electronically Signed By: Iqra Woods M.D., 08/09/2016 1:48 AMLegally authentic ated by CHAR ATKINSON 2016-08-09 01:48:30CT ABDOMEN/PELVIS [id number] 04:24:[address] [address]IJHLWKXRVO IMAGING REPORTPatient Name: Madonna LYONS of Service: [id number]: 56 Sex: M Order #: 900 Room: ERSDOB: 1960 X- Ray Number: [id number] Record Number: [id number] Hospital Number: [id number] Physician: RAI RAMOSOrdermalik Physician: SCOTT HESS abdomen and pelvis with IV contrast 0350 hours 07/27/2016HISTORY: Acute abdominal pain with nausea and vomitingCOMPARISON: 11/08/2015FINDINGS: There is minimal scattered free fluid. There is mild or moderatewall thickening involving most of the small bowel loops with adjacentmesenteric edema. Also there is wall thickening and wall inflammationinvolving at least the ascending and transverse colon. There is no boweldilation or obstruction. There is no evidence of mass or abscess and thereis no free air. The stomach is mildly distended.There are minimal vascular calcificationsThere has been spine surgeryBoth knees excrete promptly and there is no urinary dilationLiver, gallbladder, bile ducts and pancreas are unremarkableIMPRESSION: There is at least moderate diffuse enteritis and colitis. Theappearance is nonspecific. Consider infection.Electronically Signed By: Iqra Woods M.D., 07/27/2016 4:22 AMLegally authenticated by CHAR ATKINSON 2016-07-27 04:22:04ABDOMEN 2 VIEWS 2016-07-27 03:54:[address]IAGNOSTIC IMAGING REPORTPatient Name: Madonna LYONS of Service: [id number]: 56 Sex: M Order #: 800 Room: QERDOB: 1960 X-Ray Number: [id number] Record Number: [id number] Hospital Number: [id number] Physician: Prince RAMOS Physician: Dequan HESS 2 views 0308 hours 07/27/2016HISTORY: Nausea and vomiting, acute abdominal pain and distentionFINDINGS: There is minimal bowel gas without evidence of bowel dilation. Noair-fluid level is seen. Minimal feces are visualized. There are chronicspine changesIMPRESSION: No acute findingElectronically Signed By: Iqra Woods M.D., 07/27/2016 3:52 AMLegally authenticated by CHAR ATKINSON 2016-07-27 03:52:06ABDOMEN 2 [id number] 19:42:[address] [address]LZMYRXQWGD IMAGING REPORTPatient Name: Madonna LYONS of Service: [id number]: 56 Sex: M Order #: 100 Room: ERSDOB: 1960 X- Ray Number: [id number] Record Number: [id number] Hospital Number: [id number] Physician: Darren PIERCE Physician: Rakel GRANADOS views 1929 hours.History: Abdomen pain.Technique: 4 views of the abdomen were reviewed.Findings:The bowel gas pattern is nonspecific. There is no evidence to suggestobstruction or free air. The osseous structures appear intact. Correlateclinically.Electronically Signed By: Cal Majano M.D., 06/30/2016 7:39 PMLegally authenticated by ANA White 2016-06-30 19:39:57
--- NOTE | 2018-09-05 02:13 | Diagnostic Imaging Report ---
EXAM: ABDOMEN ACUTE SERIES W/PA CXR, DATE: 09/05/2018 1:06 AM INDICATION: Pain. Nausea. COMPARISON: None FINDINGS: LINES/TUBES: Botello catheter projected on the pelvis. BOWEL PATTERN: No evidence for obstruction. Moderate volume of stool within the colon. SOFT TISSUES: No abnormal calcifications. No mass effect. LUNG BASES: Not included BONES: No acute findings. Degenerative changes of the lower lumbar spine with a transitional vertebra. CHEST: No acute thoracic abnormality. IMPRESSION: Nonobstructive bowel gas pattern. Signed by: Dr. Nehemias Kaiser M.D. on 09/05/2018 2:10 AM
[2018-09-05 02:38] LABS: BILIRUBIN,URINE NEGATIVE (NEGATIVE); CLARITY,URINE CLEAR (CLEAR); COLOR,URINE YELLOW (YELLOW); KETONES,URINE NEGATIVE (NEGATIVE); LEUKOCYTE ESTERASE ,URINE NEGATIVE (NEGATIVE); NITRITE,URINE NEGATIVE (NEGATIVE); PROTEIN,URINE DIPSTICK NEGATIVE (NEGATIVE); URINE UROBILINOGEN 0.2 mg/dL (0.2 - 1)
[2018-09-05 02:43] LABS: EPITHELIAL CELLS,URINE FEW /LPF; RBC,URINE 0-5 /HPF (0-5); WBC,URINE (MAN) 0-5 /HPF (0-5)
[2018-09-05 02:53] LABS: AMPHETAMINES SCREEN,URINE NEGATIVE (NEGATIVE); BENZODIAZEPINES SCREEN,URINE POSITIVE (NEGATIVE); PHENCYCLIDINE SCREEN,URINE NEGATIVE (NEGATIVE)
== END 2018-09-05 03:39 | disposition home or self-care (01) ==
LOC: ER 00:58
DX: R10.32 Left lower quadrant pain (principal); K59.00 Constipation, unspecified; F41.9 Anxiety disorder, unspecified; G40.909 Epilepsy, unspecified, not intractable, without status epilepticus; Z85.6 Personal history of leukemia; Z87.891 Personal history of nicotine dependence
CPT/HCPCS: 74022; 80307; 81001; 99283